=== PATIENT | female | born 1955 | race Caucasian/White ===

== ENCOUNTER 2018-03-03 04:15 | Inpatient (IN) | payer MEDICAID, SELFPAY ==
[2018-03-03] VITALS (30 sets, daily range): BP systolic 101–149; BP diastolic 30–78; PULSE 83–124; RESP 10–20; TEMP 35.6–37.7; O2SAT 94–100; BMI 21.0; BMI 22.4; BMI 22.5
--- NOTE | 2018-03-03 04:21 | NURSING ---
GLUCOSE READS HIGH
--- NOTE | 2018-03-03 04:25 | EKG12_ITS ---
Test Reason : Blood Pressure : / mmHG Vent. Rate : 113 BPM Atrial Rate : 094 BPM P-R Int : 000 ms QRS Dur : 086 ms QT Int : 472 ms P-R-T Axes : 000 043 050 degrees QTc Int : 647 ms Sinus tachycardia Nonspecific ST and T wave abnormality Prolonged QT Abnormal ECG Confirmed by MATT THOMAS, AHSAN ([id number]), graphic editor BLAISE KEENE ([id number] on 03/05/2018 10:59:23 AM Referred By: TAMARA Confirmed By:AHSAN GUTIERREZ MD
--- NOTE | 2018-03-03 04:27 | ED.VISSUMM ---
- ER Visit Summary Date of Service: 03/03/18 Chief Complaint: Decreased level of consciousness History of Present Illness: The patient is a 62 F who I am unable to obtain any useful history on. Patient is answering yes and no questions. She denies any fever or chills. No sore throat. She does report she has a cough that is productive. She is unsure when she last checked her sugar. She reports that she takes pills as well as insulin for her diabetes. Physical Examination: Vitals: Stable. Afebrile. General: Well-nourished and well-developed. Head: Normocephalic atraumatic. Neck: Supple, no lymphadenopathy. No JVD. Nontender. Cardiovascular: Tachycardic regular rhythm. No murmurs. Respiratory: No respiratory distress. Clear to auscultation bilaterally. Abdominal: Soft, nontender, nondistended, normal bowel sounds. No guarding, rebound, or peritoneal signs. Back: Nontender. Extremities: Nontender, no edema. Skin: Normal color, no rash. Neurologic: Lethargic, but arouses to voice. Moves all extremities well. Psych: Normal affect. Test Results: Accu-Chek is greater than 600. CBC is more for white count of 15.2 with 97 neutrophils and 5 lymphocytes. Chem-7 is more for chloride of 88, CO2 of 5, glucose of a 99, creatinine 1.94. Phosphorus is 8.2. Magnesium is 3.8. UA is negative for infection. Troponin is negative. She has moderate serum ketones. EKG is sinus tach at [address] changes. Chest x-ray shows chronic changes. Venous blood gas shows a pH of 7.026, CO2 of 12.1, and bicarb of 3.2. Emergency Department Course and Treatment: Patient had an IV placed. She was given 2 L normal saline. Patient was placed on an insulin drip. Treatment Plan: Patient will be admitted to the ICU for further evaluation and treatment. Disposition: Admitted in serious condition. Impression: 1. DKA. 2. Renal insufficiency. 3. Critical care time 30 minutes. This note was generated with [employer] software. It may contain incorrect words, spelling, and punctuation that were not noted in review of the chart prior to signing ED Disposition - Plan for ED Patient: Chief Complaint: Weakness Referrals: Care Physician,No Primary [Primary Care Provider] -
--- NOTE | 2018-03-03 04:35 | RAD_ITS ---
STUDY: X-RAY CHEST REASON FOR EXAM: Female, 62 years old. Shortness of breath. Diabetic emergency. TECHNIQUE: Single AP portable view of the chest. COMPARISON: None. FINDINGS: Lungs are underexpanded. There is no demonstrated pulmonary infiltrate. There is no demonstrated pleural abnormality. Normal heart size, taking into account limited depth of inspiration, leftward rotation, as well as AP portable technique. Normal mediastinum and morales. Normal visualized pulmonary arteries. There is atherosclerotic calcification of the aortic arch with tortuosity. There are diffuse degenerative changes of the visualized thoracic spine. Normal visualized ribs, clavicles, and shoulders. There is no demonstrated abnormality of the visualized soft tissue structures of the upper abdomen. RAD/Chest 1 View (Portable) IMPRESSION: No evidence for acute cardiopulmonary pathology. Electronically Signed: Sawyer Byrne MD at 5:36 EDT , Service support ,
[2018-03-03 04:42] LABS: Bacteria 0 SEEN /hpf (None Seen); Mucous, Urine 0 SEEN /hpf (<or=2+); Red Blood Cells-Urine 0 SEEN /hpf (0-5); Squamous Epithelial Cells - UA 0 SEEN /hpf (5-10); White Blood Cells 0 SEEN /hpf (0-5)
[2018-03-03 04:48] LABS: Color, Urine Yellow (Yellow); Glucose, Dipstick 1000 mg/dl (Normal); Leukocyte Esterase-Dipstick Negative /ul (Negative); Nitrite-Dipstick Negative (Negative); Occult Blood-Urine 25 /ul (Negative); Protein-Dipstick 100 mg/dl (Negative); Specific Gravity, Urine 1.015 (1.002-1.030); Urine Bilirubin Dipstick Negative (Negative); Urine Clarity Clear (Clear); Urine Urobilinogen Normal (Normal)
[2018-03-03 04:51] LABS: Bedside Glucose > 500 mg/dL (70-110)
[2018-03-03] MEDS: 0.9% Normal Saline 1,000 ML 999 ML IV ×3 (04:54→08:45)
[2018-03-03 05:00] LABS: Yeast-Urine RARE /hpf (None Seen)
[2018-03-03 05:02] LABS: Ketone-Dipstick 150 mg/dl (Negative)
--- NOTE | 2018-03-03 05:13 | CT_ITS ---
STUDY: CT BRAIN WITHOUT CONTRAST REASON FOR EXAM: Female, 62 years old. Decreased level of consciousness. Elevated blood pressure and blood sugar. RADIATION DOSAGE (If Supplied By Facility): CTDIvol = ( 44.99 ) mGy, DLP = ( 762.36 ) mGycm TECHNIQUE: Transaxial CT imaging of the brain was performed without administration of intravenous contrast material. Individualized dose optimization techniques were used for this CT. COMPARISON: None. FINDINGS: Normal soft tissue structures. Normal calvarium. There is mild cerebral atrophy with widening of the extra-axial spaces and ventricular dilatation. There are areas of decreased attenuation within the white matter tracts of the supratentorial brain, consistent with microvascular disease changes. Normal basal ganglia and thalami. Normal brainstem. Normal cerebellum. There is atherosclerotic calcification of the vertebral and cavernous carotid arteries. There is no intracranial hemorrhage. There are no findings of an acute ischemic infarction. Normal visualized paranasal sinuses. CT/Brain/Head without Contrast IMPRESSION: Chronic involutional changes of the brain. No demonstrated acute intracranial process. Electronically Signed: Sawyer Byrne MD at 6:20 EDT , Service support ,
[2018-03-03 05:16] LABS: Bedside Glucose > 500 mg/dL (70-110)
[2018-03-03 05:20] LABS: Absolute Neutrophil Count 13.6 X10^3/uL (2.0-7.7); Basophil# 0.02 X10^3/uL; Basophil% 0.1 % (0-1); Hematocrit 38.8 % (37-47); Hemoglobin 12.4 g/dl (12.0-15.0); Lymphocyte % 4.6 % (19-41); Mean Corpuscular Hgb 29.9 pg (27.0-32.0); Mean Corpuscular Volume 93.5 fL (81-99); Mean Platelet Vol. 13.2 fl (6.2-12.0); Monocyte# 0.79 X10^3/uL; Monocyte% 5.2 % (0-10); Neutrophil # 13.64 X10^3/uL (2.7-7.7); Neutrophil % 89.8 % (47-70); Platelet Count 326 K/mm3 (150-450); RBC Distribution Width CV 13.3 % (11.6-14.6); RBC Distribution Width SD 45.3 fl (35.1-43.9); Red Blood Count 4.15 M/mm3 (4.2-5.4); White Blood Count 15.2 K/mm3 (4.4-11.0)
[2018-03-03 05:21] LABS: Differential Indicated SCAN CRITERIA MET; POSITIVE COUNT NO; POSITIVE DIFFERENTIAL NO; POSITIVE MORPHOLOGY YES
[2018-03-03 05:32] LABS: Anion Gap 43 (5-15); BUN 29 mg/dL (7-18); BUN/Creat Ratio 14.9 RATIO (10-20); Chloride 88 mmol/L (98-107); Creatinine, Serum 1.94 mg/dL (0.55-1.02); EST Glomerular Filtration Rate 28 mL/min (>60); Est Glom Filt Rate - Afr Amer 33 mL/min (>60); Estimated Creatinine Clearance 23.48 ml/min; Glucose 899 mg/dL (74-106); Magnesium 3.8 mg/dL (1.6-2.6); Phosphorus 8.2 mg/dL (2.5-4.9); Potassium 3.6 mmol/L (3.5-5.1); Sodium Level 136 mmol/L (136-145)
--- NOTE | 2018-03-03 06:19 | NURSING ---
STILL READING HIGH
[2018-03-03 06:20] LABS: Differential Comment SCANNED
--- NOTE | 2018-03-03 06:37 | PCM.HP.STD ---
Problem List (1) DKA (diabetic ketoacidoses) Status: Acute Qualifiers: Diabetes mellitus type: type 2 Diabetes mellitus complication detail: without coma Qualified Code(s): E11.10 - Type 2 diabetes mellitus with ketoacidosis without coma (2) CINDY (acute kidney injury) Status: Acute (3) GERD (gastroesophageal reflux disease) Status: Chronic Qualifiers: Esophagitis presence: esophagitis presence not specified Qualified Code(s): K21.9 - Gastro-esophageal reflux disease without esophagitis (4) HLD (hyperlipidemia) Status: Chronic Qualifiers: Hyperlipidemia type: unspecified Qualified Code(s): E78.5 - Hyperlipidemia, unspecified (5) HTN (hypertension) Status: Chronic Qualifiers: Hypertension type: essential hypertension Qualified Code(s): I10 - Essential (primary) hypertension (6) Diabetes mellitus, type II Status: Chronic Qualifiers: Diabetes mellitus penitentiary insulin use: with manager intermediate use Diabetes mellitus complication status: with unspecified complications Qualified Code(s): E11.8 - Type 2 diabetes mellitus with unspecified complications; Z79.4 - MCFP (current) use of insulin History of Present Illness Date of Admission: 03/03/18 Chief Complaint: Family called 911 secondary to lethargy, confusion, N/V The patient is a 62 y/o F w/ PMHx: Diabetes mellitus type II, HTN, HLD, GERD although not best historian in current state who presents to the [facility] ED on 03/03/18 w/ history of being found by a neighbor and noted to be very lethargic and less responsive prompting presentation to the ED. In the emergency room patient is able to give some history but only able to answer yes and no questions. She does state that she is diabetic but cannot state whether she is type I or II, intensive, hyperlipidemia, reflux but no other information. To the ED physician she noted that she has had a mild cough and it has been productive however upon repeat questioning she denies any shortness of breath or cough. Family eventually arrived to the ED as they had called 911 and originally had her present to the hospital and noted that over the last 24 hours she has become more confused, lethargic, nauseous with emesis bouts, having very irregular behavior including stripping and defecating in the garbage can instead of the toilet. Family notes that she just recently moved in with them and was prior living alone. In the ED workup includes T 97.4, heart rate 112, BP 125/65, respiratory rate 16, 100% room air, CBC with WBC 15.2, hemoglobin 12.4, platelet 326 with left shift, BMP with chloride 88, carbon dioxide 5, anion gap 43, BUN/creatinine 29/1.94, glucose 899, hemoglobin A1c pending, phosphorus 8.2, magnesium 3.8, troponin less than 0.015, urinalysis with protein 100, glucose 1000, ketones 150, occult blood 25 otherwise unremarkable, chest x-ray with no acute findings, CT head with no acute findings. In the ED patient administered normal saline, insulin drip initiated. Upon admission Dr. Thomas, retail client solutions consultant contacted and consulted given severity of patient presentation and ICU admission. Past Medical History Past Medical History (Chronic Problems): Chronic Problems GERD (gastroesophageal reflux disease) (Chronic) HLD (hyperlipidemia) (Chronic) HTN (hypertension) (Chronic) Diabetes mellitus, type II (Chronic) Allergies Unable to Assess Allergy (Verified 03/03/18 04:17) Home Medications: Ambulatory Orders Medication Instructions Recorded Acetaminophen [Tylenol Extra 500 mg PO Q6H PRN PRN 03/03/18 Strength] Albuterol Inhaler [Ventolin Hfa 2 puff INHALATION Q6H PRN PRN 03/03/18 (SP)] Atorvastatin Calcium 40 mg PO DAILY 03/03/18 Calcium Citrate 200 mg PO DAILY 03/03/18 Carvedilol 6.25 mg PO BID 03/03/18 Flavoxate HCl 100 mg PO TID PRN 03/03/18 Gabapentin [Neurontin] 600 mg PO TIDCM 03/03/18 Guaifenesin [Mucinex] 600 mg PO BID 03/03/18 Insulin Aspart [Novolog Flexpen] 03/03/18 Insulin Glargine,Hum.rec.anlog 100 unit SQ 03/03/18 [Lantus Solostar] Loperamide HCl [Loperamide] 2 mg PO 4X/DAY PRN PRN 03/03/18 Magnesium Oxide [Mag-Ox 400] 400 mg PO DAILY 03/03/18 Metformin HCl 500 mg PO BID 03/03/18 Methocarbamol [Robaxin] 500 mg PO TID PRN 03/03/18 Omeprazole 40 mg PO DAILY 03/03/18 Potassium Citrate [Potassium 10 meq PO DAILY 03/03/18 Citrate ER] Surgical History: - - Patient may possibly have had hysterectomy per discussion but again poor historian currently. Family confirms . 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 Paternal History Items: - - Patient possibly stating that there is a maternal and paternal family history of heart disease and diabetes. Review of Systems Unable to obtain accurate/complete ROS d/t: Unable to obtain appropriate ROS secondary to acute presentation, confusion Comment: Family states that she has been confused, nauseous with bouts of emesis, moaning frequently, lethargic over the last 24 hours. VTE Information - Inpt Only VTE Present on Admission: No VTE Mechan Device Prophylaxis: SCD's VTE Pharm Prophylaxis ordered?: Yes Subjective: Laying in the ED bed, lethargic, increased respiratory rate, uncomfortable appearing. Objective: Physical Examination: General: awakens to stimuli, not markedly alert, not oriented, answering some questions w/ yes and no only, laying in the ED bed, ill appearing, moaning. Skin: normal color, turgor, no icterus, cyanosis. HEENT: AT/NC, EOM unable to be assessed, pupils sluggish, not markedly response, lazy eye present, dry MM, no carotid bruits or JVD noted. Lungs: Diminished BS BL bases, increased effort, some accessory muscle usage, purse lip breathing, no rales, ronchi or wheezing. Heart: Tachycardic with regular rhythm; no gallop, rub audible. Abdomen: soft, NTTP, ND, normal BS, no HSM. Extremities: no cyanosis, clubbing, or edema. Neurological: awakens to stimuli, not markedly alert, not oriented, answering some questions w/ yes and no only; cognitive function not intact; difficult to assess CM, moving all extremities, strength severely globally decreased secondary to acute presentation. Psychiatric: affect appears lethargic, no acute evidence of depressive or anxiety feelings. - Physical Exam Vital Signs Temp Pulse Resp BP Pulse Ox 97.4 F L 117 H 16 126/68 H 100 08/06/18 04:17 03/03/18 06:03 03/03/18 06:03 03/03/18 06:03 03/03/18 06:03 Oxygen Delivery Method Room Air Weight: 115 lb 4.828 oz Body Mass Index (BMI) 21.0 Finger Stick Blood Glucose 890 Laboratory Tests Past 24 Hrs 03/03/18 03/03/18 03/03/18 04:39 04:48 04:48 WBC 15.2 H RBC 4.15 L Hgb 12.4 Hct 38.8 MCV 93.5 MCH 29.9 MCHC 32.0 RDW 13.3 RDW Differential 45.3 H Plt Count 326 MPV 13.2 H Immature Gran % (Auto) 0.300 Neut % (Auto) 89.8 H Lymph % (Auto) 4.6 L [place] % (Auto) 5.2 Eos % (Auto) 0.0 Baso % (Auto) 0.1 Absolute Neuts (auto) 13.6 H Absolute Lymphs (auto) 0.70 L Total Counted Not Reportable Differential Comment SCANNED Sodium 136 Potassium 3.6 Chloride 88 L Carbon Dioxide 5.0 L* Anion Gap 43 H BUN 29 H Creatinine 1.94 H Estim Creat Clear Calc 23.48 Est GFR (MDRD) Af Amer 33 L Est GFR (MDRD) Non-Af 28 L BUN/Creatinine Ratio 14.9 Glucose 899 H* Hemoglobin A1c Calcium 9.0 Phosphorus 8.2 H Magnesium 3.8 H Troponin I < 0.015 Urine Color Yellow Urine Clarity Clear Urine pH 6.0 Ur Specific [place] 1.015 Urine Protein 100 H Urine Glucose (UA) 1000 H Urine Ketones 150 H Urine Occult Blood 25 H Urine Nitrite Negative Urine Bilirubin Negative Urine Urobilinogen Normal Ur Leukocyte Esterase Negative Urine RBC 0 SEEN Urine WBC 0 SEEN Ur Squamous Epith Cells 0 SEEN Urine Bacteria 0 SEEN Urine Mucus 0 SEEN Urine Yeast RARE Acetone Level 03/03/18 03/03/18 04:48 04:48 WBC RBC Hgb Hct MCV MCH MCHC RDW RDW Differential Plt Count MPV Immature Gran % (Auto) Neut % (Auto) Lymph % (Auto) [place] % (Auto) Eos % (Auto) Baso % (Auto) Absolute Neuts (auto) Absolute Lymphs (auto) Total Counted Differential Comment Sodium Potassium Chloride Carbon Dioxide Anion Gap BUN Creatinine Estim Creat Clear Calc Est GFR (MDRD) Af Amer Est GFR (MDRD) Non-Af BUN/Creatinine Ratio Glucose Hemoglobin A1c Pending Calcium Phosphorus Magnesium Troponin I Urine Color Urine Clarity Urine pH Ur Specific [place] Urine Protein Urine Glucose (UA) Urine Ketones Urine Occult Blood Urine Nitrite Urine Bilirubin Urine Urobilinogen Ur Leukocyte Esterase Urine RBC Urine WBC Ur Squamous Epith Cells Urine Bacteria Urine Mucus Urine Yeast Acetone Level MODERATE H POC Glucose 03/03/18 03/03/18 05:09 04:18 POC Glucose > 500 H* > 500 H* Assessment/Plan All Active Problems DKA (diabetic ketoacidoses) (Acute) CINDY (acute kidney injury) (Acute) The patient is a 62 y/o F w/ PMHx: Diabetes mellitus type II, HTN, HLD, GERD although not best historian in current state who presents to the [facility] ED on 03/03/18 w/ history of being found by a neighbor and noted to be very lethargic and less responsive prompting presentation to the ED. (1) Acute Encephalopathy secondary to DKA w/ Diabetes mellitus type ? II, Unclear w/ Metabolic Acidosis: In the ED workup includes T 97.4, heart rate 112, BP 125/65, respiratory rate 16, 100% room air, CBC with WBC 15.2, hemoglobin 12.4, platelet 326 with left shift, BMP with chloride 88, carbon dioxide 5, anion gap 43, BUN/creatinine 29/1.94, glucose 899, hemoglobin A1c pending, phosphorus 8.2, magnesium 3.8, troponin less than 0.015, urinalysis with protein 100, glucose 1000, ketones 150, occult blood 25 otherwise unremarkable, chest x-ray with no acute findings, CT head with no acute findings. Patient started on an insulin drip. Will admit to ICU, will consult retail client solutions consultant who is aware of admission, continue on insulin drip, check serial K+, glucose w/ IVF changes pending these levels, serial chemistry, obtain mag, phos daily w/ repletion as needed, transition to home SC regimen when gap closed w/ overlap on drip, nutrition consultation. Encouraged diet and insulin regimen compliance. ABG pending. TCK pending as unclear timeline from being found. (2) Suspected Acute kidney injury: Secondary to #1. Admission BUN/Cr 29/1.94, prior baseline creatinine unclear but given presentation suspect acute. Will aggressively hydrate, hold nephrotoxic medications and repeat chemistry in AM. If no improvement would plan FeNa assessment. (3) Hypertension:Hold home regimen given severity of encephalopathy, PRN lopressor. (4) Hyperlipidemia: Hold home statin regimen given severity of encephalopathy. (5) GERD: PPI. (6) DVT Prophylaxis: SCDs, heparin. (7) CODE status: Patient unable to discuss status. Family eventually arrived and notes that she does not have a healthcare power of district attorney or living will but that they are her closest living relatives (7 nephew with whom she recently moved in). Discussed CODE status at length including difference between FULL code, DNR-CCA and DNR-CC status. Following discussions about the differences in these status, family requested FULL code status. Advanced Care Planning Face to Face Time: 20 minutes. Code Visit Inpatient E&M: 90667 Init Hosp L3 Procedures: 42678 Advncd Care Plan 30 Min
--- NOTE | 2018-03-03 06:43 | HP.PCM_ITS ---
Problem List (1) DKA (diabetic ketoacidoses) Status: Acute Qualifiers: Diabetes mellitus type: type 2 Diabetes mellitus complication detail: without coma Qualified Code(s): E11.10 - Type 2 diabetes mellitus with ketoacidosis without coma (2) CINDY (acute kidney injury) Status: Acute (3) GERD (gastroesophageal reflux disease) Status: Chronic Qualifiers: Esophagitis presence: esophagitis presence not specified Qualified Code(s) : K21.9 - Gastro-esophageal reflux disease without esophagitis (4) HLD (hyperlipidemia) Status: Chronic Qualifiers: Hyperlipidemia type: unspecified Qualified Code(s): E78.5 - Hyperlipidemia , unspecified (5) HTN (hypertension) Status: Chronic Qualifiers: Hypertension type: essential hypertension Qualified Code(s): I10 - Essential (primary) hypertension (6) Diabetes mellitus, type II Status: Chronic Qualifiers: Diabetes mellitus long goods drier insulin use: with long goods drier use Diabetes mellitus complication status: with unspecified complications Qualified Code(s) : E11.8 - Type 2 diabetes mellitus with unspecified complications; Z79.4 - terminal system operator (current) use of insulin History of Present Illness Date of Admission: 03/03/18 Chief Complaint: Family called 911 secondary to lethargy, confusion, N/V The patient is a 62 y/o F w/ PMHx: Diabetes mellitus type II, HTN, HLD, GERD although not best historian in current state who presents to the [facility] ED on w/ history of being found by a neighbor and noted to be very lethargic and less responsive prompting presentation to the ED. In the emergency room patient is able to give some history but only able to answer yes and no questions. She does state that she is diabetic but cannot state whether she is type I or II, intensive, hyperlipidemia, reflux but no other information. To the ED physician she noted that she has had a mild cough and it has been productive however upon repeat questioning she denies any shortness of breath or cough. Family eventually arrived to the ED as they had called 911 and originally had her present to the hospital and noted that over the last 24 hours she has become more confused, lethargic, nauseous with emesis bouts, having very irregular behavior including stripping and defecating in the garbage can instead of the toilet. Family notes that she just recently moved in with them and was prior living alone. In the ED workup includes T 97.4, heart rate 112, BP 125/65, respiratory rate 16, 100% room air, CBC with WBC 15.2, hemoglobin 12.4, platelet 326 with left shift, BMP with chloride 88, carbon dioxide 5, anion gap 43, BUN/creatinine 29/1.94, glucose 899, hemoglobin A1c pending, phosphorus 8.2 , magnesium 3.8, troponin less than 0.015, urinalysis with protein 100, glucose 1000, ketones 150, occult blood 25 otherwise unremarkable, chest x-ray with no acute findings, CT head with no acute findings. In the ED patient administered normal saline, insulin drip initiated. Upon admission Dr. Thomas, business planning manager contacted and consulted given severity of patient presentation and ICU admission. Past Medical History Past Medical History (Chronic Problems): Chronic Problems GERD (gastroesophageal reflux disease) (Chronic) HLD (hyperlipidemia) (Chronic) HTN (hypertension) (Chronic) Diabetes mellitus, type II (Chronic) Allergies Unable to Assess Allergy (Verified 03/03/18 04:17) Home Medications: Ambulatory Orders Medication Instructions Recorded Acetaminophen [Tylenol Extra 500 mg PO Q6H PRN PRN 03/03/18 Strength] Albuterol Inhaler [Ventolin Hfa 2 puff INHALATION Q6H PRN PRN 03/03/18 (SP)] Atorvastatin Calcium 40 mg PO DAILY 03/03/18 Calcium Citrate 200 mg PO DAILY 03/03/18 Carvedilol 6.25 mg PO BID 03/03/18 Flavoxate HCl 100 mg PO TID PRN 03/03/18 Gabapentin [Neurontin] 600 mg PO TIDCM 03/03/18 Guaifenesin [Mucinex] 600 mg PO BID 03/03/18 Insulin Aspart [Novolog Flexpen] 03/03/18 Insulin Glargine,Hum.rec.anlog 100 unit SQ 03/03/18 [Lantus Solostar] Loperamide HCl [Loperamide] 2 mg PO 4X/DAY PRN PRN 03/03/18 Magnesium Oxide [Mag-Ox 400] 400 mg PO DAILY 03/03/18 Metformin HCl 500 mg PO BID 03/03/18 Methocarbamol [Robaxin] 500 mg PO TID PRN 03/03/18 Omeprazole 40 mg PO DAILY 03/03/18 Potassium Citrate [Potassium 10 meq PO DAILY 03/03/18 Citrate ER] Surgical History: - - Patient may possibly have had hysterectomy per discussion but again poor historian currently. Family confirms . Psychiatric History: No pertinent psych hx HUMAN PERFORMANCE CONSULTANT History: No pertinent HUMAN PERFORMANCE CONSULTANT history Lives: Alone Smoking Status: Unknown if ever smoked Tobacco Use: Non-smoker Alcohol: None Drugs: None - *Family History Maternal History Items: - - Patient possibly stating that there is a maternal and paternal family history of heart disease and diabetes. Paternal History Items: - - Patient possibly stating that there is a maternal and paternal family history of heart disease and diabetes. Review of Systems Unable to obtain accurate/complete ROS d/t: Unable to obtain appropriate ROS secondary to acute presentation, confusion Comment: Family states that she has been confused, nauseous with bouts of emesis , moaning frequently, lethargic over the last 24 hours. VTE Information - Inpt Only VTE Present on Admission: No VTE Mechan Device Prophylaxis: SCD's VTE Pharm Prophylaxis ordered?: Yes Subjective: Laying in the ED bed, lethargic, increased respiratory rate, uncomfortable appearing. Objective: Physical Examination: General: awakens to stimuli, not markedly alert, not oriented, answering some questions w/ yes and no only, laying in the ED bed, ill appearing, moaning. Skin: normal color, turgor, no icterus, cyanosis. HEENT: AT/NC, EOM unable to be assessed, pupils sluggish, not markedly response , lazy eye present, dry MM, no carotid bruits or JVD noted. Lungs: Diminished BS BL bases, increased effort, some accessory muscle usage, purse lip breathing, no rales, ronchi or wheezing. Heart: Tachycardic with regular rhythm; no gallop, rub audible. Abdomen: soft, NTTP, ND, normal BS, no HSM. Extremities: no cyanosis, clubbing, or edema. Neurological: awakens to stimuli, not markedly alert, not oriented, answering some questions w/ yes and no only; cognitive function not intact; difficult to assess CM, moving all extremities, strength severely globally decreased secondary to acute presentation. Psychiatric: affect appears lethargic, no acute evidence of depressive or anxiety feelings. - Physical Exam Vital Signs Temp Pulse Resp BP Pulse Ox 97.4 F L 117 H 16 126/68 H 100 08/06/18 04:17 03/03/18 06:03 03/03/18 06:03 03/03/18 06:03 03/03/18 06:03 Oxygen Delivery Method Room Air Weight: 115 lb 4.828 oz Body Mass Index (BMI) 21.0 Finger Stick Blood Glucose 890 Laboratory Tests Past 24 Hrs 03/03/18 03/03/18 03/03/18 04:39 04:48 04:48 WBC 15.2 H RBC 4.15 L Hgb 12.4 Hct 38.8 MCV 93.5 MCH 29.9 MCHC 32.0 RDW 13.3 RDW Differential 45.3 H Plt Count 326 MPV 13.2 H Immature Gran % (Auto) 0.300 Neut % (Auto) 89.8 H Lymph % (Auto) 4.6 L Cavalier % (Auto) 5.2 Eos % (Auto) 0.0 Baso % (Auto) 0.1 Absolute Neuts (auto) 13.6 H Absolute Lymphs (auto) 0.70 L Total Counted Not Reportable Differential Comment SCANNED Sodium 136 Potassium 3.6 Chloride 88 L Carbon Dioxide 5.0 L* Anion Gap 43 H BUN 29 H Creatinine 1.94 H Estim Creat Clear Calc 23.48 Est GFR (MDRD) Af Amer 33 L Est GFR (MDRD) Non-Af 28 L BUN/Creatinine Ratio 14.9 Glucose 899 H* Hemoglobin A1c Calcium 9.0 Phosphorus 8.2 H Magnesium 3.8 H Troponin I < 0.015 Urine Color Yellow Urine Clarity Clear Urine pH 6.0 Ur Specific Logan 1.015 Urine Protein 100 H Urine Glucose (UA) 1000 H Urine Ketones 150 H Urine Occult Blood 25 H Urine Nitrite Negative Urine Bilirubin Negative Urine Urobilinogen Normal Ur Leukocyte Esterase Negative Urine RBC 0 SEEN Urine WBC 0 SEEN Ur Squamous Epith Cells 0 SEEN Urine Bacteria 0 SEEN Urine Mucus 0 SEEN Urine Yeast RARE Acetone Level 03/03/18 03/03/18 04:48 04:48 WBC RBC Hgb Hct MCV MCH MCHC RDW RDW Differential Plt Count MPV Immature Gran % (Auto) Neut % (Auto) Lymph % (Auto) Cavalier % (Auto) Eos % (Auto) Baso % (Auto) Absolute Neuts (auto) Absolute Lymphs (auto) Total Counted Differential Comment Sodium Potassium Chloride Carbon Dioxide Anion Gap BUN Creatinine Estim Creat Clear Calc Est GFR (MDRD) Af Amer Est GFR (MDRD) Non-Af BUN/Creatinine Ratio Glucose Hemoglobin A1c Pending Calcium Phosphorus Magnesium Troponin I Urine Color Urine Clarity Urine pH Ur Specific Logan Urine Protein Urine Glucose (UA) Urine Ketones Urine Occult Blood Urine Nitrite Urine Bilirubin Urine Urobilinogen Ur Leukocyte Esterase Urine RBC Urine WBC Ur Squamous Epith Cells Urine Bacteria Urine Mucus Urine Yeast Acetone Level MODERATE H POC Glucose 03/03/18 03/03/18 05:09 04:18 POC Glucose > 500 H* > 500 H* Assessment/Plan All Active Problems DKA (diabetic ketoacidoses) (Acute) CINDY (acute kidney injury) (Acute) The patient is a 62 y/o F w/ PMHx: Diabetes mellitus type II, HTN, HLD, GERD although not best historian in current state who presents to the [facility] ED on w/ history of being found by a neighbor and noted to be very lethargic and less responsive prompting presentation to the ED. (1) Acute Encephalopathy secondary to DKA w/ Diabetes mellitus type ? II, Unclear w/ Metabolic Acidosis: In the ED workup includes T 97.4, heart rate 112 , BP 125/65, respiratory rate 16, 100% room air, CBC with WBC 15.2, hemoglobin 12.4, platelet 326 with left shift, BMP with chloride 88, carbon dioxide 5, anion gap 43, BUN/creatinine 29/1.94, glucose 899, hemoglobin A1c pending, phosphorus 8.2, magnesium 3.8, troponin less than 0.015, urinalysis with protein 100, glucose 1000, ketones 150, occult blood 25 otherwise unremarkable, chest x-ray with no acute findings, CT head with no acute findings. Patient started on an insulin drip. Will admit to ICU, will consult business planning manager who is aware of admission, continue on insulin drip, check serial K+, glucose w/ IVF changes pending these levels, serial chemistry, obtain mag, phos daily w/ repletion as needed, transition to home SC regimen when gap closed w/ overlap on drip, nutrition consultation. Encouraged diet and insulin regimen compliance. ABG pending. TCK pending as unclear timeline from being found. (2) Suspected Acute kidney injury: Secondary to #1. Admission BUN/Cr 29/1.94, prior baseline creatinine unclear but given presentation suspect acute. Will aggressively hydrate, hold nephrotoxic medications and repeat chemistry in AM. If no improvement would plan FeNa assessment. (3) Hypertension:Hold home regimen given severity of encephalopathy, PRN lopressor. (4) Hyperlipidemia: Hold home statin regimen given severity of encephalopathy. (5) GERD: PPI. (6) DVT Prophylaxis: SCDs, heparin. (7) CODE status: Patient unable to discuss status. Family eventually arrived and notes that she does not have a healthcare power of securities attorney or living will but that they are her closest living relatives (7 nephew with whom she recently moved in). Discussed CODE status at length including difference between FULL code, DNR-CCA and DNR-CC status. Following discussions about the differences in these status, family requested FULL code status. Advanced Care Planning Face to Face Time: 20 minutes. Code Visit Inpatient E&M: 91851 Init Hosp L3 Procedures: 39660 Advncd Care Plan 30 Min
--- NOTE | 2018-03-03 06:53 | NURSING ---
[id number] WHITE DKA
[2018-03-03 07:00] LABS: Bedside Glucose > 500 mg/dL (70-110)
[2018-03-03 07:00] LABS: Bedside Glucose > 500 mg/dL (70-110)
[2018-03-03 07:00] LABS: Bedside Glucose > 500 mg/dL (70-110)
[2018-03-03 07:17] LABS: CPK Total, Creatine Kinase 123 U/L (26-192)
--- NOTE | 2018-03-03 07:20 | NURSING ---
GLUCOSE READING HIGH.
[2018-03-03] MEDS: 0.9% NaCl Peripheral Flush Adult/Peds IV ×4 (08:35→21:01)
[2018-03-03 08:45] LABS: Anion Gap 34 (5-15); BUN 28 mg/dL (7-18); BUN/Creat Ratio 14.9 RATIO (10-20); Calcium,Total 8.7 mg/dL (8.5-10.1); Chloride 100 mmol/L (98-107); Creatinine, Serum 1.88 mg/dL (0.55-1.02); EST Glomerular Filtration Rate 29 mL/min (>60); Est Glom Filt Rate - Afr Amer 35 mL/min (>60); Glucose 720 mg/dL (74-106); Potassium 2.3 mmol/L (3.5-5.1); Sodium Level 140 mmol/L (136-145)
--- NOTE | 2018-03-03 09:04 | PCM.PN.HOSP ---
Subjective: Patient seen and examined. Admitted in the early hours of 03/03/2018 after being found very lethargic by her neighbor. She is a known diabetic but could not see which type and states she had been taking her medications. She was found to be in DKA in the emergency room with bicarb of 5, anion gap 43 blood glucose of 899 and urine ketones of 150. She is being managed for DKA on insulin drip and normal saline. She was admitted to the ICU. Patient seen and examined. She remains confused and very lethargic and slurring his speech. She denied any fever or chills and denied any cough. She also denies any chest pain, shortness of breath, but admitted to abdominal pain, she denied any diarrhea vomiting. Patient states that she was taking basically on insulin and remembers that she was taken at 15 units 3 times a day. I doubt this is very accurate though as basically as a long-acting insulin. Labs and vitals reviewed. 12 point Review of systems otherwise negative. Vitals/I&O's: Vital Signs Temp Pulse Resp BP Pulse Ox 97.4 F L 117 H 10 L 123/53 H 97 03/03/18 04:17 03/03/18 07:25 03/03/18 07:25 03/03/18 07:25 03/03/18 08:50 Oxygen Delivery Method Room Air Weight: 107 lb 9.6 oz Body Mass Index (BMI) 22.4 General: Alert, Lethargic, - - alert and oriented x 2 HEENT: Atraumatic, PERRLA, EOMI, Normocephalic Oral: Dry Mucosa Neck: Supple, No JVD, Negative Carotid Bruits Lungs: Clear to auscultation, Normal air movement, No rhonchi Cardiovascular: Regular Rhythm, Normal S1, Normal S2, Tachycardic, - - grade 2 systolic murmur in mitral area Abdomen: Bowel Sounds Present, Soft, Non Tender, Non-Distended, No Hepato-splenomegaly Extremities: No clubbing, No cyanosis, No edema, Capillary Refill Less than 3 Seconds Skin: No rashes, No breakdown Musculoskeletal: No Tenderness to Palpation of Joints or Extremities Lymphatic: No Cervical, Supraclavicular, or Inguinal Adenopathy Neurological: Cranial nerves II-XII grossly intact, - - power 4/5 in all extremities. Psych/Mental Status: - - lethargic Laboratory Results 03/03/18 06:54: POC Glucose > 500 H* 03/03/18 07:50: MRSA (PCR) Pending 03/03/18 08:15: Sodium 140, Potassium 2.3 L*, Chloride 100, Carbon Dioxide 6.0 L*, Anion Gap 34 H, BUN 28 H, Creatinine 1.88 H, Estim Creat Clear Calc 23.60, Est GFR (MDRD) Af Amer 35 L, Est GFR (MDRD) Non-Af 29 L, BUN/Creatinine Ratio 14.9, Glucose 720 H*, Calcium 8.7 Current Medications Acetaminophen (Tylenol) 650 mg RECTAL Q4H PRN PRN PRN Reason: fever, pain Al Hydroxide/Mg Hydroxide (Mylanta Ii) 30 ml PO Q6H PRN PRN PRN Reason: Gastric burning Dextrose (D50w Syringe) 0 gm IV X1 PRN; Protocol PRN Reason: HYPOGLYCEMIA Heparin Sodium (Porcine) (Heparin Na) 5,000 unit SC Q8 BUFFY Sodium Chloride () 1,000 mls @ 999 mls/hr IV .Q1H1M ONE Last Admin: 03/03/18 04:54 Dose: 999 mls/hr Insulin Human Lispro 100 unit/ (Sodium Chloride) 100 mls @ 5.23 mls/hr IV .Q19H8M BUFFY; 0.1 UNITS/KG/HR PRN Reason: Protocol Last Admin: 03/03/18 05:45 Dose: 5.23 mls/hr Sodium Chloride () 1,000 mls @ 999 mls/hr IV .Q1H1M BUFFY Stop: 03/03/18 09:26 Last Admin: 03/03/18 08:00 Dose: 999 mls/hr Pantoprazole Sodium 40 mg/ (Sodium Chloride) 110 mls @ 330 mls/hr IV Q12 BUFFY Sodium Chloride () 250 mls @ 15 mls/hr IV .[id number] PRN PRN Reason: SALINE FLUSH Potassium Chloride (Kcl 10meq/100ml) 10 meq in 100 mls @ 100 mls/hr IV BOLUS Q1H BUFFY Stop: 03/03/18 13:29 Magnesium Hydroxide (Milk Of Magnesia) 30 ml PO DAILY PRN PRN PRN Reason: Constipation Metoprolol Tartrate (Lopressor (Beta Daisy)) 5 mg IV Q6H PRN PRN Reason: SBP > 160, hold for HR < 60 Ondansetron HCl (Zofran) 4 mg IV Q8H PRN PRN PRN Reason: NAUSEA Promethazine HCl (Phenergan) 12.5 mg IV Q6H PRN PRN PRN Reason: NAUSEA/VOMITING Sodium Chloride () 5 - 30 ml IV UD PRN PRN Reason: SALINE FLUSH Last Admin: 03/03/18 08:35 Dose: 20 ml Medical Necessity - Tobacco Use Smoking Status: Former smoker Tobacco Use: Non-smoker Assessment/Plan All Active Problems DKA (diabetic ketoacidoses) (Acute) CINDY (acute kidney injury) (Acute) 1. DKA in a known diabetic likely due to noncompliance brought in very lethargic blood sugar 899 on admission, A1C pending. etiology of DKA likely due to noncompliance, initial troponin was negative, and EKG shows no acute ST changes. Patient cannot say how compliant she is with her meds anion gap of 43 on admission, now 36; serum acetone level was moderate. UA showed no evidence of UTI. patient remains very lethargic; bicarb is now 6 on IVF NS and insulin drip ABG not done in the ED; will recommend getting ABG if pH <6.9, will benefit from bicarb magnesium was 3.8, phosphorous was 8.2 will monitor as she may need intubation o/a of severe metabolic acidosis accounting coordinator on board 2. Hypokalemia K s 2.3, was 3.6 on admission. Aggressive replacement with IV potassium; will switch IVF to NS with KCl likely due to insulin pushing potassium into cells will monitor 3. Acute metabolic encephalopathy due to DKA management as per 1. will monitor for resolution with administration of IVF and insulin drip 4. CINDY due to dehydration Cr was 1.94 on admission, now 1.88 no baseline in EMR will monitor with IVF administration 5. Hypertension: BP meds on hold o/a of severe encephalopathy. On carvedilol at home. Will monitor. IV lopressor prn. 6. Hyperlipidemia: on statin. 7. GERD: on PPI 8. DVT prophylaxis: heparin Code status: full code. Code Visit Inpatient E&M: 46475 Subs Hosp L3
[2018-03-03 09:17] LABS: Partial Thromboplast Time 21.8 Seconds (24.1-36.2); Prothrombin Time (Protime)PT. 13.3 SECONDS (11.7-14.9)
--- NOTE | 2018-03-03 09:20 | PN_ITS ---
Subjective: Patient seen and examined. Admitted in the early hours of 03/03/2018 after being found very lethargic by her neighbor. She is a known diabetic but could not see which type and states she had been taking her medications. She was found to be in DKA in the emergency room with bicarb of 5, anion gap 43 blood glucose of 899 and urine ketones of 150. She is being managed for DKA on insulin drip and normal saline. She was admitted to the ICU. Patient seen and examined. She remains confused and very lethargic and slurring his speech. She denied any fever or chills and denied any cough. She also denies any chest pain, shortness of breath, but admitted to abdominal pain , she denied any diarrhea vomiting. Patient states that she was taking basically on insulin and remembers that she was taken at 15 units 3 times a day. I doubt this is very accurate though as basically as a long-acting insulin. Labs and vitals reviewed. 12 point Review of systems otherwise negative. Vitals/I&O's: Vital Signs Temp Pulse Resp BP Pulse Ox 97.4 F L 117 H 10 L 123/53 H 97 03/03/18 04:17 03/03/18 07:25 03/03/18 07:25 03/03/18 07:25 03/03/18 08:50 Oxygen Delivery Method Room Air Weight: 107 lb 9.6 oz Body Mass Index (BMI) 22.4 General: Alert, Lethargic, - - alert and oriented x 2 HEENT: Atraumatic, PERRLA, EOMI, Normocephalic Oral: Dry Mucosa Neck: Supple, No JVD, Negative Carotid Bruits Lungs: Clear to auscultation, Normal air movement, No rhonchi Cardiovascular: Regular Rhythm, Normal S1, Normal S2, Tachycardic, - - grade 2 systolic murmur in mitral area Abdomen: Bowel Sounds Present, Soft, Non Tender, Non-Distended, No Hepato- splenomegaly Extremities: No clubbing, No cyanosis, No edema, Capillary Refill Less than 3 Seconds Skin: No rashes, No breakdown Musculoskeletal: No Tenderness to Palpation of Joints or Extremities Lymphatic: No Cervical, Supraclavicular, or Inguinal Adenopathy Neurological: Cranial nerves II-XII grossly intact, - - power 4/5 in all extremities. Psych/Mental Status: - - lethargic Laboratory Results 03/03/18 06:54: POC Glucose > 500 H* 03/03/18 07:50: MRSA (PCR) Pending 03/03/18 08:15: Sodium 140, Potassium 2.3 L*, Chloride 100, Carbon Dioxide 6.0 L *, Anion Gap 34 H, BUN 28 H, Creatinine 1.88 H, Estim Creat Clear Calc 23.60, Est GFR (MDRD) Af Amer 35 L, Est GFR (MDRD) Non-Af 29 L, BUN/Creatinine Ratio 14.9, Glucose 720 H*, Calcium 8.7 Current Medications Acetaminophen (Tylenol) 650 mg RECTAL Q4H PRN PRN PRN Reason: fever, pain Al Hydroxide/Mg Hydroxide (Mylanta Ii) 30 ml PO Q6H PRN PRN PRN Reason: Gastric burning Dextrose (D50w Syringe) 0 gm IV X1 PRN; Protocol PRN Reason: HYPOGLYCEMIA Heparin Sodium (Porcine) (Heparin Na) 5,000 unit SC Q8 BUFFY Sodium Chloride () 1,000 mls @ 999 mls/hr IV .Q1H1M ONE Last Admin: 03/03/18 04:54 Dose: 999 mls/hr Insulin Human Lispro 100 unit/ (Sodium Chloride) 100 mls @ 5.23 mls/hr IV .Q19H8M BUFFY; 0.1 UNITS/KG/HR PRN Reason: Protocol Last Admin: 03/03/18 05:45 Dose: 5.23 mls/hr Sodium Chloride () 1,000 mls @ 999 mls/hr IV .Q1H1M BUFFY Stop: 03/03/18 09:26 Last Admin: 03/03/18 08:00 Dose: 999 mls/hr Pantoprazole Sodium 40 mg/ (Sodium Chloride) 110 mls @ 330 mls/hr IV Q12 BUFFY Sodium Chloride () 250 mls @ 15 mls/hr IV .[id number] PRN PRN Reason: SALINE FLUSH Potassium Chloride (Kcl 10meq/100ml) 10 meq in 100 mls @ 100 mls/hr IV BOLUS Q1H BUFFY Stop: 03/03/18 13:29 Magnesium Hydroxide (Milk Of Magnesia) 30 ml PO DAILY PRN PRN PRN Reason: Constipation Metoprolol Tartrate (Lopressor (Beta Daisy)) 5 mg IV Q6H PRN PRN Reason: SBP > 160, hold for HR < 60 Ondansetron HCl (Zofran) 4 mg IV Q8H PRN PRN PRN Reason: NAUSEA Promethazine HCl (Phenergan) 12.5 mg IV Q6H PRN PRN PRN Reason: NAUSEA/VOMITING Sodium Chloride () 5 - 30 ml IV UD PRN PRN Reason: SALINE FLUSH Last Admin: 03/03/18 08:35 Dose: 20 ml Medical Necessity - Tobacco Use Smoking Status: Former smoker Tobacco Use: Non-smoker Assessment/Plan All Active Problems DKA (diabetic ketoacidoses) (Acute) CINDY (acute kidney injury) (Acute) 1. DKA in a known diabetic likely due to noncompliance * brought in very lethargic * blood sugar 899 on admission, A1C pending. * etiology of DKA likely due to noncompliance, initial troponin was negative, and EKG shows no acute ST changes. Patient cannot say how compliant she is with her meds * anion gap of 43 on admission, now 36; serum acetone level was moderate. * UA showed no evidence of UTI. * patient remains very lethargic; bicarb is now 6 * on IVF NS and insulin drip * ABG not done in the ED; will recommend getting ABG * if pH <6.9, will benefit from bicarb * magnesium was 3.8, phosphorous was 8.2 * will monitor as she may need intubation o/a of severe metabolic acidosis * information technology data analyst on board * 2. Hypokalemia * K s 2.3, was 3.6 on admission. * Aggressive replacement with IV potassium; * will switch IVF to NS with KCl * likely due to insulin pushing potassium into cells * will monitor * 3. Acute metabolic encephalopathy due to DKA * management as per 1. * will monitor for resolution with administration of IVF and insulin drip * * 4. CINDY due to dehydration * Cr was 1.94 on admission, now 1.88 * no baseline in EMR * will monitor with IVF administration * 5. Hypertension: * BP meds on hold o/a of severe encephalopathy. * On carvedilol at home. Will monitor. IV lopressor prn. * 6. Hyperlipidemia: on statin. 7. GERD: on PPI 8. DVT prophylaxis: heparin Code status: full code. Code Visit Inpatient E&M: 89216 Subs Hosp L3
[2018-03-03] MEDS: Ondansetron 4 MG/2 ML Vial IV (09:24)
--- NOTE | 2018-03-03 10:10 | RAD_ITS ---
STUDY: X-RAY CHEST REASON FOR EXAM: Female, 62 years old. Line placement TECHNIQUE: Single AP portable view of the chest. COMPARISON: 03/03/2018 FINDINGS: A new right internal jugular central venous catheter is seen with the tip in the SVC. Cardiac monitoring leads overlie the chest. The lungs are underinflated. There is no demonstrated pleural abnormality. Normal size heart. Normal mediastinum and morales. Normal visualized pulmonary arteries. There is atherosclerotic calcification of the aortic arch with tortuosity. There are diffuse degenerative changes of the visualized thoracic spine. Normal visualized ribs, clavicles, and shoulders. There is no demonstrated abnormality of the visualized soft tissue structures of the upper abdomen. RAD/CXR for Line Placement IMPRESSION: Right internal jugular central venous catheter is seen with the tip in the SVC. No pneumothorax. Electronically Signed: Keven Contreras DO at 10:48 EDT Tel , Service support ,
[2018-03-03] MEDS: 0.9% Normal Saline 1,000 ML 150 ML IV (10:26)
--- NOTE | 2018-03-03 10:42 | PCM.CON.CC ---
Problem List (1) GERD (gastroesophageal reflux disease) Status: Chronic Qualifiers: Esophagitis presence: esophagitis presence not specified Qualified Code(s): K21.9 - Gastro-esophageal reflux disease without esophagitis (2) HLD (hyperlipidemia) Status: Chronic Qualifiers: Hyperlipidemia type: unspecified Qualified Code(s): E78.5 - Hyperlipidemia, unspecified (3) HTN (hypertension) Status: Chronic Qualifiers: Hypertension type: essential hypertension Qualified Code(s): I10 - Essential (primary) hypertension (4) Diabetes mellitus, type II Status: Chronic Qualifiers: Diabetes mellitus local intermodal truck driver insulin use: with local intermodal truck driver use Diabetes mellitus complication status: with unspecified complications Qualified Code(s): E11.8 - Type 2 diabetes mellitus with unspecified complications; Z79.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 on 03/03/2018 after being found by a neighbor and noted to be very lethargic. Reportedly 911 was called and patient was found confused, lethargic, nauseous with multiple bouts of emesis and very irregular behavior including defecating in the garbage instead of using the toilet. Patient had reportedly lived alone in the [facility], but was recently moved to her niece's house. On presentation to the emergency room, patient was noted to be tachycardic with a heart rate of 112 bpm and saturating 100% on room air. Laboratory workup showed hemoglobin of 12.4 with an anion gap of 43 and creatinine of 1.94. Glucose was noted to be 899. Chest x-ray and CT head did not show any acute findings. Patient was transferred to the intensive care unit for further monitoring. Shortly after arrival to the intensive care unit, patient's BMP showed a potassium of 2.3 with an elevation in bicarbonate to 6. Insulin drip was held secondary to profound hypokalemia. Consent was obtained and central line was placed by nurse practitioner. Patient tolerated the procedure well. Potassium is currently infusing and insulin drip is off. Blood sugars have been held during this time. Insulin drip will likely be re-initiated once potassium is improved. Patient is very confused and unable to provide any history at this time. Patient has a trash bag of medications, but reportedly does not take any of them. Hemoglobin A1c and MRSA screen is currently pending. No old data is available for comparison. Past Medical History Past Medical History (Chronic Problems): Chronic Problems GERD (gastroesophageal reflux disease) (Chronic) HLD (hyperlipidemia) (Chronic) HTN (hypertension) (Chronic) Diabetes mellitus, type II (Chronic) Allergies Unable to Assess Allergy (Verified 03/03/18 04:17) Home Medications: Ambulatory Orders Medication Instructions Recorded Acetaminophen [Tylenol Extra 500 mg PO Q6H PRN PRN 03/03/18 Strength] Albuterol Inhaler [Ventolin Hfa 2 puff INHALATION Q6H PRN PRN 03/03/18 (SP)] Atorvastatin Calcium 40 mg PO DAILY 03/03/18 Calcium Citrate 200 mg PO DAILY 03/03/18 Carvedilol 6.25 mg PO BID 03/03/18 Flavoxate HCl 100 mg PO TID PRN 03/03/18 Gabapentin [Neurontin] 600 mg PO TIDCM 03/03/18 Guaifenesin [Mucinex] 600 mg PO BID 03/03/18 Insulin Aspart [Novolog Flexpen] 03/03/18 Insulin Glargine,Hum.rec.anlog 100 unit SQ 03/03/18 [Lantus Solostar] Loperamide HCl [Loperamide] 2 mg PO 4X/DAY PRN PRN 03/03/18 Magnesium Oxide [Mag-Ox 400] 400 mg PO DAILY 03/03/18 Metformin HCl 500 mg PO BID 03/03/18 Methocarbamol [Robaxin] 500 mg PO TID PRN 03/03/18 Omeprazole 40 mg PO DAILY 03/03/18 Potassium Citrate [Potassium 10 meq PO DAILY 03/03/18 Citrate ER] Surgical History: - - Patient may possibly have had hysterectomy per discussion but again poor historian currently. Family confirms . 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 Paternal History Items: - - Patient possibly stating that there is a maternal and paternal family history of heart disease and diabetes. Review of Systems Unable to obtain accurate/complete ROS d/t: Confusion Objective: All chest x-rays were personally reviewed. This shows a possible right lower lobe infiltrate. CT scan of the head shows age-appropriate changes. - Physical Exam General: - - RASS -1. Appears older than stated age. Vocalizes intermittently. HEENT: Atraumatic, PERRLA, EOMI, - - Scleral icterus or injection noted. Exotropia noted of the left eye Oral: No Gingival or Mucosal Lesions/ Ulcerations, Dry Mucosa, - - Poor dentition Neck: Supple, No JVD, No Nodes, Trachea Midline Lungs: No rhonchi, No wheeze, No rales, Diminished, - - Symmetric expansion. No dullness to percussion. Occasional nonproductive cough noted Cardiovascular: Normal S1, Normal S2, No murmurs, No rub noted, No Gallop, Tachycardic Abdomen: Bowel Sounds Present, Soft, Non Tender, Non-Distended Extremities: No clubbing, No cyanosis, No edema, Capillary Refill Less than 3 Seconds Skin: No rashes, No breakdown Musculoskeletal: No Tenderness to Palpation of Joints or Extremities Lymphatic: No Cervical, Supraclavicular, or Inguinal Adenopathy Neurological: - - Not cooperative with exam. Only answers yes and no intermittently. Strength appears to be decreased globally without focal neurologic deficits. Psych/Mental Status: Flat Affect, Restless Vital Signs Temp Pulse Resp BP Pulse Ox 36.3 C L 117 H 10 L 123/53 H 97 03/03/18 04:17 03/03/18 07:25 03/03/18 07:25 03/03/18 07:25 03/03/18 08:50 Oxygen Delivery Method Room Air Weight: 48.807 kg Body Mass Index (BMI) 22.4 Laboratory Tests 03/03/18 03/03/18 03/03/18 04:18 04:39 04:48 WBC 15.2 H RBC 4.15 L Hgb 12.4 Hct 38.8 MCV 93.5 MCH 29.9 MCHC 32.0 RDW 13.3 RDW Differential 45.3 H Plt Count 326 MPV 13.2 H Immature Gran % (Auto) 0.300 Neut % (Auto) 89.8 H Lymph % (Auto) 4.6 L [place] % (Auto) 5.2 Eos % (Auto) 0.0 Baso % (Auto) 0.1 Absolute Neuts (auto) 13.6 H Absolute Lymphs (auto) 0.70 L Total Counted Not Reportable Differential Comment SCANNED PT INR APTT Sodium Potassium Chloride Carbon Dioxide Anion Gap BUN Creatinine Estim Creat Clear Calc Est GFR (MDRD) Af Amer Est GFR (MDRD) Non-Af BUN/Creatinine Ratio Glucose Hemoglobin A1c Calcium Phosphorus Magnesium Total Creatine Kinase Troponin I Urine Color Yellow Urine Clarity Clear Urine pH 6.0 Ur Specific [place] 1.015 Urine Protein 100 H Urine Glucose (UA) 1000 H Urine Ketones 150 H Urine Occult Blood 25 H Urine Nitrite Negative Urine Bilirubin Negative Urine Urobilinogen Normal Ur Leukocyte Esterase Negative Urine RBC 0 SEEN Urine WBC 0 SEEN Ur Squamous Epith Cells 0 SEEN Urine Bacteria 0 SEEN Urine Mucus 0 SEEN Urine Yeast RARE Acetone Level POC Glucose > 500 H* 03/03/18 03/03/18 03/03/18 04:48 04:48 04:48 WBC RBC Hgb Hct MCV MCH MCHC RDW RDW Differential Plt Count MPV Immature Gran % (Auto) Neut % (Auto) Lymph % (Auto) [place] % (Auto) Eos % (Auto) Baso % (Auto) Absolute Neuts (auto) Absolute Lymphs (auto) Total Counted Differential Comment PT INR APTT Sodium 136 Potassium 3.6 Chloride 88 L Carbon Dioxide 5.0 L* Anion Gap 43 H BUN 29 H Creatinine 1.94 H Estim Creat Clear Calc 23.48 Est GFR (MDRD) Af Amer 33 L Est GFR (MDRD) Non-Af 28 L BUN/Creatinine Ratio 14.9 Glucose 899 H* Hemoglobin A1c 14.1 H Calcium 9.0 Phosphorus 8.2 H Magnesium 3.8 H Total Creatine Kinase Troponin I < 0.015 Urine Color Urine Clarity Urine pH Ur Specific [place] Urine Protein Urine Glucose (UA) Urine Ketones Urine Occult Blood Urine Nitrite Urine Bilirubin Urine Urobilinogen Ur Leukocyte Esterase Urine RBC Urine WBC Ur Squamous Epith Cells Urine Bacteria Urine Mucus Urine Yeast Acetone Level MODERATE H POC Glucose 03/03/18 03/03/1818 04:48 05:09 05:55 WBC RBC Hgb Hct MCV MCH MCHC RDW RDW Differential Plt Count MPV Immature Gran % (Auto) Neut % (Auto) Lymph % (Auto) [place] % (Auto) Eos % (Auto) Baso % (Auto) Absolute Neuts (auto) Absolute Lymphs (auto) Total Counted Differential Comment PT INR APTT Sodium Potassium Chloride Carbon Dioxide Anion Gap BUN Creatinine Estim Creat Clear Calc Est GFR (MDRD) Af Amer Est GFR (MDRD) Non-Af BUN/Creatinine Ratio Glucose Hemoglobin A1c Calcium Phosphorus Magnesium Total Creatine Kinase 123 Troponin I Urine Color Urine Clarity Urine pH Ur Specific [place] Urine Protein Urine Glucose (UA) Urine Ketones Urine Occult Blood Urine Nitrite Urine Bilirubin Urine Urobilinogen Ur Leukocyte Esterase Urine RBC Urine WBC Ur Squamous Epith Cells Urine Bacteria Urine Mucus Urine Yeast Acetone Level POC Glucose > 500 H* > 500 H* 03/03/18 03/03/18 03/03/18 06:18 06:54 08:15 WBC RBC Hgb Hct MCV MCH MCHC RDW RDW Differential Plt Count MPV Immature Gran % (Auto) Neut % (Auto) Lymph % (Auto) [place] % (Auto) Eos % (Auto) Baso % (Auto) Absolute Neuts (auto) Absolute Lymphs (auto) Total Counted Differential Comment PT INR APTT Sodium 140 Potassium 2.3 L* Chloride 100 Carbon Dioxide 6.0 L* Anion Gap 34 H BUN 28 H Creatinine 1.88 H Estim Creat Clear Calc 23.60 Est GFR (MDRD) Af Amer 35 L Est GFR (MDRD) Non-Af 29 L BUN/Creatinine Ratio 14.9 Glucose 720 H* Hemoglobin A1c Calcium 8.7 Phosphorus Magnesium Total Creatine Kinase Troponin I Urine Color Urine Clarity Urine pH Ur Specific [place] Urine Protein Urine Glucose (UA) Urine Ketones Urine Occult Blood Urine Nitrite Urine Bilirubin Urine Urobilinogen Ur Leukocyte Esterase Urine RBC Urine WBC Ur Squamous Epith Cells Urine Bacteria Urine Mucus Urine Yeast Acetone Level POC Glucose > 500 H* > 500 H* 03/03/18 08:50 WBC RBC Hgb Hct MCV MCH MCHC RDW RDW Differential Plt Count MPV Immature Gran % (Auto) Neut % (Auto) Lymph % (Auto) [place] % (Auto) Eos % (Auto) Baso % (Auto) Absolute Neuts (auto) Absolute Lymphs (auto) Total Counted Differential Comment PT 13.3 INR 1.0 APTT 21.8 L Sodium Potassium Chloride Carbon Dioxide Anion Gap BUN Creatinine Estim Creat Clear Calc Est GFR (MDRD) Af Amer Est GFR (MDRD) Non-Af BUN/Creatinine Ratio Glucose Hemoglobin A1c Calcium Phosphorus Magnesium Total Creatine Kinase Troponin I Urine Color Urine Clarity Urine pH Ur Specific [place] Urine Protein Urine Glucose (UA) Urine Ketones Urine Occult Blood Urine Nitrite Urine Bilirubin Urine Urobilinogen Ur Leukocyte Esterase Urine RBC Urine WBC Ur Squamous Epith Cells Urine Bacteria Urine Mucus Urine Yeast Acetone Level POC Glucose Clinical Impression(s) from Imaging Studies Chest X-Ray 03/03/18 04:35 IMPRESSION: No evidence for acute cardiopulmonary pathology. Electronically Signed: Sawyer Byrne MD at 5:36 EDT , Service support , Brain CT 03/03/18 05:13 IMPRESSION: Chronic involutional changes of the brain. No demonstrated acute intracranial process. Electronically Signed: Sawyer Byrne MD at 6:20 EDT , Service support , Chest X-Ray 03/03/18 10:10 IMPRESSION: Right internal jugular central venous catheter is seen with the tip in the SVC. No pneumothorax. Electronically Signed: Keven Contreras DO at 10:48 EDT Tel , Service support , Assessment/Plan RECOMMENDATIONS: 1. Aggressive potassium repletion 2. Reinitiate insulin drip per protocol once potassium above 3 3. Initiate delirium protocol 4. Avoid contrast and nephrotoxic medications 5. Hold all baseline medications until further information available 6. Probable need for longterm placement at discharge IMPRESSIONS: 1. DKA with severe metabolic acidosis secondary to possible pneumonia Patient with reported type 2 diabetes mellitus and profound blood sugars on presentation. Drip has been held secondary to severe hypokalemia. Patient will continue with DKA per protocol once potassium has been repleted moving forward. Patient appears to be significantly volume depleted. Will repeat chest x-ray tomorrow to see if infiltrate in the right lower lobe. Cannot exclude an element of aspiration pneumonia given patient's current mental status. 2. Hypokalemia No EKG changes are noted at this time, so calcium not given. Patient did present with profound acidemia and a low normal potassium. Patient with significant drop in potassium following initiation of insulin drip. This has been held for now. Clinical suspicion for 2-300 mEq of potassium depleted. Central line has been placed. Aggressive repletion has been ordered. Continue with intermittent BMPs for evaluation. 3. Suspected acute kidney injury No baseline information is available at this time as the patient's baseline creatinine. Patient does have an elevated creatinine that appears to be responding to some fluids. Will attempt to obtain old information. Monitor urine output. Could investigate with a FENa if not improving after fluid hydration. 4. Hypertension/hyperlipidemia/GERD/poor background information Complicates care, management, recovery and prognosis. Patient with multiple medications, but appears to be nonadherent. Will hold on all medications for now and reinitiate in a stepwise fashion. 5. CODE STATUS Patient currently confused. Full CODE STATUS has been requested by family. TIME: 37 minutes of critical care time spent spent addressing patient's DKA, hypokalemia, acute kidney injury, review of all data and collaboration with care team. (9 AM to 11 AM)
[2018-03-03 10:47] LABS: Hemoglobin A1c 14.1 % (4.2-6.3)
--- NOTE | 2018-03-03 10:47 | CON.PCM_ITS ---
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 Diabetes mellitus complication status: with unspecified complications Qualified Code(s) : E11.8 - Type 2 diabetes mellitus with unspecified complications; Z79.4 - keno terminal operator (current) use of insulin (5) DKA (diabetic ketoacidoses) Status: Acute Qualifiers: Diabetes mellitus type: type 2 Diabetes mellitus complication detail: without coma Qualified Code(s): E11.10 - Type 2 diabetes mellitus with ketoacidosis without coma (6) CINDY (acute kidney injury) Status: Acute Reason for Consult Date of Consultation: 03/03/18 Reason for Consultation: DKA History of Present Illness: The patient is a 62 year old F, with past medical history listed below, who presented to [facility] on 03/03/2018 after being found by a neighbor and noted to be very lethargic. Reportedly 911 was called and patient was found confused, lethargic, nauseous with multiple bouts of emesis and very irregular behavior including defecating in the garbage instead of using the toilet. Patient had reportedly lived alone in the [facility], but was recently moved to her niece's house. On presentation to the emergency room, patient was noted to be tachycardic with a heart rate of 112 bpm and saturating 100% on room air. Laboratory workup showed hemoglobin of 12.4 with an anion gap of 43 and creatinine of 1.94. Glucose was noted to be 899. Chest x-ray and CT head did not show any acute findings. Patient was transferred to the intensive care unit for further monitoring. Shortly after arrival to the intensive care unit, patient's BMP showed a potassium of 2.3 with an elevation in bicarbonate to 6. Insulin drip was held secondary to profound hypokalemia. Consent was obtained and central line was placed by nurse practitioner. Patient tolerated the procedure well. Potassium is currently infusing and insulin drip is off. Blood sugars have been held during this time. Insulin drip will likely be re-initiated once potassium is improved. Patient is very confused and unable to provide any history at this time. Patient has a trash bag of medications, but reportedly does not take any of them. Hemoglobin A1c and MRSA screen is currently pending. No old data is available for comparison. Past Medical History Past Medical History (Chronic Problems): Chronic Problems GERD (gastroesophageal reflux disease) (Chronic) HLD (hyperlipidemia) (Chronic) HTN (hypertension) (Chronic) Diabetes mellitus, type II (Chronic) Allergies Unable to Assess Allergy (Verified 03/03/18 04:17) Home Medications: Ambulatory Orders Medication Instructions Recorded Acetaminophen [Tylenol Extra 500 mg PO Q6H PRN PRN 03/03/18 Strength] Albuterol Inhaler [Ventolin Hfa 2 puff INHALATION Q6H PRN PRN 03/03/18 (SP)] Atorvastatin Calcium 40 mg PO DAILY 03/03/18 Calcium Citrate 200 mg PO DAILY 03/03/18 Carvedilol 6.25 mg PO BID 03/03/18 Flavoxate HCl 100 mg PO TID PRN 03/03/18 Gabapentin [Neurontin] 600 mg PO TIDCM 03/03/18 Guaifenesin [Mucinex] 600 mg PO BID 03/03/18 Insulin Aspart [Novolog Flexpen] 03/03/18 Insulin Glargine,Hum.rec.anlog 100 unit SQ 03/03/18 [Lantus Solostar] Loperamide HCl [Loperamide] 2 mg PO 4X/DAY PRN PRN 03/03/18 Magnesium Oxide [Mag-Ox 400] 400 mg PO DAILY 03/03/18 Metformin HCl 500 mg PO BID 03/03/18 Methocarbamol [Robaxin] 500 mg PO TID PRN 03/03/18 Omeprazole 40 mg PO DAILY 03/03/18 Potassium Citrate [Potassium 10 meq PO DAILY 03/03/18 Citrate ER] Surgical History: - - Patient may possibly have had hysterectomy per discussion but again poor historian currently. Family confirms . 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 Paternal History Items: - - Patient possibly stating that there is a maternal and paternal family history of heart disease and diabetes. Review of Systems Unable to obtain accurate/complete ROS d/t: Confusion Objective: All chest x-rays were personally reviewed. This shows a possible right lower lobe infiltrate. CT scan of the head shows age-appropriate changes. - Physical Exam General: - - RASS -1. Appears older than stated age. Vocalizes intermittently. HEENT: Atraumatic, PERRLA, EOMI, - - Scleral icterus or injection noted. Exotropia noted of the left eye Oral: No Gingival or Mucosal Lesions/ Ulcerations, Dry Mucosa, - - Poor dentition Neck: Supple, No JVD, No Nodes, Trachea Midline Lungs: No rhonchi, No wheeze, No rales, Diminished, - - Symmetric expansion. No dullness to percussion. Occasional nonproductive cough noted Cardiovascular: Normal S1, Normal S2, No murmurs, No rub noted, No Gallop, Tachycardic Abdomen: Bowel Sounds Present, Soft, Non Tender, Non-Distended Extremities: No clubbing, No cyanosis, No edema, Capillary Refill Less than 3 Seconds Skin: No rashes, No breakdown Musculoskeletal: No Tenderness to Palpation of Joints or Extremities Lymphatic: No Cervical, Supraclavicular, or Inguinal Adenopathy Neurological: - - Not cooperative with exam. Only answers yes and no intermittently. Strength appears to be decreased globally without focal neurologic deficits. Psych/Mental Status: Flat Affect, Restless Vital Signs Temp Pulse Resp BP Pulse Ox 36.3 C L 117 H 10 L 123/53 H 97 03/03/18 04:17 03/03/18 07:25 03/03/18 07:25 03/03/18 07:25 03/03/18 08:50 Oxygen Delivery Method Room Air Weight: 48.807 kg Body Mass Index (BMI) 22.4 Laboratory Tests 03/03/18 03/03/18 03/03/18 04:18 04:39 04:48 WBC 15.2 H RBC 4.15 L Hgb 12.4 Hct 38.8 MCV 93.5 MCH 29.9 MCHC 32.0 RDW 13.3 RDW Differential 45.3 H Plt Count 326 MPV 13.2 H Immature Gran % (Auto) 0.300 Neut % (Auto) 89.8 H Lymph % (Auto) 4.6 L [place] % (Auto) 5.2 Eos % (Auto) 0.0 Baso % (Auto) 0.1 Absolute Neuts (auto) 13.6 H Absolute Lymphs (auto) 0.70 L Total Counted Not Reportable Differential Comment SCANNED PT INR APTT Sodium Potassium Chloride Carbon Dioxide Anion Gap BUN Creatinine Estim Creat Clear Calc Est GFR (MDRD) Af Amer Est GFR (MDRD) Non-Af BUN/Creatinine Ratio Glucose Hemoglobin A1c Calcium Phosphorus Magnesium Total Creatine Kinase Troponin I Urine Color Yellow Urine Clarity Clear Urine pH 6.0 Ur Specific [place] 1.015 Urine Protein 100 H Urine Glucose (UA) 1000 H Urine Ketones 150 H Urine Occult Blood 25 H Urine Nitrite Negative Urine Bilirubin Negative Urine Urobilinogen Normal Ur Leukocyte Esterase Negative Urine RBC 0 SEEN Urine WBC 0 SEEN Ur Squamous Epith Cells 0 SEEN Urine Bacteria 0 SEEN Urine Mucus 0 SEEN Urine Yeast RARE Acetone Level POC Glucose > 500 H* 03/03/18 03/03/18 03/03/18 04:48 04:48 04:48 WBC RBC Hgb Hct MCV MCH MCHC RDW RDW Differential Plt Count MPV Immature Gran % (Auto) Neut % (Auto) Lymph % (Auto) [place] % (Auto) Eos % (Auto) Baso % (Auto) Absolute Neuts (auto) Absolute Lymphs (auto) Total Counted Differential Comment PT INR APTT Sodium 136 Potassium 3.6 Chloride 88 L Carbon Dioxide 5.0 L* Anion Gap 43 H BUN 29 H Creatinine 1.94 H Estim Creat Clear Calc 23.48 Est GFR (MDRD) Af Amer 33 L Est GFR (MDRD) Non-Af 28 L BUN/Creatinine Ratio 14.9 Glucose 899 H* Hemoglobin A1c 14.1 H Calcium 9.0 Phosphorus 8.2 H Magnesium 3.8 H Total Creatine Kinase Troponin I < 0.015 Urine Color Urine Clarity Urine pH Ur Specific [place] Urine Protein Urine Glucose (UA) Urine Ketones Urine Occult Blood Urine Nitrite Urine Bilirubin Urine Urobilinogen Ur Leukocyte Esterase Urine RBC Urine WBC Ur Squamous Epith Cells Urine Bacteria Urine Mucus Urine Yeast Acetone Level MODERATE H POC Glucose 03/03/18 03/03/1818 04:48 05:09 05:55 WBC RBC Hgb Hct MCV MCH MCHC RDW RDW Differential Plt Count MPV Immature Gran % (Auto) Neut % (Auto) Lymph % (Auto) [place] % (Auto) Eos % (Auto) Baso % (Auto) Absolute Neuts (auto) Absolute Lymphs (auto) Total Counted Differential Comment PT INR APTT Sodium Potassium Chloride Carbon Dioxide Anion Gap BUN Creatinine Estim Creat Clear Calc Est GFR (MDRD) Af Amer Est GFR (MDRD) Non-Af BUN/Creatinine Ratio Glucose Hemoglobin A1c Calcium Phosphorus Magnesium Total Creatine Kinase 123 Troponin I Urine Color Urine Clarity Urine pH Ur Specific [place] Urine Protein Urine Glucose (UA) Urine Ketones Urine Occult Blood Urine Nitrite Urine Bilirubin Urine Urobilinogen Ur Leukocyte Esterase Urine RBC Urine WBC Ur Squamous Epith Cells Urine Bacteria Urine Mucus Urine Yeast Acetone Level POC Glucose > 500 H* > 500 H* 03/03/18 03/03/18 03/03/18 06:18 06:54 08:15 WBC RBC Hgb Hct MCV MCH MCHC RDW RDW Differential Plt Count MPV Immature Gran % (Auto) Neut % (Auto) Lymph % (Auto) [place] % (Auto) Eos % (Auto) Baso % (Auto) Absolute Neuts (auto) Absolute Lymphs (auto) Total Counted Differential Comment PT INR APTT Sodium 140 Potassium 2.3 L* Chloride 100 Carbon Dioxide 6.0 L* Anion Gap 34 H BUN 28 H Creatinine 1.88 H Estim Creat Clear Calc 23.60 Est GFR (MDRD) Af Amer 35 L Est GFR (MDRD) Non-Af 29 L BUN/Creatinine Ratio 14.9 Glucose 720 H* Hemoglobin A1c Calcium 8.7 Phosphorus Magnesium Total Creatine Kinase Troponin I Urine Color Urine Clarity Urine pH Ur Specific [place] Urine Protein Urine Glucose (UA) Urine Ketones Urine Occult Blood Urine Nitrite Urine Bilirubin Urine Urobilinogen Ur Leukocyte Esterase Urine RBC Urine WBC Ur Squamous Epith Cells Urine Bacteria Urine Mucus Urine Yeast Acetone Level POC Glucose > 500 H* > 500 H* 03/03/18 08:50 WBC RBC Hgb Hct MCV MCH MCHC RDW RDW Differential Plt Count MPV Immature Gran % (Auto) Neut % (Auto) Lymph % (Auto) [place] % (Auto) Eos % (Auto) Baso % (Auto) Absolute Neuts (auto) Absolute Lymphs (auto) Total Counted Differential Comment PT 13.3 INR 1.0 APTT 21.8 L Sodium Potassium Chloride Carbon Dioxide Anion Gap BUN Creatinine Estim Creat Clear Calc Est GFR (MDRD) Af Amer Est GFR (MDRD) Non-Af BUN/Creatinine Ratio Glucose Hemoglobin A1c Calcium Phosphorus Magnesium Total Creatine Kinase Troponin I Urine Color Urine Clarity Urine pH Ur Specific [place] Urine Protein Urine Glucose (UA) Urine Ketones Urine Occult Blood Urine Nitrite Urine Bilirubin Urine Urobilinogen Ur Leukocyte Esterase Urine RBC Urine WBC Ur Squamous Epith Cells Urine Bacteria Urine Mucus Urine Yeast Acetone Level POC Glucose Clinical Impression(s) from Imaging Studies Chest X-Ray 03/03/18 04:35 IMPRESSION: No evidence for acute cardiopulmonary pathology. Electronically Signed: Sawyer Byrne MD at 5:36 EDT , Service support , Brain CT 03/03/18 05:13 IMPRESSION: Chronic involutional changes of the brain. No demonstrated acute intracranial process. Electronically Signed: Sawyer Byrne MD at 6:20 EDT , Service support , Chest X-Ray 03/03/18 10:10 IMPRESSION: Right internal jugular central venous catheter is seen with the tip in the SVC. No pneumothorax. Electronically Signed: Keven Contreras DO at 10:48 EDT Tel , Service support , Assessment/Plan RECOMMENDATIONS: 1. Aggressive potassium repletion 2. Reinitiate insulin drip per protocol once potassium above 3 3. Initiate delirium protocol 4. Avoid contrast and nephrotoxic medications 5. Hold all baseline medications until further information available 6. Probable need for jail placement at discharge IMPRESSIONS: 1. DKA with severe metabolic acidosis secondary to possible pneumonia Patient with reported type 2 diabetes mellitus and profound blood sugars on presentation. Drip has been held secondary to severe hypokalemia. Patient will continue with DKA per protocol once potassium has been repleted moving forward. Patient appears to be significantly volume depleted. Will repeat chest x-ray tomorrow to see if infiltrate in the right lower lobe. Cannot exclude an element of aspiration pneumonia given patient's current mental status. 2. Hypokalemia No EKG changes are noted at this time, so calcium not given. Patient did present with profound acidemia and a low normal potassium. Patient with significant drop in potassium following initiation of insulin drip. This has been held for now. Clinical suspicion for 2-300 mEq of potassium depleted. Central line has been placed. Aggressive repletion has been ordered. Continue with intermittent BMPs for evaluation. 3. Suspected acute kidney injury No baseline information is available at this time as the patient's baseline creatinine. Patient does have an elevated creatinine that appears to be responding to some fluids. Will attempt to obtain old information. Monitor urine output. Could investigate with a FENa if not improving after fluid hydration. 4. Hypertension/hyperlipidemia/GERD/poor background information Complicates care, management, recovery and prognosis. Patient with multiple medications, but appears to be nonadherent. Will hold on all medications for now and reinitiate in a stepwise fashion. 5. CODE STATUS Patient currently confused. Full CODE STATUS has been requested by family. TIME: 37 minutes of critical care time spent spent addressing patient's DKA, hypokalemia, acute kidney injury, review of all data and collaboration with care team. (9 AM to 11 AM)
--- NOTE | 2018-03-03 10:57 | PCM.OP.BLANK ---
Operative Report Date of Procedure: 03/03/18 - Triple-lumen insertion Central line placement procedure note Indication: IV access/hemodynamic instability Procedure: A time-out was completed to verify correct patient, indication, medication allergies, procedure, coagulation studies, informed consent signed, and equipment needed. The patient was placed in the supine position for a central line placement to the rt IJ vein. The patients rt was prepped using chlorhexidine and a full body sterile drape was applied. 1% lidocaine was used to anesthetize the surrounding skin. A 7fr 16 cm blue Caterina triple lumen catheter introduced into the internal jugular vein using the modified Seldinger technique with the assistance of ultrasound. The catheter was threaded smoothly over the guidewire, the guidewire was removed easily, nonpulsatile blood returned. All ports were aspirated of air and flushed with sterile saline. The catheter was sutured in place and covered with an occlusive dressing impregnated with chlorhexidine. Post-procedure: The patient tolerated the procedure well. Vital signs remained stable. EBL 3 cc. No complications. Chest X Ray ordered to confirm tip placement and the absence of pneumothorax. Code Visit Procedures: [id number] Insert Non-tunnel CV Cath
[2018-03-03 11:40] LABS: Bedside Glucose > 500 mg/dL (70-110)
[2018-03-03 11:55] LABS: M R Staph aureus DNA By PCR Negative (Negative); Probe Check PASS; Specimen Processing Control PASS
[2018-03-03 12:15] LABS: Allen Test POS; Base Excess -26 mmol/L (-2 to +2); Bicarbonate 4.1 mmol/L (22-26); Blood Gas Specimen Type ART; O2 Delivery Device Room Air; PO2 110 mmHG (75-100); SITE L Radial; SO2 96 % (95-99); Time Given 830; Total Carbon Dioxide < 5 mmol/L; pCO2 13.8 mmHg (35-45); pH 7.08 (7.35-7.45)
[2018-03-03 12:30] LABS: Blood Gas Specimen Type VEN; O2 Delivery Device Room Air; SITE OTHER; Time Given 605; VBG BASE EXCESS -28 mmol/L (-1.0-3.5); VBG Oxygen Content < 5 mmol/L (23-33); VBG PO2 87 mmHg (25-40); VBG SO2 91 % (50-70); VBG pCO2 12.1 mmHg (41-51); VBG pH 7.03 (7.32-7.42)
[2018-03-03 12:53] LABS: Anion Gap 23 (5-15); BUN 26 mg/dL (7-18); BUN/Creat Ratio 18.7 RATIO (10-20); Calcium,Total 7.3 mg/dL (8.5-10.1); Chloride 114 mmol/L (98-107); Creatinine, Serum 1.39 mg/dL (0.55-1.02); EST Glomerular Filtration Rate 41 mL/min (>60); Est Glom Filt Rate - Afr Amer 49 mL/min (>60); Estimated Creatinine Clearance 31.92 ml/min; Glucose 478 mg/dL (74-106); Potassium 3.6 mmol/L (3.5-5.1); Sodium Level 144 mmol/L (136-145)
[2018-03-03 13:00] LABS: Bedside Glucose 408 mg/dL (70-110)
--- NOTE | 2018-03-03 13:31 | CASEMGMT ---
RN CM Assessment Link. DC Plan: probable SNF. SW referral for home/dc planning. Tasia BOYCEN RN ACM
[2018-03-03 15:00] LABS: Bedside Glucose 348 mg/dL (70-110)
[2018-03-03 15:00] LABS: Bedside Glucose 385 mg/dL (70-110)
[2018-03-03] MEDS: Heparin Injection (Vial) 5,000 UNIT/ML VIAL 5000 UNIT SC ×2 (15:15→21:01)
[2018-03-03 16:16] LABS: Bedside Glucose 288 mg/dL (70-110)
--- NOTE | 2018-03-03 16:17 | NURSING ---
Home medications that patient brought were used to completed patient's home medication list at this time. There were no instructions attached to insulin pens. This RN called [facility] in [place], [place], where patient refills medications, and spoke with Hope in the pharmacy. Current orders for both lantus and novolog obtained and entered into home medication list.
[2018-03-03 16:21] LABS: Anion Gap 16 (5-15); BUN 23 mg/dL (7-18); BUN/Creat Ratio 16.4 RATIO (10-20); Calcium,Total 7.3 mg/dL (8.5-10.1); Chloride 123 mmol/L (98-107); EST Glomerular Filtration Rate 40 mL/min (>60); Est Glom Filt Rate - Afr Amer 49 mL/min (>60); Estimated Creatinine Clearance 31.69 ml/min; Glucose 313 mg/dL (74-106); Potassium 3.2 mmol/L (3.5-5.1); Sodium Level 151 mmol/L (136-145)
[2018-03-03] MEDS: Dext 5%-0.45% NS 1,000 ML 150 ML IV (17:07)
[2018-03-03 17:16] LABS: Bedside Glucose 235 mg/dL (70-110)
[2018-03-03 18:16] LABS: Bedside Glucose 258 mg/dL (70-110)
[2018-03-03 19:11] LABS: Bedside Glucose 265 mg/dL (70-110)
[2018-03-03 20:32] LABS: Anion Gap 10 (5-15); BUN 21 mg/dL (7-18); BUN/Creat Ratio 15.4 RATIO (10-20); Calcium,Total 7.3 mg/dL (8.5-10.1); Chloride 125 mmol/L (98-107); Creatinine, Serum 1.36 mg/dL (0.55-1.02); EST Glomerular Filtration Rate 42 mL/min (>60); Est Glom Filt Rate - Afr Amer 50 mL/min (>60); Estimated Creatinine Clearance 32.62 ml/min; Glucose 278 mg/dL (74-106); Sodium Level 150 mmol/L (136-145)
[2018-03-03 21:11] LABS: Bedside Glucose 264 mg/dL (70-110)
[2018-03-03 21:11] LABS: Bedside Glucose 231 mg/dL (70-110)
[2018-03-03 23:11] LABS: Bedside Glucose 235 mg/dL (70-110)
[2018-03-04] VITALS (20 sets, daily range): BP systolic 100–161; BP diastolic 45–85; PULSE 88–104; RESP 13–20; TEMP 37–37.7; O2SAT 94–99
[2018-03-04] MEDS: Dext 5%-0.45% NS 1,000 ML 150 ML IV
[2018-03-04] MEDS: 0.9% NaCl Peripheral Flush Adult/Peds IV ×2 (00:03→09:14)
[2018-03-04 00:11] LABS: Bedside Glucose 174 mg/dL (70-110)
[2018-03-04 00:34] LABS: Anion Gap 8 (5-15); BUN 20 mg/dL (7-18); BUN/Creat Ratio 15.3 RATIO (10-20); Calcium,Total 7.1 mg/dL (8.5-10.1); Chloride 127 mmol/L (98-107); Creatinine, Serum 1.31 mg/dL (0.55-1.02); EST Glomerular Filtration Rate 44 mL/min (>60); Est Glom Filt Rate - Afr Amer 53 mL/min (>60); Estimated Creatinine Clearance 33.87 ml/min; Glucose 194 mg/dL (74-106); Potassium 3.3 mmol/L (3.5-5.1); Sodium Level 150 mmol/L (136-145)
[2018-03-04 02:21] LABS: Bedside Glucose 164 mg/dL (70-110)
[2018-03-04 03:31] LABS: Bedside Glucose 137 mg/dL (70-110)
[2018-03-04 03:31] LABS: Bedside Glucose 167 mg/dL (70-110)
[2018-03-04 04:31] LABS: Bedside Glucose 124 mg/dL (70-110)
[2018-03-04 04:32] LABS: Hematocrit 30.1 % (37-47); Hemoglobin 10.6 g/dl (12.0-15.0); Mean Corp Hgb Conc 35.2 g/gl (32-36); Mean Corpuscular Hgb 30.8 pg (27.0-32.0); Mean Corpuscular Volume 87.5 fL (81-99); Mean Platelet Vol. 11.3 fl (6.2-12.0); Platelet Count 229 K/mm3 (150-450); RBC Distribution Width CV 12.7 % (11.6-14.6); RBC Distribution Width SD 39.1 fl (35.1-43.9); Red Blood Count 3.44 M/mm3 (4.2-5.4); Scan Indicated on CBC? Y/N NO; White Blood Count 11.4 K/mm3 (4.4-11.0)
[2018-03-04 04:45] LABS: Anion Gap 9 (5-15); BUN 18 mg/dL (7-18); BUN/Creat Ratio 14.5 RATIO (10-20); Calcium,Total 7.2 mg/dL (8.5-10.1); Chloride 126 mmol/L (98-107); Creatinine, Serum 1.24 mg/dL (0.55-1.02); EST Glomerular Filtration Rate 46 mL/min (>60); Est Glom Filt Rate - Afr Amer 56 mL/min (>60); Estimated Creatinine Clearance 35.78 ml/min; Glucose 115 mg/dL (74-106); Potassium 3.1 mmol/L (3.5-5.1); Sodium Level 151 mmol/L (136-145)
--- NOTE | 2018-03-04 05:40 | RAD_ITS ---
STUDY: X-RAY CHEST REASON FOR EXAM: Female, 62 years old. Fever, shortness of breath TECHNIQUE: Single AP portable view of the chest. COMPARISON: 03/03/2018 FINDINGS: Right internal jugular central venous catheter is seen within the SVC. Cardiac monitoring leads overlie the chest. The lungs are clear and expanded. There is no demonstrated pleural abnormality. Normal size heart. Normal mediastinum and moralse. Normal visualized pulmonary arteries. There is atherosclerotic calcification of the aortic arch with tortuosity. Normal visualized thoracic spine. Normal visualized ribs, clavicles, and shoulders. Cholecystectomy clips are seen in the right upper quadrant of the abdomen. RAD/Chest 1 View (Portable) IMPRESSION: No focal consolidation. Electronically Signed: Keven Contreras DO at 9:33 EDT Tel , Service support ,
[2018-03-04] MEDS: Heparin Injection (Vial) 5,000 UNIT/ML VIAL 5000 UNIT SC ×3 (06:30→22:10)
[2018-03-04 06:45] LABS: Bedside Glucose 87 mg/dL (70-110)
--- NOTE | 2018-03-04 07:06 | PCM.PN.INT ---
Subjective: Patient did okay overnight. Patient's gap has been closed ?3 BMPs, but insulin drip was continued secondary to lack of p.o. intake. Patient is appropriate this morning and answering questions. Patient is denying any cough, chest pain or shortness of breath. Patient is unable to tell me her diabetic regimen. Objective: Chest x-ray completed this morning shows no evolving infiltrate in the right lower lobe. General: Alert, Cooperative, No apparent distress, - - Speaking in full sentences. Appears older than stated age. HEENT: Atraumatic, PERRLA, EOMI, Normocephalic, - - No scleral icterus or injection noted. Glasses in place. Oral: Moist Mucosa, No Gingival or Mucosal Lesions/ Ulcerations Neck: Supple, No JVD, No Nodes, Trachea Midline Lungs: No rhonchi, No rales, Diminished, Wheezes - Sporadic Cardiovascular: Regular rate, Regular Rhythm, Normal S1, Normal S2, No murmurs, No rub noted, No Gallop Abdomen: Bowel Sounds Present, Soft, Non Tender, Non-Distended Extremities: No clubbing, No cyanosis, No edema, Capillary Refill Less than 3 Seconds Skin: No rashes, No breakdown Musculoskeletal: No Tenderness to Palpation of Joints or Extremities Lymphatic: No Cervical, Supraclavicular, or Inguinal Adenopathy Neurological: Cranial nerves II-XII grossly intact, Neuro grossly intact, Motor Exam 5/5 strength throughout Psych/Mental Status: Normal Affect, Appropriate Vital Signs Temp Pulse Resp BP Pulse Ox 37.2 C 104 H 18 105/51 L 94 03/04/18 05:00 03/04/18 05:00 03/04/18 05:00 03/04/18 05:00 03/04/18 05:00 Oxygen Delivery Method Room Air Weight: 51.9 kg Body Mass Index (BMI) 22.4 Finger Stick Blood Glucose 258 Intake and Output for Last 24 Hours 03/02/18 03/03/18 03/04/18 23:59 23:59 23:59 Intake Total 3992 / 3992 1930.8 / 1930.8 Output Total 1675 / 1675 1080 / 1080 Balance 2317 / 2317 850.8 / 850.8 Labs (Last 48 Hours) 03/03/18 03/03/18 03/03/18 06:54 07:50 07:56 WBC RBC Hgb Hct MCV MCH MCHC RDW RDW Differential Plt Count MPV PT INR APTT Specimen Type Sample Site pH Bicarbonate Actual POC Total CO2 Base Excess O2 Saturation ABG pCO2 ABG pO2 Eddi Test O2 Delivery Device Blood Gas Notified Whom Blood Gas Notified Time Sodium Potassium Chloride Carbon Dioxide Anion Gap BUN Creatinine Estim Creat Clear Calc Est GFR (MDRD) Af Amer Est GFR (MDRD) Non-Af BUN/Creatinine Ratio Glucose Calcium MRSA (PCR) Negative POC Glucose > 500 H* > 500 H* 03/03/18 03/03/18 03/03/18 08:15 08:39 08:50 WBC RBC Hgb Hct MCV MCH MCHC RDW RDW Differential Plt Count MPV PT 13.3 INR 1.0 APTT 21.8 L Specimen Type ART Sample Site L Radial pH 7.08 L* Bicarbonate Actual 4.1 L POC Total CO2 < 5 Base Excess -26 L O2 Saturation 96 ABG pCO2 13.8 L* ABG pO2 110 H Eddi Test POS O2 Delivery Device Room Air Blood Gas Notified Whom ICU MD Blood Gas Notified Time 830 Sodium 140 Potassium 2.3 L* Chloride 100 Carbon Dioxide 6.0 L* Anion Gap 34 H BUN 28 H Creatinine 1.88 H Estim Creat Clear Calc 23.60 Est GFR (MDRD) Af Amer 35 L Est GFR (MDRD) Non-Af 29 L BUN/Creatinine Ratio 14.9 Glucose 720 H* Calcium 8.7 MRSA (PCR) POC Glucose 03/03/18 03/03/18 03/03/18 12:25 12:59 13:56 WBC RBC Hgb Hct MCV MCH MCHC RDW RDW Differential Plt Count MPV PT INR APTT Specimen Type Sample Site pH Bicarbonate Actual POC Total CO2 Base Excess O2 Saturation ABG pCO2 ABG pO2 Eddi Test O2 Delivery Device Blood Gas Notified Whom Blood Gas Notified Time Sodium 144 Potassium 3.6 Chloride 114 H Carbon Dioxide 7.0 L* Anion Gap 23 H BUN 26 H Creatinine 1.39 H Estim Creat Clear Calc 31.92 Est GFR (MDRD) Af Amer 49 L Est GFR (MDRD) Non-Af 41 L BUN/Creatinine Ratio 18.7 Glucose 478 H* Calcium 7.3 L MRSA (PCR) POC Glucose 408 H 385 H 03/03/18 03/03/18 03/03/18 14:56 16:00 16:02 WBC RBC Hgb Hct MCV MCH MCHC RDW RDW Differential Plt Count MPV PT INR APTT Specimen Type Sample Site pH Bicarbonate Actual POC Total CO2 Base Excess O2 Saturation ABG pCO2 ABG pO2 Eddi Test O2 Delivery Device Blood Gas Notified Whom Blood Gas Notified Time Sodium 151 H Potassium 3.2 L Chloride 123 H Carbon Dioxide 12.0 L Anion Gap 16 H BUN 23 H Creatinine 1.40 H Estim Creat Clear Calc 31.69 Est GFR (MDRD) Af Amer 49 L Est GFR (MDRD) Non-Af 40 L BUN/Creatinine Ratio 16.4 Glucose 313 H Calcium 7.3 L MRSA (PCR) POC Glucose 348 H 288 H 03/03/18 03/03/18 03/03/18 17:04 18:07 19:00 WBC RBC Hgb Hct MCV MCH MCHC RDW RDW Differential Plt Count MPV PT INR APTT Specimen Type Sample Site pH Bicarbonate Actual POC Total CO2 Base Excess O2 Saturation ABG pCO2 ABG pO2 Edid Test O2 Delivery Device Blood Gas Notified Whom Blood Gas Notified Time Sodium Potassium Chloride Carbon Dioxide Anion Gap BUN Creatinine Estim Creat Clear Calc Est GFR (MDRD) Af Amer Est GFR (MDRD) Non-Af BUN/Creatinine Ratio Glucose Calcium MRSA (PCR) POC Glucose 235 H 258 H 265 H 03/03/18 03/03/18 03/03/18 19:59 20:03 21:05 WBC RBC Hgb Hct MCV MCH MCHC RDW RDW Differential Plt Count MPV PT INR APTT Specimen Type Sample Site pH Bicarbonate Actual POC Total CO2 Base Excess O2 Saturation ABG pCO2 ABG pO2 Eddi Test O2 Delivery Device Blood Gas Notified Whom Blood Gas Notified Time Sodium 150 H Potassium 4.0 Chloride 125 H Carbon Dioxide 15.0 L Anion Gap 10 BUN 21 H Creatinine 1.36 H Estim Creat Clear Calc 32.62 Est GFR (MDRD) Af Amer 50 L Est GFR (MDRD) Non-Af 42 L BUN/Creatinine Ratio 15.4 Glucose 278 H Calcium 7.3 L MRSA (PCR) POC Glucose 264 H 231 H 03/03/18 03/03/18 03/04/18 23:04 23:57 00:00 WBC RBC Hgb Hct MCV MCH MCHC RDW RDW Differential Plt Count MPV PT INR APTT Specimen Type Sample Site pH Bicarbonate Actual POC Total CO2 Base Excess O2 Saturation ABG pCO2 ABG pO2 Eddi Test O2 Delivery Device Blood Gas Notified Whom Blood Gas Notified Time Sodium 150 H Potassium 3.3 L Chloride 127 H* Carbon Dioxide 15.0 L Anion Gap 8 BUN 20 H Creatinine 1.31 H Estim Creat Clear Calc 33.87 Est GFR (MDRD) Af Amer 53 L Est GFR (MDRD) Non-Af 44 L BUN/Creatinine Ratio 15.3 Glucose 194 H Calcium 7.1 L MRSA (PCR) POC Glucose 235 H 174 H 03/04/18 03/04/18 03/04/18 01:01 02:20 03:28 WBC RBC Hgb Hct MCV MCH MCHC RDW RDW Differential Plt Count MPV PT INR APTT Specimen Type Sample Site pH Bicarbonate Actual POC Total CO2 Base Excess O2 Saturation ABG pCO2 ABG pO2 Eddi Test O2 Delivery Device Blood Gas Notified Whom Blood Gas Notified Time Sodium Potassium Chloride Carbon Dioxide Anion Gap BUN Creatinine Estim Creat Clear Calc Est GFR (MDRD) Af Amer Est GFR (MDRD) Non-Af BUN/Creatinine Ratio Glucose Calcium MRSA (PCR) POC Glucose 164 H 167 H 137 H 03/04/18 03/04/18 03/04/18 04:20 04:25 04:25 WBC 11.4 H RBC 3.44 L Hgb 10.6 L Hct 30.1 L MCV 87.5 MCH 30.8 MCHC 35.2 RDW 12.7 RDW Differential 39.1 Plt Count 229 MPV 11.3 PT INR APTT Specimen Type Sample Site pH Bicarbonate Actual POC Total CO2 Base Excess O2 Saturation ABG pCO2 ABG pO2 Eddi Test O2 Delivery Device Blood Gas Notified Whom Blood Gas Notified Time Sodium 151 H Potassium 3.1 L Chloride 126 H Carbon Dioxide 16.0 L Anion Gap 9 BUN 18 Creatinine 1.24 H Estim Creat Clear Calc 35.78 Est GFR (MDRD) Af Amer 56 L Est GFR (MDRD) Non-Af 46 L BUN/Creatinine Ratio 14.5 Glucose 115 H Calcium 7.2 L MRSA (PCR) POC Glucose 124 H 03/04/18 06:27 WBC RBC Hgb Hct MCV MCH MCHC RDW RDW Differential Plt Count MPV PT INR APTT Specimen Type Sample Site pH Bicarbonate Actual POC Total CO2 Base Excess O2 Saturation ABG pCO2 ABG pO2 Eddi Test O2 Delivery Device Blood Gas Notified Whom Blood Gas Notified Time Sodium Potassium Chloride Carbon Dioxide Anion Gap BUN Creatinine Estim Creat Clear Calc Est GFR (MDRD) Af Amer Est GFR (MDRD) Non-Af BUN/Creatinine Ratio Glucose Calcium MRSA (PCR) POC Glucose 87 Medical Necessity - Tobacco Use Smoking Status: Former smoker Tobacco Use: Non-smoker Assessment/Plan All Active Problems DKA (diabetic ketoacidoses) (Acute) CINDY (acute kidney injury) (Acute) RECOMMENDATIONS: 1. Continue potassium repletion as indicated 2. Transition off of insulin drip 3. Continue delirium protocol 4. Discontinue IV fluids with drip, encourage p.o. free water 5. Hold all baseline medications until further information available 6. Probable need for prison placement at discharge 7. Likely okay to leave the intensive care unit if able to tolerate breakfast IMPRESSIONS: 1. DKA with severe metabolic acidosis secondary to possible pneumonia Patient has responded well to DKA protocol. Patient is currently having hypernatremia and hyperchloremia secondary to resuscitation. Likely okay to discontinue IV fluids with drip. Increase p.o. free water would be appropriate. Patient is unable to give home regimen, so will give Lantus 15 units twice daily with first dose now. Initiate p.o. intake. 2. Hypokalemia No EKG changes are noted at this time, so calcium not given. Patient has received significant amounts of potassium over the last 24 hours. Patient's gap is currently closed. Patient will be given IV repletion to avoid any nausea limiting p.o. intake. 3. Suspected acute kidney injury Continues to improve. No baseline information is available at this time as the patient's baseline creatinine. Patient does have an elevated creatinine that appears to be responding to some fluids. Will attempt to obtain old information. Monitor urine output. Increase free water intake. Urine output appears appropriate. 4. Hypertension/hyperlipidemia/GERD/poor background information Complicates care, management, recovery and prognosis. Patient with multiple medications, but appears to be nonadherent. Hold all medications for now and reinitiate in a stepwise fashion. 5. CODE STATUS Patient currently confused. Full CODE STATUS has been requested by family. Code Visit Inpatient E&M: 36135 Subs Hosp L3
[2018-03-04 08:06] LABS: Bedside Glucose 73 mg/dL (70-110)
[2018-03-04 08:41] LABS: Bedside Glucose 90 mg/dL (70-110)
--- NOTE | 2018-03-04 09:09 | PCM.PN.HOSP ---
Subjective: Patient seen and examined. She still confused. Still on the insulin drip. Anion gap is closed. She is able to answer questions and denies any fever or chills, any cough or chest pain, shortness of breath, abdominal pain, any diarrhea vomiting. She still however quite lethargic and confused. Labs and vitals reviewed. 12 point Review of systems otherwise negative. Vitals/I&O's: Vital Signs Temp Pulse Resp BP Pulse Ox 99.3 F H 97 13 137/55 H 95 03/04/18 06:00 03/04/18 06:00 03/04/18 06:00 03/04/18 06:00 03/04/18 08:01 Oxygen Delivery Method Room Air Weight: 114 lb 6.719 oz Body Mass Index (BMI) 22.4 Finger Stick Blood Glucose 258 Intake and Output for Last 24 Hours 03/02/18 03/03/18 03/04/18 23:59 23:59 23:59 Intake Total 3992 / 3992 1930.8 / 1930.8 Output Total 1675 / 1675 1080 / 1080 Balance 2317 / 2317 850.8 / 850.8 General: Alert, Cooperative, No apparent distress, Confused, Lethargic HEENT: Atraumatic, PERRLA, EOMI, Normocephalic Oral: Dry Mucosa Neck: Supple, No JVD, Negative Carotid Bruits Lungs: Clear to auscultation, Normal air movement, No rhonchi, No wheeze Cardiovascular: Regular rate, Regular Rhythm, Normal S1, Normal S2, No murmurs Abdomen: Bowel Sounds Present, Soft, Non Tender, Non-Distended, No Hepato-splenomegaly Extremities: No clubbing, No cyanosis, No edema, Capillary Refill Less than 3 Seconds Skin: No rashes, No breakdown Musculoskeletal: No Tenderness to Palpation of Joints or Extremities Lymphatic: No Cervical, Supraclavicular, or Inguinal Adenopathy Neurological: Cranial nerves II-XII grossly intact, Neuro grossly intact Psych/Mental Status: - - confused Laboratory Results 03/03/18 07:50: MRSA (PCR) Negative 03/03/18 07:56: POC Glucose > 500 H* 03/03/18 08:39: Specimen Type ART, Sample Site L Radial, pH 7.08 L*, Bicarbonate Actual 4.1 L, POC Total CO2 < 5, Base Excess -26 L, O2 Saturation 96, ABG pCO2 13.8 L*, ABG pO2 110 H, Eddi Test POS, O2 Delivery Device Room Air, Blood Gas Notified Whom ICU , Blood Gas Notified Time 830 03/03/18 08:50: PT 13.3, INR 1.0, APTT 21.8 L 03/03/18 12:25: Sodium 144, Potassium 3.6, Chloride 114 H, Carbon Dioxide 7.0 L*, Anion Gap 23 H, BUN 26 H, Creatinine 1.39 H, Estim Creat Clear Calc 31.92, Est GFR (MDRD) Af Amer 49 L, Est GFR (MDRD) Non-Af 41 L, BUN/Creatinine Ratio 18.7, Glucose 478 H*, Calcium 7.3 L 03/03/18 12:59: POC Glucose 408 H 03/03/18 13:56: POC Glucose 385 H 03/03/18 14:56: POC Glucose 348 H 03/03/18 16:00: Sodium 151 H, Potassium 3.2 L, Chloride 123 H, Carbon Dioxide 12.0 L, Anion Gap 16 H, BUN 23 H, Creatinine 1.40 H, Estim Creat Clear Calc 31.69, Est GFR (MDRD) Af Amer 49 L, Est GFR (MDRD) Non-Af 40 L, BUN/Creatinine Ratio 16.4, Glucose 313 H, Calcium 7.3 L 03/03/18 16:02: POC Glucose 288 H 03/03/18 17:04: POC Glucose 235 H 03/03/18 18:07: POC Glucose 258 H 03/03/18 19:00: POC Glucose 265 H 03/03/18 19:59: POC Glucose 264 H 03/03/18 20:03: Sodium 150 H, Potassium 4.0, Chloride 125 H, Carbon Dioxide 15.0 L, Anion Gap 10, BUN 21 H, Creatinine 1.36 H, Estim Creat Clear Calc 32.62, Est GFR (MDRD) Af Amer 50 L, Est GFR (MDRD) Non-Af 42 L, BUN/Creatinine Ratio 15.4, Glucose 278 H, Calcium 7.3 L 03/03/18 21:05: POC Glucose 231 H 03/03/18 23:04: POC Glucose 235 H 03/03/18 23:57: POC Glucose 174 H 03/04/18 00:00: Sodium 150 H, Potassium 3.3 L, Chloride 127 H*, Carbon Dioxide 15.0 L, Anion Gap 8, BUN 20 H, Creatinine 1.31 H, Estim Creat Clear Calc 33.87, Est GFR (MDRD) Af Amer 53 L, Est GFR (MDRD) Non-Af 44 L, BUN/Creatinine Ratio 15.3, Glucose 194 H, Calcium 7.1 L 03/04/18 01:01: POC Glucose 164 H 03/04/18 02:20: POC Glucose 167 H 03/04/18 03:28: POC Glucose 137 H 03/04/18 04:20: POC Glucose 124 H 03/04/18 04:25: Sodium 151 H, Potassium 3.1 L, Chloride 126 H, Carbon Dioxide 16.0 L, Anion Gap 9, BUN 18, Creatinine 1.24 H, Estim Creat Clear Calc 35.78, Est GFR (MDRD) Af Amer 56 L, Est GFR (MDRD) Non-Af 46 L, BUN/Creatinine Ratio 14.5, Glucose 115 H, Calcium 7.2 L 03/04/18 04:25: WBC 11.4 H, RBC 3.44 L, Hgb 10.6 L, Hct 30.1 L, MCV 87.5, MCH 30.8, MCHC 35.2, RDW 12.7, RDW Differential 39.1, Plt Count 229, MPV 11.3 03/04/18 06:27: POC Glucose 87 03/04/18 07:46: POC Glucose 73 03/04/18 08:36: POC Glucose 90 Current Medications Acetaminophen (Tylenol) 650 mg RECTAL Q4H PRN PRN PRN Reason: fever, pain Al Hydroxide/Mg Hydroxide (Mylanta Ii) 30 ml PO Q6H PRN PRN PRN Reason: Gastric burning Dextrose (D50w Syringe) 0 gm IV X1 PRN; Protocol PRN Reason: HYPOGLYCEMIA Heparin Sodium (Porcine) (Heparin Na) 5,000 unit SC Q8 BUFFY Last Admin: 03/04/18 06:30 Dose: 5,000 unit Sodium Chloride () 1,000 mls @ 999 mls/hr IV .Q1H1M ONE Last Admin: 03/03/18 04:54 Dose: 999 mls/hr Insulin Human Lispro 100 unit/ (Sodium Chloride) 100 mls @ 5.23 mls/hr IV .Q19H8M BUFFY; 0.1 UNITS/KG/HR PRN Reason: Protocol Last Admin: 03/04/18 06:31 Dose: Not Given Pantoprazole Sodium 40 mg/ (Sodium Chloride) 110 mls @ 330 mls/hr IV Q12 BUFFY Last Admin: 03/03/18 21:00 Dose: 330 mls/hr Sodium Chloride () 250 mls @ 15 mls/hr IV .[id number] PRN PRN Reason: SALINE FLUSH Potassium Chloride/Dextrose/Sod Cl (Kcl 20meq In D5.45ns 1000ml) 1,000 mls @ 125 mls/hr IV .Q8H BUFFY Last Admin: 03/04/18 01:17 Dose: 125 mls/hr Insulin Glargine (Lantus (Bkc)) 15 units SC BID BUFFY Last Admin: 03/04/18 07:47 Dose: 15 u Magnesium Hydroxide (Milk Of Magnesia) 30 ml PO DAILY PRN PRN PRN Reason: Constipation Metoprolol Tartrate (Lopressor (Beta Daisy)) 5 mg IV Q6H PRN PRN Reason: SBP > 160, hold for HR < 60 Ondansetron HCl (Zofran) 4 mg IV Q8H PRN PRN PRN Reason: NAUSEA Last Admin: 03/03/18 09:24 Dose: 4 mg Promethazine HCl (Phenergan) 12.5 mg IV Q6H PRN PRN PRN Reason: NAUSEA/VOMITING Sodium Chloride () 5 - 30 ml IV UD PRN PRN Reason: SALINE FLUSH Last Admin: 03/04/18 00:03 Dose: 10 ml Medical Necessity - Tobacco Use Smoking Status: Former smoker Tobacco Use: Non-smoker Assessment/Plan All Active Problems DKA (diabetic ketoacidoses) (Acute) CINDY (acute kidney injury) (Acute) 1. DKA in a known diabetic likely due to noncompliance still remains very lethargic anion gap has closed; remains on insulin drip bicarb up to 16 today; anion gap is 9 plan is to be switched to lantus today, then insulin drip will be stopped A1C was ~ 14 podiatric technician on board 2. Hypokalemia resolving. K today is 3.1 replace and monitor 3. Acute metabolic encephalopathy due to DKA still appears confused and lethargic management as per 1. 4. CINDY due to dehydration Cr was 1.94 on admission, now down to 1.24 will monitor 5. Hypertension: BP meds on hold o/a of severe encephalopathy. On carvedilol at home. BP has been quite controlled. on IV lopressor prn 6. Hyperlipidemia: on statin. 7. GERD: on PPI 8. DVT prophylaxis: heparin Code status: full code. Code Visit Inpatient E&M: 73353 Subs Hosp L3
--- NOTE | 2018-03-04 09:16 | PN_ITS ---
Subjective: Patient seen and examined. She still confused. Still on the insulin drip. Anion gap is closed. She is able to answer questions and denies any fever or chills, any cough or chest pain, shortness of breath, abdominal pain, any diarrhea vomiting. She still however quite lethargic and confused. Labs and vitals reviewed. 12 point Review of systems otherwise negative. Vitals/I&O's: Vital Signs Temp Pulse Resp BP Pulse Ox 99.3 F H 97 13 137/55 H 95 03/04/18 06:00 03/04/18 06:00 03/04/18 06:00 03/04/18 06:00 03/04/18 08:01 Oxygen Delivery Method Room Air Weight: 114 lb 6.719 oz Body Mass Index (BMI) 22.4 Finger Stick Blood Glucose 258 Intake and Output for Last 24 Hours 03/02/18 03/03/18 03/04/18 23:59 23:59 23:59 Intake Total 3992 / 3992 1930.8 / 1930.8 Output Total 1675 / 1675 1080 / 1080 Balance 2317 / 2317 850.8 / 850.8 General: Alert, Cooperative, No apparent distress, Confused, Lethargic HEENT: Atraumatic, PERRLA, EOMI, Normocephalic Oral: Dry Mucosa Neck: Supple, No JVD, Negative Carotid Bruits Lungs: Clear to auscultation, Normal air movement, No rhonchi, No wheeze Cardiovascular: Regular rate, Regular Rhythm, Normal S1, Normal S2, No murmurs Abdomen: Bowel Sounds Present, Soft, Non Tender, Non-Distended, No Hepato- splenomegaly Extremities: No clubbing, No cyanosis, No edema, Capillary Refill Less than 3 Seconds Skin: No rashes, No breakdown Musculoskeletal: No Tenderness to Palpation of Joints or Extremities Lymphatic: No Cervical, Supraclavicular, or Inguinal Adenopathy Neurological: Cranial nerves II-XII grossly intact, Neuro grossly intact Psych/Mental Status: - - confused Laboratory Results 03/03/18 07:50: MRSA (PCR) Negative 03/03/18 07:56: POC Glucose > 500 H* 03/03/18 08:39: Specimen Type ART, Sample Site L Radial, pH 7.08 L*, Bicarbonate Actual 4.1 L, POC Total CO2 < 5, Base Excess -26 L, O2 Saturation 96 , ABG pCO2 13.8 L*, ABG pO2 110 H, Eddi Test POS, O2 Delivery Device Room Air, Blood Gas Notified Whom ICU , Blood Gas Notified Time 830 03/03/18 08:50: PT 13.3, INR 1.0, APTT 21.8 L 03/03/18 12:25: Sodium 144, Potassium 3.6, Chloride 114 H, Carbon Dioxide 7.0 L* , Anion Gap 23 H, BUN 26 H, Creatinine 1.39 H, Estim Creat Clear Calc 31.92, Est GFR (MDRD) Af Amer 49 L, Est GFR (MDRD) Non-Af 41 L, BUN/Creatinine Ratio 18.7, Glucose 478 H*, Calcium 7.3 L 03/03/18 12:59: POC Glucose 408 H 03/03/18 13:56: POC Glucose 385 H 03/03/18 14:56: POC Glucose 348 H 03/03/18 16:00: Sodium 151 H, Potassium 3.2 L, Chloride 123 H, Carbon Dioxide 12.0 L, Anion Gap 16 H, BUN 23 H, Creatinine 1.40 H, Estim Creat Clear Calc 31.69, Est GFR (MDRD) Af Amer 49 L, Est GFR (MDRD) Non-Af 40 L, BUN/Creatinine Ratio 16.4, Glucose 313 H, Calcium 7.3 L 03/03/18 16:02: POC Glucose 288 H 03/03/18 17:04: POC Glucose 235 H 03/03/18 18:07: POC Glucose 258 H 03/03/18 19:00: POC Glucose 265 H 03/03/18 19:59: POC Glucose 264 H 03/03/18 20:03: Sodium 150 H, Potassium 4.0, Chloride 125 H, Carbon Dioxide 15.0 L, Anion Gap 10, BUN 21 H, Creatinine 1.36 H, Estim Creat Clear Calc 32.62 , Est GFR (MDRD) Af Amer 50 L, Est GFR (MDRD) Non-Af 42 L, BUN/Creatinine Ratio 15.4, Glucose 278 H, Calcium 7.3 L 03/03/18 21:05: POC Glucose 231 H 03/03/18 23:04: POC Glucose 235 H 03/03/18 23:57: POC Glucose 174 H 03/04/18 00:00: Sodium 150 H, Potassium 3.3 L, Chloride 127 H*, Carbon Dioxide 15.0 L, Anion Gap 8, BUN 20 H, Creatinine 1.31 H, Estim Creat Clear Calc 33.87, Est GFR (MDRD) Af Amer 53 L, Est GFR (MDRD) Non-Af 44 L, BUN/Creatinine Ratio 15.3, Glucose 194 H, Calcium 7.1 L 03/04/18 01:01: POC Glucose 164 H 03/04/18 02:20: POC Glucose 167 H 03/04/18 03:28: POC Glucose 137 H 03/04/18 04:20: POC Glucose 124 H 03/04/18 04:25: Sodium 151 H, Potassium 3.1 L, Chloride 126 H, Carbon Dioxide 16.0 L, Anion Gap 9, BUN 18, Creatinine 1.24 H, Estim Creat Clear Calc 35.78, Est GFR (MDRD) Af Amer 56 L, Est GFR (MDRD) Non-Af 46 L, BUN/Creatinine Ratio 14.5, Glucose 115 H, Calcium 7.2 L 03/04/18 04:25: WBC 11.4 H, RBC 3.44 L, Hgb 10.6 L, Hct 30.1 L, MCV 87.5, MCH 30.8, MCHC 35.2, RDW 12.7, RDW Differential 39.1, Plt Count 229, MPV 11.3 03/04/18 06:27: POC Glucose 87 03/04/18 07:46: POC Glucose 73 03/04/18 08:36: POC Glucose 90 Current Medications Acetaminophen (Tylenol) 650 mg RECTAL Q4H PRN PRN PRN Reason: fever, pain Al Hydroxide/Mg Hydroxide (Mylanta Ii) 30 ml PO Q6H PRN PRN PRN Reason: Gastric burning Dextrose (D50w Syringe) 0 gm IV X1 PRN; Protocol PRN Reason: HYPOGLYCEMIA Heparin Sodium (Porcine) (Heparin Na) 5,000 unit SC Q8 BUFFY Last Admin: 03/04/18 06:30 Dose: 5,000 unit Sodium Chloride () 1,000 mls @ 999 mls/hr IV .Q1H1M ONE Last Admin: 03/03/18 04:54 Dose: 999 mls/hr Insulin Human Lispro 100 unit/ (Sodium Chloride) 100 mls @ 5.23 mls/hr IV .Q19H8M BUFFY; 0.1 UNITS/KG/HR PRN Reason: Protocol Last Admin: 03/04/18 06:31 Dose: Not Given Pantoprazole Sodium 40 mg/ (Sodium Chloride) 110 mls @ 330 mls/hr IV Q12 BUFFY Last Admin: 03/03/18 21:00 Dose: 330 mls/hr Sodium Chloride () 250 mls @ 15 mls/hr IV .[id number] PRN PRN Reason: SALINE FLUSH Potassium Chloride/Dextrose/Sod Cl (Kcl 20meq In D5.45ns 1000ml) 1,000 mls @ 125 mls/hr IV .Q8H BUFFY Last Admin: 03/04/18 01:17 Dose: 125 mls/hr Insulin Glargine (Lantus (Bkc)) 15 units SC BID BUFFY Last Admin: 03/04/18 07:47 Dose: 15 u Magnesium Hydroxide (Milk Of Magnesia) 30 ml PO DAILY PRN PRN PRN Reason: Constipation Metoprolol Tartrate (Lopressor (Beta Daisy)) 5 mg IV Q6H PRN PRN Reason: SBP > 160, hold for HR < 60 Ondansetron HCl (Zofran) 4 mg IV Q8H PRN PRN PRN Reason: NAUSEA Last Admin: 03/03/18 09:24 Dose: 4 mg Promethazine HCl (Phenergan) 12.5 mg IV Q6H PRN PRN PRN Reason: NAUSEA/VOMITING Sodium Chloride () 5 - 30 ml IV UD PRN PRN Reason: SALINE FLUSH Last Admin: 03/04/18 00:03 Dose: 10 ml Medical Necessity - Tobacco Use Smoking Status: Former smoker Tobacco Use: Non-smoker Assessment/Plan All Active Problems DKA (diabetic ketoacidoses) (Acute) CINDY (acute kidney injury) (Acute) 1. DKA in a known diabetic likely due to noncompliance * still remains very lethargic * anion gap has closed; remains on insulin drip * bicarb up to 16 today; anion gap is 9 * plan is to be switched to lantus today, then insulin drip will be stopped * A1C was ~ 14 * machine stoppage frequency checker on board * 2. Hypokalemia * resolving. K today is 3.1 * replace and monitor * * 3. Acute metabolic encephalopathy due to DKA * still appears confused and lethargic * management as per 1. * * * 4. CINDY due to dehydration * Cr was 1.94 on admission, now down to 1.24 * will monitor * 5. Hypertension: * BP meds on hold o/a of severe encephalopathy. * On carvedilol at home. BP has been quite controlled. * on IV lopressor prn * * 6. Hyperlipidemia: on statin. 7. GERD: on PPI 8. DVT prophylaxis: heparin Code status: full code. Code Visit Inpatient E&M: 60083 Subs Hosp L3
[2018-03-04] MEDS: Pantoprazole Sodium 40 MG Tablet PO ×2 (10:41→22:12)
--- NOTE | 2018-03-04 10:45 | CASEMGMT ---
RN CM Note: Family is present in room for patient. Requesting to speak with SW. Message left with JorgeRushBuck ALAS that family would like to speak with her. Tasia BOYCEN RN ACM
--- NOTE | 2018-03-04 11:35 | CASEMGMT ---
RN CM NOTE:
--- NOTE | 2018-03-04 11:35 | CASEMGMT ---
PATRICK YAN Note. Pt's niece and sister in law requested to speak with PATRICK YAN. Intro role to them. They are very concerned re: pt returning to niece's house. Niece states pt is hoarder and home is in horrible condition including mice, smells noted from even outside home. PATRICK YAN inquired re: daughter and son-in-law in [place]. Niece and sister in law state they want nothing to do with her. No DPOA that they are aware of. -PATRICK YAN acknowledged their concerns. Recommended they speak with EVETTE Rosa. Family stated they have been waiting to do this. Niece works overnight caregiver and is tired. PATRICK YAN let them know their concerns will be addressed and PATRICK YAN/EVETTE will assist with dc planning. Family would like pt placed in SNF on discharge. Family will wait for SW consult and explain concerns to her. Tasia NIEVES RN ACM
[2018-03-04 11:50] LABS: Bedside Glucose 343 mg/dL (70-110)
[2018-03-04] MEDS: Insulin Lispro 100 UNIT/ML INSULN.PEN SC ×3 (12:22→22:10)
--- NOTE | 2018-03-04 13:05 | CASEMGMT ---
Social Work Note EVETTE met with pt's niece Moni and sister in law Ofelia. Michelle informed this worker of their concerns about pt returning home. Moni states that she allowed pt to live with her after pt's daughter kicked pt out of the home that she was staying in. Moni states that pt was living in the home of her daughter's. Moni states that pt is a hoarder and had mice and rat in the home. Moni states that she was unable to get into pt's home when she moved pt in to her home. Michelle states that pt is not safe to return home as pt is requiring a lot of assistance and having inappopriate behaviors. Moni states that pt would poop around her home and would take her clothes off in the home. Michelle asked about HCPOA for pt. Michelle states that pt is in the right mindset now and they would like pt to complete HCPOA. EVETTE informed Michelle that this worker can meet with pt to see if she wishes to complete HCPOA. Michelle states that they would like pt to go to SNF at discharge but doesn't want this worker to mention this to pt. EVETTE informed Michelle that this worker has to mention to pt about going to SNF and if pt is alert and orientated and wishes to not go to SNF then this SW has to respect patient's decisions and can't make pt go to SNF. Ofelia states that that is why they would like HCPOA to be completed so they can make decisions for pt. EVETTE explained that HCPOA only comes into action if pt is confused, not alert or orientated and is unable to make decisions for herself. EVETTE once again explained to Michelle that if pt is alert and orientated she is able to make decisions for herself. Ofelia provided direct number [phone]. Ofelia also provided pt's sister María number [phone]. EVETTE attempted to meet with pt. Pt currently working with PT. SW will see pt later as time allows. Plan: NAZARIO Jane CLEAN ROOM ASSEMBLER, SCREEN WRITER
--- NOTE | 2018-03-04 14:54 | CASEMGMT ---
Social Work Note EVETTE met with pt to confirm discharge plans. Pt's sister María and sister in law Ofelia present in room. Pt confirms that she wishes to complete advanced directives. Pt completed advanced directives. This worker and RN FARRAH Hamilton witnessed pt's signature. EVETTE placed copy in pt's chart and provided pt with the original. Per request, this worker provided María and Ofelia with copy of advanced directives too. [place] states that before coming in to the hospital she was living with her niece Moni in a two story home. Pt states that there are four steps into her home and four steps in her home. Pt states that she was previously independent with ADLS except cleaning. Pt states that she is a hoarder. Pt states that before moving in with her niece she was living in [place], [place] and lived there for 4 years. DME include cane and walker. Pt denied current substance abuse. Pt states that a long time ago she smoked and was a drug user. Pt denied current use. Pt states that she has a history of depression and anxiety. Pt states that she currently takes Prozac but couldn't remember the name of the medication she takes for her anxiety. Pt states that she had a PCP in [place] but that she will be going to see Dr. Pérez in [place], [place]. Pt is agreeable to referral being sent to [facility]. EVETTE explained referral process and that this worker will also send referral to [facility] for Medicaid. Pt states understanding. Pt, María and Ofelia denied additional needs or concerns at this time. EVETTE faxed referral to Lanny at [facility]. EVETTE placed a call to Lanny to inform her of referral. Lanny states she will review referral and give this worker a call back if she is able to accept. Plan: [facility] pending acceptance. Pt will need Level of Care. Susan Jane MARKETING TECHNOLOGIST, MACHINE ROOM ENGINEER
[2018-03-04 17:16] LABS: Bedside Glucose 360 mg/dL (70-110)
[2018-03-04] MEDS: Mag Hydrox/Al Hydrox/Simeth 30 ML UDC PO (18:50)
[2018-03-04 22:21] LABS: Bedside Glucose 285 mg/dL (70-110)
[2018-03-05] VITALS (11 sets, daily range): BP systolic 140–154; BP diastolic 76–92; PULSE 83–106; RESP 16; TEMP 36.6–37.1; O2SAT 97–100
[2018-03-05] MEDS: Heparin Injection (Vial) 5,000 UNIT/ML VIAL 5000 UNIT SC ×3 (06:52→22:04)
[2018-03-05 06:56] LABS: Absolute Lymphocyte Count 1.73 X10^3/ul (0.83-4.51); Absolute Neutrophil Count 3.2 X10^3/uL (2.0-7.7); Basophil# 0.02 X10^3/uL; Basophil% 0.4 % (0-1); Eosinophil# 0.05 X10^3/uL; Eosinophils% 0.9 % (0-5); Hematocrit 28.7 % (37-47); Hemoglobin 10.3 g/dl (12.0-15.0); Lymphocyte # 1.73 X10^3/ul (4.0); Lymphocyte % 31.6 % (19-41); Mean Corp Hgb Conc 35.9 g/gl (32-36); Mean Corpuscular Volume 86.4 fL (81-99); Mean Platelet Vol. 11.3 fl (6.2-12.0); Monocyte# 0.49 X10^3/uL; Monocyte% 8.9 % (0-10); Neutrophil # 3.19 X10^3/uL (2.7-7.7); Neutrophil % 58.2 % (47-70); Platelet Count 156 K/mm3 (150-450); RBC Distribution Width CV 12.6 % (11.6-14.6); Red Blood Count 3.32 M/mm3 (4.2-5.4); White Blood Count 5.5 K/mm3 (4.4-11.0)
[2018-03-05 06:57] LABS: POSITIVE COUNT NO; POSITIVE DIFFERENTIAL NO; POSITIVE MORPHOLOGY NO
[2018-03-05 07:06] LABS: Bedside Glucose 73 mg/dL (70-110)
[2018-03-05 07:12] LABS: Anion Gap 7 (5-15); BUN 9 mg/dL (7-18); BUN/Creat Ratio 11.8 RATIO (10-20); Calcium,Total 7.6 mg/dL (8.5-10.1); Chloride 116 mmol/L (98-107); Creatinine, Serum 0.76 mg/dL (0.55-1.02); EST Glomerular Filtration Rate 81 mL/min (>60); Est Glom Filt Rate - Afr Amer 98 mL/min (>60); Estimated Creatinine Clearance 63.03 ml/min; Glucose 82 mg/dL (74-106); Phosphorus 0.8 mg/dL (2.5-4.9); Potassium 2.7 mmol/L (3.5-5.1); Sodium Level 146 mmol/L (136-145)
--- NOTE | 2018-03-05 07:58 | PCM.PN.INT ---
Subjective: Patient transferred out of the intensive care unit yesterday. No acute issues were reported overnight. Patient feels that she is at her baseline at this time. General: Alert, Oriented x3, Cooperative, No apparent distress, - - Speaking in full sentences. HEENT: Atraumatic, PERRLA, EOMI, Normocephalic, - - No scleral icterus or injection noted. Oral: Moist Mucosa, No Gingival or Mucosal Lesions/ Ulcerations Neck: Supple, No JVD, No Nodes, Trachea Midline Lungs: Clear to auscultation, Normal air movement, No rhonchi, No wheeze, No rales, - - Symmetric expansion. No dullness to percussion. Cardiovascular: Regular rate, Regular Rhythm, Normal S1, Normal S2, No murmurs, No rub noted, No Gallop Abdomen: Bowel Sounds Present, Soft, Non Tender, Non-Distended Extremities: No clubbing, No cyanosis, No edema, Capillary Refill Less than 3 Seconds Skin: No rashes, No breakdown Musculoskeletal: No Tenderness to Palpation of Joints or Extremities Lymphatic: No Cervical, Supraclavicular, or Inguinal Adenopathy Neurological: Cranial nerves II-XII grossly intact, Neuro grossly intact, Motor Exam 5/5 strength throughout Psych/Mental Status: Alert and oriented to time, place, person, mood and affect Vital Signs Temp Pulse Resp BP Pulse Ox 36.6 C 90 16 153/83 H 98 03/05/18 07:27 03/05/18 07:27 03/05/18 07:27 03/05/18 07:27 03/05/18 07:27 Oxygen Delivery Method Room Air Weight: 52.7 kg Body Mass Index (BMI) 22.4 Finger Stick Blood Glucose 258 Intake and Output for Last 24 Hours 03/03/18 03/04/18 03/05/18 23:59 23:59 23:59 Intake Total 3992 / 3992 2630.8 / 2630.8 0 / 0 Output Total 1675 / 1675 1930 / 1930 Balance 2317 / 2317 700.8 / 700.8 0 / 0 Labs (Last 48 Hours) 03/03/18 03/03/18 03/03/18 07:50 07:56 08:15 WBC RBC Hgb Hct MCV MCH MCHC RDW RDW Differential Plt Count MPV Immature Gran % (Auto) Neut % (Auto) Lymph % (Auto) [place] % (Auto) Eos % (Auto) Baso % (Auto) Absolute Neuts (auto) Absolute Lymphs (auto) Total Counted PT INR APTT Specimen Type Sample Site pH Bicarbonate Actual POC Total CO2 Base Excess O2 Saturation ABG pCO2 ABG pO2 Eddi Test O2 Delivery Device Blood Gas Notified Whom Blood Gas Notified Time Sodium 140 Potassium 2.3 L* Chloride 100 Carbon Dioxide 6.0 L* Anion Gap 34 H BUN 28 H Creatinine 1.88 H Estim Creat Clear Calc 23.60 Est GFR (MDRD) Af Amer 35 L Est GFR (MDRD) Non-Af 29 L BUN/Creatinine Ratio 14.9 Glucose 720 H* Calcium 8.7 Phosphorus Magnesium MRSA (PCR) Negative POC Glucose > 500 H* 03/03/18 03/03/18 03/03/18 08:39 08:50 12:25 WBC RBC Hgb Hct MCV MCH MCHC RDW RDW Differential Plt Count MPV Immature Gran % (Auto) Neut % (Auto) Lymph % (Auto) [place] % (Auto) Eos % (Auto) Baso % (Auto) Absolute Neuts (auto) Absolute Lymphs (auto) Total Counted PT 13.3 INR 1.0 APTT 21.8 L Specimen Type ART Sample Site L Radial pH 7.08 L* Bicarbonate Actual 4.1 L POC Total CO2 < 5 Base Excess -26 L O2 Saturation 96 ABG pCO2 13.8 L* ABG pO2 110 H Eddi Test POS O2 Delivery Device Room Air Blood Gas Notified Whom ICU MD Blood Gas Notified Time 830 Sodium 144 Potassium 3.6 Chloride 114 H Carbon Dioxide 7.0 L* Anion Gap 23 H BUN 26 H Creatinine 1.39 H Estim Creat Clear Calc 31.92 Est GFR (MDRD) Af Amer 49 L Est GFR (MDRD) Non-Af 41 L BUN/Creatinine Ratio 18.7 Glucose 478 H* Calcium 7.3 L Phosphorus Magnesium MRSA (PCR) POC Glucose 03/03/18 03/03/18 03/03/18 12:59 13:56 14:56 WBC RBC Hgb Hct MCV MCH MCHC RDW RDW Differential Plt Count MPV Immature Gran % (Auto) Neut % (Auto) Lymph % (Auto) [place] % (Auto) Eos % (Auto) Baso % (Auto) Absolute Neuts (auto) Absolute Lymphs (auto) Total Counted PT INR APTT Specimen Type Sample Site pH Bicarbonate Actual POC Total CO2 Base Excess O2 Saturation ABG pCO2 ABG pO2 Eddi Test O2 Delivery Device Blood Gas Notified Whom Blood Gas Notified Time Sodium Potassium Chloride Carbon Dioxide Anion Gap BUN Creatinine Estim Creat Clear Calc Est GFR (MDRD) Af Amer Est GFR (MDRD) Non-Af BUN/Creatinine Ratio Glucose Calcium Phosphorus Magnesium MRSA (PCR) POC Glucose 408 H 385 H 348 H 03/03/18 03/03/18 03/03/18 16:00 16:02 17:04 WBC RBC Hgb Hct MCV MCH MCHC RDW RDW Differential Plt Count MPV Immature Gran % (Auto) Neut % (Auto) Lymph % (Auto) [place] % (Auto) Eos % (Auto) Baso % (Auto) Absolute Neuts (auto) Absolute Lymphs (auto) Total Counted PT INR APTT Specimen Type Sample Site pH Bicarbonate Actual POC Total CO2 Base Excess O2 Saturation ABG pCO2 ABG pO2 Eddi Test O2 Delivery Device Blood Gas Notified Whom Blood Gas Notified Time Sodium 151 H Potassium 3.2 L Chloride 123 H Carbon Dioxide 12.0 L Anion Gap 16 H BUN 23 H Creatinine 1.40 H Estim Creat Clear Calc 31.69 Est GFR (MDRD) Af Amer 49 L Est GFR (MDRD) Non-Af 40 L BUN/Creatinine Ratio 16.4 Glucose 313 H Calcium 7.3 L Phosphorus Magnesium MRSA (PCR) POC Glucose 288 H 235 H 03/03/18 03/03/18 03/03/18 18:07 19:00 19:59 WBC RBC Hgb Hct MCV MCH MCHC RDW RDW Differential Plt Count MPV Immature Gran % (Auto) Neut % (Auto) Lymph % (Auto) [place] % (Auto) Eos % (Auto) Baso % (Auto) Absolute Neuts (auto) Absolute Lymphs (auto) Total Counted PT INR APTT Specimen Type Sample Site pH Bicarbonate Actual POC Total CO2 Base Excess O2 Saturation ABG pCO2 ABG pO2 Dedi Test O2 Delivery Device Blood Gas Notified Whom Blood Gas Notified Time Sodium Potassium Chloride Carbon Dioxide Anion Gap BUN Creatinine Estim Creat Clear Calc Est GFR (MDRD) Af Amer Est GFR (MDRD) Non-Af BUN/Creatinine Ratio Glucose Calcium Phosphorus Magnesium MRSA (PCR) POC Glucose 258 H 265 H 264 H 03/03/18 03/03/18 03/03/18 20:03 21:05 23:04 WBC RBC Hgb Hct MCV MCH MCHC RDW RDW Differential Plt Count MPV Immature Gran % (Auto) Neut % (Auto) Lymph % (Auto) [place] % (Auto) Eos % (Auto) Baso % (Auto) Absolute Neuts (auto) Absolute Lymphs (auto) Total Counted PT INR APTT Specimen Type Sample Site pH Bicarbonate Actual POC Total CO2 Base Excess O2 Saturation ABG pCO2 ABG pO2 Eddi Test O2 Delivery Device Blood Gas Notified Whom Blood Gas Notified Time Sodium 150 H Potassium 4.0 Chloride 125 H Carbon Dioxide 15.0 L Anion Gap 10 BUN 21 H Creatinine 1.36 H Estim Creat Clear Calc 32.62 Est GFR (MDRD) Af Amer 50 L Est GFR (MDRD) Non-Af 42 L BUN/Creatinine Ratio 15.4 Glucose 278 H Calcium 7.3 L Phosphorus Magnesium MRSA (PCR) POC Glucose 231 H 235 H 03/03/18 03/04/18 03/04/18 23:57 00:00 01:01 WBC RBC Hgb Hct MCV MCH MCHC RDW RDW Differential Plt Count MPV Immature Gran % (Auto) Neut % (Auto) Lymph % (Auto) [place] % (Auto) Eos % (Auto) Baso % (Auto) Absolute Neuts (auto) Absolute Lymphs (auto) Total Counted PT INR APTT Specimen Type Sample Site pH Bicarbonate Actual POC Total CO2 Base Excess O2 Saturation ABG pCO2 ABG pO2 Eddi Test O2 Delivery Device Blood Gas Notified Whom Blood Gas Notified Time Sodium 150 H Potassium 3.3 L Chloride 127 H* Carbon Dioxide 15.0 L Anion Gap 8 BUN 20 H Creatinine 1.31 H Estim Creat Clear Calc 33.87 Est GFR (MDRD) Af Amer 53 L Est GFR (MDRD) Non-Af 44 L BUN/Creatinine Ratio 15.3 Glucose 194 H Calcium 7.1 L Phosphorus Magnesium MRSA (PCR) POC Glucose 174 H 164 H 03/04/18 03/04/18 03/04/18 02:20 03:28 04:20 WBC RBC Hgb Hct MCV MCH MCHC RDW RDW Differential Plt Count MPV Immature Gran % (Auto) Neut % (Auto) Lymph % (Auto) [place] % (Auto) Eos % (Auto) Baso % (Auto) Absolute Neuts (auto) Absolute Lymphs (auto) Total Counted PT INR APTT Specimen Type Sample Site pH Bicarbonate Actual POC Total CO2 Base Excess O2 Saturation ABG pCO2 ABG pO2 Eddi Test O2 Delivery Device Blood Gas Notified Whom Blood Gas Notified Time Sodium Potassium Chloride Carbon Dioxide Anion Gap BUN Creatinine Estim Creat Clear Calc Est GFR (MDRD) Af Amer Est GFR (MDRD) Non-Af BUN/Creatinine Ratio Glucose Calcium Phosphorus Magnesium MRSA (PCR) POC Glucose 167 H 137 H 124 H 03/04/18 03/04/18 03/04/18 04:25 04:25 06:27 WBC 11.4 H RBC 3.44 L Hgb 10.6 L Hct 30.1 L MCV 87.5 MCH 30.8 MCHC 35.2 RDW 12.7 RDW Differential 39.1 Plt Count 229 MPV 11.3 Immature Gran % (Auto) Neut % (Auto) Lymph % (Auto) [place] % (Auto) Eos % (Auto) Baso % (Auto) Absolute Neuts (auto) Absolute Lymphs (auto) Total Counted PT INR APTT Specimen Type Sample Site pH Bicarbonate Actual POC Total CO2 Base Excess O2 Saturation ABG pCO2 ABG pO2 Eddi Test O2 Delivery Device Blood Gas Notified Whom Blood Gas Notified Time Sodium 151 H Potassium 3.1 L Chloride 126 H Carbon Dioxide 16.0 L Anion Gap 9 BUN 18 Creatinine 1.24 H Estim Creat Clear Calc 35.78 Est GFR (MDRD) Af Amer 56 L Est GFR (MDRD) Non-Af 46 L BUN/Creatinine Ratio 14.5 Glucose 115 H Calcium 7.2 L Phosphorus Magnesium MRSA (PCR) POC Glucose 87 03/04/18 03/04/18 03/04/18 07:46 08:36 11:43 WBC RBC Hgb Hct MCV MCH MCHC RDW RDW Differential Plt Count MPV Immature Gran % (Auto) Neut % (Auto) Lymph % (Auto) [place] % (Auto) Eos % (Auto) Baso % (Auto) Absolute Neuts (auto) Absolute Lymphs (auto) Total Counted PT INR APTT Specimen Type Sample Site pH Bicarbonate Actual POC Total CO2 Base Excess O2 Saturation ABG pCO2 ABG pO2 Eddi Test O2 Delivery Device Blood Gas Notified Whom Blood Gas Notified Time Sodium Potassium Chloride Carbon Dioxide Anion Gap BUN Creatinine Estim Creat Clear Calc Est GFR (MDRD) Af Amer Est GFR (MDRD) Non-Af BUN/Creatinine Ratio Glucose Calcium Phosphorus Magnesium MRSA (PCR) POC Glucose 73 90 343 H 03/04/18 03/04/18 03/05/18 17:08 22:09 06:42 WBC 5.5 RBC 3.32 L Hgb 10.3 L Hct 28.7 L MCV 86.4 MCH 31.0 MCHC 35.9 RDW 12.6 RDW Differential 38.0 Plt Count 156 MPV 11.3 Immature Gran % (Auto) 0.000 Neut % (Auto) 58.2 Lymph % (Auto) 31.6 [place] % (Auto) 8.9 Eos % (Auto) 0.9 Baso % (Auto) 0.4 Absolute Neuts (auto) 3.2 Absolute Lymphs (auto) 1.73 Total Counted Not Reportable PT INR APTT Specimen Type Sample Site pH Bicarbonate Actual POC Total CO2 Base Excess O2 Saturation ABG pCO2 ABG pO2 Eddi Test O2 Delivery Device Blood Gas Notified Whom Blood Gas Notified Time Sodium Potassium Chloride Carbon Dioxide Anion Gap BUN Creatinine Estim Creat Clear Calc Est GFR (MDRD) Af Amer Est GFR (MDRD) Non-Af BUN/Creatinine Ratio Glucose Calcium Phosphorus Magnesium MRSA (PCR) POC Glucose 360 H 285 H 03/05/18 03/05/18 06:42 06:49 WBC RBC Hgb Hct MCV MCH MCHC RDW RDW Differential Plt Count MPV Immature Gran % (Auto) Neut % (Auto) Lymph % (Auto) [place] % (Auto) Eos % (Auto) Baso % (Auto) Absolute Neuts (auto) Absolute Lymphs (auto) Total Counted PT INR APTT Specimen Type Sample Site pH Bicarbonate Actual POC Total CO2 Base Excess O2 Saturation ABG pCO2 ABG pO2 Edid Test O2 Delivery Device Blood Gas Notified Whom Blood Gas Notified Time Sodium 146 H Potassium 2.7 L* Chloride 116 H Carbon Dioxide 23.0 Anion Gap 7 BUN 9 Creatinine 0.76 Estim Creat Clear Calc 63.03 Est GFR (MDRD) Af Amer 98 Est GFR (MDRD) Non-Af 81 BUN/Creatinine Ratio 11.8 Glucose 82 Calcium 7.6 L Phosphorus 0.8 L* Magnesium 2.0 MRSA (PCR) POC Glucose 73 Clinical Impression(s) from Imaging Studies Chest X-Ray 03/04/18 05:40 IMPRESSION: No focal consolidation. Electronically Signed: Keven Contreras DO at 9:33 EDT Tel , Service support , Medical Necessity - Tobacco Use Smoking Status: Former smoker Tobacco Use: Non-smoker Assessment/Plan All Active Problems DKA (diabetic ketoacidoses) (Acute) CINDY (acute kidney injury) (Acute) RECOMMENDATIONS: 1. Aggressive potassium repletion as indicated 2. Continue delirium protocol 3. Probable need for usp placement at discharge 4. Will sign off from a critical care perspective IMPRESSIONS: 1. DKA with severe metabolic acidosis secondary to possible pneumonia Patient has responded well to DKA protocol. Unfortunately, patient's hemoglobin A1c shows pronounced long-term poor control of diabetes mellitus. Patient may need slight lowering of Lantus therapy given blood sugar of 73 this morning. No symptoms were reported. Patient does have significant hypokalemia noted. 2. Hypokalemia No EKG changes are noted at this time, so calcium not given. Patient was ordered potassium phosphate, but anticipate 100+ mEq of potassium will be required for normalization. Defer to hospitalist on if recheck should be completed this evening. Clinical suspicion for a refeeding type syndrome given decreased potassium and hypophosphatemia. 3. Suspected acute kidney injury RESOLVED > No baseline information is available at this time as the patient's baseline creatinine. Patient responded well to increase in free water intake. Hypernatremia and hyperchloremia are improving. 4. Hypertension/hyperlipidemia/GERD/poor background information Complicates care, management, recovery and prognosis. Patient with multiple medications, but appears to be nonadherent. Hold all medications for now and reinitiate in a stepwise fashion. 5. CODE STATUS Patient currently confused. Full CODE STATUS has been requested by family. Code Visit Inpatient E&M: 76552 Subs Hosp L2
[2018-03-05] MEDS: 0.9% NaCl Peripheral Flush Adult/Peds IV (09:06)
[2018-03-05] MEDS: Pantoprazole Sodium 40 MG Tablet PO ×2 (09:06→22:05)
--- NOTE | 2018-03-05 10:04 | CASEMGMT ---
Addendum entered by Susan Jane 03/05/18 13:41: Pt's niece Moni didn't answer and voice mailbox is full and can't accept messages. EVETTE will atempt again at a later time to update pt's niece. Original Note: Addendum entered by Susan Jane 03/05/18 13:39: EVETTE attempted to update pt that [facility] accepted her but pt soundly sleeping. EVETTE placed a call to pt's Niece Moni to update her on pt's acceptance. Original Note: Addendum entered by Susan Jane 03/05/18 12:39: EVETTE received call from Lanny at [facility] stating that pt's [employer] was terminated 02/25/2018 and Lanny can take pt under her Medicaid. EVETTE started Level of Care. EVETTE informed Dr. Soriano that transfer to extended care facility will need filled out so this worker can fax to [facility]. EVETTE will fax Level of Care to [facility] when documents are available. Original Note: Addendum entered by Susan Jane 03/05/18 11:19: EVETTE received call from Lanny at [facility] asking about pt's insurance. Lanny states that she ran pt's Medicaid and it is showing as active. EVETTE informed Lanny that the insurance cards that [facility] has on file is [employer]. EVETTE faxed [employer] insurance cards to Lanny at [facility]. EVETTE waiting to hear from Lanny at [facility] regarding pt's insurance. Original Note: Social Work Not EVETTE received message from Lanny at [facility] stating that she is able to accept pt. EVETTE went to begin level of care for pt. Pt's insurance cards state that pt has [employer]. Pt will need pre-cert and not Level of care. EVETTE placed a call to Lanny at [facility] and left her a message asking if she is able to accept [employer] or if she is able to get one time contract. EVETTE also asked Lanny if she is able to still accept pt if PT/OT are recommending home at discharge. EVETTE waiting to hear back from Lanny at [facility] as this is pt and pt's family first choice for SNF. Plan: EVETTE waiting to hear back from [facility] about pt's insurance. Pt will need pre-cert Susan Jane LAND DEVELOPER, SAWING AND ASSEMBLY SUPERVISOR
--- NOTE | 2018-03-05 10:11 | PCM.PN.HOSP ---
Subjective: Patient seen and examined. She was admitted and managed for DKA likely due to noncompliance with her diabetes medications. Anion gap is closed and patient started on Lantus 15 units subcu twice daily. Patient seen and examined she has no complaints and was eating breakfast. She denied any fever or chills, and cough or chest pain, shortness of breath, any abdominal pain diarrhea or vomiting. Review of systems is otherwise negative. Labs and vitals reviewed. Noted to have severe hypokalemia and hypophosphatemia today which have been replaced. Vitals/I&O's: Vital Signs Temp Pulse Resp BP Pulse Ox 97.8 F 90 16 153/83 H 98 03/05/18 07:27 03/05/18 07:27 03/05/18 07:27 03/05/18 07:27 03/05/18 07:27 Oxygen Delivery Method Room Air Weight: 116 lb 2.938 oz Body Mass Index (BMI) 22.4 Finger Stick Blood Glucose 258 Intake and Output for Last 24 Hours 03/03/18 03/04/18 03/05/18 23:59 23:59 23:59 Intake Total 3992 / 3992 2630.8 / 2630.8 0 / 0 Output Total 1675 / 1675 1930 / 1930 Balance 2317 / 2317 700.8 / 700.8 0 / 0 General: Alert, Oriented x3, Cooperative, No apparent distress HEENT: Atraumatic, PERRLA, EOMI, Normocephalic Oral: Moist Mucosa Neck: Supple, No JVD, Negative Carotid Bruits Lungs: Clear to auscultation, Normal air movement, No rhonchi, No wheeze, No rales Cardiovascular: Regular rate, Regular Rhythm, Normal S1, Normal S2, No murmurs Abdomen: Bowel Sounds Present, Soft, Non Tender, Non-Distended, No Hepato-splenomegaly Extremities: No clubbing, No cyanosis, No edema, Capillary Refill Less than 3 Seconds Skin: No rashes, No breakdown Musculoskeletal: No Tenderness to Palpation of Joints or Extremities Lymphatic: No Cervical, Supraclavicular, or Inguinal Adenopathy Neurological: Cranial nerves II-XII grossly intact, Motor Exam 5/5 strength throughout Psych/Mental Status: Normal Affect, Appropriate, Alert and oriented to time, place, person, mood and affect Laboratory Results 03/04/18 11:43: POC Glucose 343 H 03/04/18 17:08: POC Glucose 360 H 03/04/18 22:09: POC Glucose 285 H 03/05/18 06:42: WBC 5.5, RBC 3.32 L, Hgb 10.3 L, Hct 28.7 L, MCV 86.4, MCH 31.0, MCHC 35.9, RDW 12.6, RDW Differential 38.0, Plt Count 156, MPV 11.3, Immature Gran % (Auto) 0.000, Neut % (Auto) 58.2, Lymph % (Auto) 31.6, [place] % (Auto) 8.9, Eos % (Auto) 0.9, Baso % (Auto) 0.4, Absolute Neuts (auto) 3.2, Absolute Lymphs (auto) 1.73, Total Counted Not Reportable 03/05/18 06:42: Sodium 146 H, Potassium 2.7 L*, Chloride 116 H, Carbon Dioxide 23.0, Anion Gap 7, BUN 9, Creatinine 0.76, Estim Creat Clear Calc 63.03, Est GFR (MDRD) Af Amer 98, Est GFR (MDRD) Non-Af 81, BUN/Creatinine Ratio 11.8, Glucose 82, Calcium 7.6 L, Phosphorus 0.8 L*, Magnesium 2.0 03/05/18 06:49: POC Glucose 73 Current Medications Al Hydroxide/Mg Hydroxide (Mylanta Ii) 30 ml PO Q6H PRN PRN PRN Reason: Gastric burning Last Admin: 03/04/18 18:50 Dose: 30 ml Dextrose (D50w Syringe) 0 gm IV X1 PRN; Protocol PRN Reason: HYPOGLYCEMIA Heparin Sodium (Porcine) (Heparin Na) 5,000 unit SC Q8 BUFFY Last Admin: 03/05/18 06:52 Dose: 5,000 unit Sodium Chloride () 250 mls @ 15 mls/hr IV .[id number] PRN PRN Reason: SALINE FLUSH Potassium Phosphate 40 mm/ (Sodium Chloride) 513.3333 mls @ 62.5 mls/hr IV X1 ONE Stop: 03/05/18 16:42 Last Admin: 03/05/18 09:04 Dose: 62.5 mls/hr Insulin Glargine (Lantus (Bkc)) 15 units SC 1100,2200 [facility] Last Admin: 03/04/18 22:11 Dose: 15 units Insulin Human Lispro (Humalog Kwikpen ([facility])) 0 unit SC ACHS [facility] PRN Reason: Protocol Last Admin: 03/05/18 06:55 Dose: Not Given Magnesium Hydroxide (Milk Of Magnesia) 30 ml PO DAILY PRN PRN PRN Reason: Constipation Ondansetron HCl (Zofran) 4 mg IV Q8H PRN PRN PRN Reason: NAUSEA Last Admin: 03/03/18 09:24 Dose: 4 mg Pantoprazole Sodium (Protonix) 40 mg PO BID [facility] Last Admin: 03/05/18 09:06 Dose: 40 mg Potassium Chloride (K-Dur) 40 meq [facility] Stop: 03/05/18 17:01 Last Admin: 03/05/18 09:04 Dose: 40 meq Promethazine HCl (Phenergan) 12.5 mg IV Q6H PRN PRN PRN Reason: NAUSEA/VOMITING Sodium Chloride () 5 - 30 ml IV UD PRN PRN Reason: SALINE FLUSH Last Admin: 03/05/18 09:06 Dose: 10 ml Medical Necessity - Tobacco Use Smoking Status: Former smoker Tobacco Use: Non-smoker Assessment/Plan All Active Problems DKA (diabetic ketoacidoses) (Acute) CINDY (acute kidney injury) (Acute) 1. DKA in a known diabetic likely due to noncompliance More alert today has no complaints. DKA has resolved and anion gap is closed. started on insulin lantus SC 15IU bid. to adjust as needed 2. Hypokalemia and hypophosphatemia] K is 2.7 and phosphate is 0.8 replaced with potassiium phosphate. will monitor BMP 3. Diabetes mellitus management as per 1 on ISS also. Will resume metformin. 4. CINDY due to dehydration resolved. Cr down to 0.76 5. Hypertension: BP 90-150 systolic. Carvedilol on hold due to severe encephalopathy will resume carvedilol. 6. Hypernatremia Na was 151 yesterdat; is 146 today. Likely due to IVF administration will stop IVF 7. Hyperlipidemia: on statin. 8. GERD: on PPI 9. DVT prophylaxis: heparin Code status: full code. This note was generated with Dragon dictation software. It may contain incorrect words, spelling, and punctuation that were not noted in checking the note before signing. Code Visit Inpatient E&M: 53150 Subs Hosp L3
--- NOTE | 2018-03-05 10:17 | PN_ITS ---
Subjective: Patient seen and examined. She was admitted and managed for DKA likely due to noncompliance with her diabetes medications. Anion gap is closed and patient started on Lantus 15 units subcu twice daily. Patient seen and examined she has no complaints and was eating breakfast. She denied any fever or chills, and cough or chest pain, shortness of breath, any abdominal pain diarrhea or vomiting. Review of systems is otherwise negative. Labs and vitals reviewed. Noted to have severe hypokalemia and hypophosphatemia today which have been replaced. Vitals/I&O's: Vital Signs Temp Pulse Resp BP Pulse Ox 97.8 F 90 16 153/83 H 98 03/05/18 07:27 03/05/18 07:27 03/05/18 07:27 03/05/18 07:27 03/05/18 07:27 Oxygen Delivery Method Room Air Weight: 116 lb 2.938 oz Body Mass Index (BMI) 22.4 Finger Stick Blood Glucose 258 Intake and Output for Last 24 Hours 03/03/18 03/04/18 03/05/18 23:59 23:59 23:59 Intake Total 3992 / 3992 2630.8 / 2630.8 0 / 0 Output Total 1675 / 1675 1930 / 1930 Balance 2317 / 2317 700.8 / 700.8 0 / 0 General: Alert, Oriented x3, Cooperative, No apparent distress HEENT: Atraumatic, PERRLA, EOMI, Normocephalic Oral: Moist Mucosa Neck: Supple, No JVD, Negative Carotid Bruits Lungs: Clear to auscultation, Normal air movement, No rhonchi, No wheeze, No rales Cardiovascular: Regular rate, Regular Rhythm, Normal S1, Normal S2, No murmurs Abdomen: Bowel Sounds Present, Soft, Non Tender, Non-Distended, No Hepato- splenomegaly Extremities: No clubbing, No cyanosis, No edema, Capillary Refill Less than 3 Seconds Skin: No rashes, No breakdown Musculoskeletal: No Tenderness to Palpation of Joints or Extremities Lymphatic: No Cervical, Supraclavicular, or Inguinal Adenopathy Neurological: Cranial nerves II-XII grossly intact, Motor Exam 5/5 strength throughout Psych/Mental Status: Normal Affect, Appropriate, Alert and oriented to time, place, person, mood and affect Laboratory Results 03/04/18 11:43: POC Glucose 343 H 03/04/18 17:08: POC Glucose 360 H 03/04/18 22:09: POC Glucose 285 H 03/05/18 06:42: WBC 5.5, RBC 3.32 L, Hgb 10.3 L, Hct 28.7 L, MCV 86.4, MCH 31.0 , MCHC 35.9, RDW 12.6, RDW Differential 38.0, Plt Count 156, MPV 11.3, Immature Gran % (Auto) 0.000, Neut % (Auto) 58.2, Lymph % (Auto) 31.6, [place] % (Auto) 8.9 , Eos % (Auto) 0.9, Baso % (Auto) 0.4, Absolute Neuts (auto) 3.2, Absolute Lymphs (auto) 1.73, Total Counted Not Reportable 03/05/18 06:42: Sodium 146 H, Potassium 2.7 L*, Chloride 116 H, Carbon Dioxide 23.0, Anion Gap 7, BUN 9, Creatinine 0.76, Estim Creat Clear Calc 63.03, Est GFR (MDRD) Af Amer 98, Est GFR (MDRD) Non-Af 81, BUN/Creatinine Ratio 11.8, Glucose 82, Calcium 7.6 L, Phosphorus 0.8 L*, Magnesium 2.0 03/05/18 06:49: POC Glucose 73 Current Medications Al Hydroxide/Mg Hydroxide (Mylanta Ii) 30 ml PO Q6H PRN PRN PRN Reason: Gastric burning Last Admin: 03/04/18 18:50 Dose: 30 ml Dextrose (D50w Syringe) 0 gm IV X1 PRN; Protocol PRN Reason: HYPOGLYCEMIA Heparin Sodium (Porcine) (Heparin Na) 5,000 unit SC Q8 [facility] Last Admin: 03/05/18 06:52 Dose: 5,000 unit Sodium Chloride () 250 mls @ 15 mls/hr IV .[id number] PRN PRN Reason: SALINE FLUSH Potassium Phosphate 40 mm/ (Sodium Chloride) 513.3333 mls @ 62.5 mls/hr IV X1 ONE Stop: 03/05/18 16:42 Last Admin: 03/05/18 09:04 Dose: 62.5 mls/hr Insulin Glargine (Lantus (Bkc)) 15 units SC 1100,2200 [facility] Last Admin: 03/04/18 22:11 Dose: 15 units Insulin Human Lispro (Humalog Kwikpen ([facility])) 0 unit SC ACHS [facility] PRN Reason: Protocol Last Admin: 03/05/18 06:55 Dose: Not Given Magnesium Hydroxide (Milk Of Magnesia) 30 ml PO DAILY PRN PRN PRN Reason: Constipation Ondansetron HCl (Zofran) 4 mg IV Q8H PRN PRN PRN Reason: NAUSEA Last Admin: 03/03/18 09:24 Dose: 4 mg Pantoprazole Sodium (Protonix) 40 mg PO BID [facility] Last Admin: 03/05/18 09:06 Dose: 40 mg Potassium Chloride (K-Dur) 40 meq PO [facility]ID[facility] Stop: 03/05/18 17:01 Last Admin: 03/05/18 09:04 Dose: 40 meq Promethazine HCl (Phenergan) 12.5 mg IV Q6H PRN PRN PRN Reason: NAUSEA/VOMITING Sodium Chloride () 5 - 30 ml IV UD PRN PRN Reason: SALINE FLUSH Last Admin: 03/05/18 09:06 Dose: 10 ml Medical Necessity - Tobacco Use Smoking Status: Former smoker Tobacco Use: Non-smoker Assessment/Plan All Active Problems DKA (diabetic ketoacidoses) (Acute) CINDY (acute kidney injury) (Acute) 1. DKA in a known diabetic likely due to noncompliance * More alert today has no complaints. * DKA has resolved and anion gap is closed. * started on insulin lantus SC 15IU bid. to adjust as needed * 2. Hypokalemia and hypophosphatemia] * K is 2.7 and phosphate is 0.8 * replaced with potassiium phosphate. * will monitor BMP * * 3. Diabetes mellitus * management as per 1 * on ISS also. Will resume metformin. * 4. CINDY due to dehydration * resolved. Cr down to 0.76 * * * 5. Hypertension: * BP 90-150 systolic. Carvedilol on hold due to severe encephalopathy * will resume carvedilol. * 6. Hypernatremia * Na was 151 yesterdat; is 146 today. Likely due to IVF administration * will stop IVF * 7. Hyperlipidemia: on statin. 8. GERD: on PPI 9. DVT prophylaxis: heparin Code status: full code. This note was generated with [employer]ek Mobile[employer] software. It may contain incorrect words, spelling, and punctuation that were not noted in checking the note before signing. Code Visit Inpatient E&M: 02494 Subs Hosp L3
[2018-03-05 11:31] LABS: Bedside Glucose 394 mg/dL (70-110)
[2018-03-05] MEDS: Insulin Lispro 100 UNIT/ML INSULN.PEN SC ×3 (12:30→22:05)
--- NOTE | 2018-03-05 14:43 | CASEMGMT ---
Social Work Note SW in to update pt that she got accepted into [facility]. SW informed pt that this worker will need to get approval from her insurance and this worker is waiting for the doctor to complete documentation. Pt states understanding. SW attempted to call pt's niece Moni again to update and Iris was unable to answer and voice mailbox is still full. EVETTE placed a call to pt's sister in Law Ofelia and updated her that pt has been accepted into [facility] and that this worker is waiting to hear from pt's insurance. Ofelia states understanding. Plan: [facility] pending Level Of Care Susan Jane HEALTH SAFETY INSTRUCTOR, COMIC BOOK ARTIST
--- NOTE | 2018-03-05 15:37 | PCM.TXEXTCAR ---
- Diet 03/04/18 07:59 Diet: Cardiac: Carb-Controlled Is pt able to select menu?: No - Routine Orders/Code Status Enema Type: Fleetz Enema Frequency: Daily PRN Suppository Type: Dulcolax 10mg Suppository Frequency: Daily PRN O2 Frequency: PRN Keep PO Greater than or Equal to (%): 92 Code Status: Full Code - Wound(s) LT Knee Wound Type: Abrasion Rt elbow Wound Type: Abrasion - Therapies Weight Bearing: Full weight bearing Physical Therapy: Eval and Treat Occupational Therapy: Eval and Treat - Allergies/Procedures Done in Hospital Allergies/Adverse Reactions: Allergies Unable to Assess Allergy (Verified 03/03/18 04:17) Procedures: None - Type of Care/Length of Stay Estimated LOS: Convalescent Care Less Than 30 days Type of Care Needed: Skilled Rehab Potential: Good Prognosis: Good - Additional Orders/Day of Discharge H&P will serve as current which was dated: 03/03/18 Day of Discharge: 03/05/18 - Dietary and Speech Recommendations Dietitian Recommendations/Changes: Rec diet change to 1600 calorie, cardiac. - Follow Up Care Primary Care Physician: Care Physician,No Primary [NON-STAFF] - Please follow up with your Primary Care Physician in: one week
[2018-03-05 16:26] LABS: Bedside Glucose 227 mg/dL (70-110)
[2018-03-05] MEDS: Atorvastatin Calcium 40 MG Tablet PO (22:05)
[2018-03-05] MEDS: guaiFENesin 600 MG Tablet PO (22:05)
[2018-03-05] MEDS: Carvedilol 6.25 MG Tablet PO (22:05)
[2018-03-05 23:00] LABS: Bedside Glucose 206 mg/dL (70-110)
[2018-03-06] VITALS (8 sets, daily range): BP systolic 125–157; BP diastolic 69–93; PULSE 82–98; RESP 16; TEMP 36.6–36.9; O2SAT 98–99
[2018-03-06 06:25] LABS: Absolute Lymphocyte Count 1.96 X10^3/ul (0.83-4.51); Absolute Neutrophil Count 1.7 X10^3/uL (2.0-7.7); Basophil# 0.02 X10^3/uL; Basophil% 0.5 % (0-1); Eosinophil# 0.04 X10^3/uL; Hematocrit 30.6 % (37-47); Hemoglobin 10.7 g/dl (12.0-15.0); Lymphocyte # 1.96 X10^3/ul (4.0); Lymphocyte % 47.5 % (19-41); Mean Corpuscular Hgb 30.5 pg (27.0-32.0); Mean Corpuscular Volume 87.2 fL (81-99); Mean Platelet Vol. 11.9 fl (6.2-12.0); Monocyte# 0.41 X10^3/uL; Monocyte% 9.9 % (0-10); Neutrophil % 41.1 % (47-70); Platelet Count 161 K/mm3 (150-450); RBC Distribution Width CV 12.6 % (11.6-14.6); RBC Distribution Width SD 38.8 fl (35.1-43.9); Red Blood Count 3.51 M/mm3 (4.2-5.4); White Blood Count 4.1 K/mm3 (4.4-11.0)
[2018-03-06 06:27] LABS: POSITIVE COUNT NO; POSITIVE DIFFERENTIAL NO; POSITIVE MORPHOLOGY NO
[2018-03-06] MEDS: Heparin Injection (Vial) 5,000 UNIT/ML VIAL 5000 UNIT SC ×2 (06:43→14:23)
[2018-03-06] MEDS: Insulin Lispro 100 UNIT/ML INSULN.PEN SC (06:44)
[2018-03-06 06:56] LABS: Bedside Glucose 207 mg/dL (70-110)
[2018-03-06 07:03] LABS: Anion Gap 8 (5-15); BUN 10 mg/dL (7-18); Calcium,Total 7.5 mg/dL (8.5-10.1); Chloride 109 mmol/L (98-107); Creatinine, Serum 0.67 mg/dL (0.55-1.02); EST Glomerular Filtration Rate 95 mL/min (>60); Est Glom Filt Rate - Afr Amer 114 mL/min (>60); Estimated Creatinine Clearance 71.23 ml/min; Glucose 186 mg/dL (74-106); Phosphorus 2.1 mg/dL (2.5-4.9); Potassium 3.5 mmol/L (3.5-5.1); Sodium Level 141 mmol/L (136-145)
[2018-03-06] MEDS: FLUoxetine 20 MG Capsule PO (07:38)
[2018-03-06] MEDS: Calcium Carbonate 500 MG Tablet PO (07:38)
[2018-03-06] MEDS: Pantoprazole Sodium 40 MG Tablet PO (07:38)
[2018-03-06] MEDS: guaiFENesin 600 MG Tablet PO (07:38)
[2018-03-06] MEDS: Carvedilol 6.25 MG Tablet PO (07:38)
[2018-03-06] MEDS: Magnesium Oxide 400 MG Tablet PO (07:39)
[2018-03-06] MEDS: Loratadine 10 MG Tablet PO (07:39)
[2018-03-06] MEDS: Vitamin B Comp W-C Capsule 1 CAP PO (07:39)
--- NOTE | 2018-03-06 09:21 | CASEMGMT ---
Addendum entered by Susan Jane 03/06/18 11:11: EVETTE placed a call to Lanny at [facility] stating that this worker faxed Level of Care and is awaiting authorization from [facility] and once this worker receives Level of Care pt will be discharged. EVETTE informed Lanny that this worker should receive Level of Care today as it was submitted earlier this morning. Original Note: Social Work Note SW faxed Level Of Care to [facility]. EVETTE waiting for authorization from [facility]. Plan: [facility] once Level of Care is complete Susan Jane CORONER'S JUROR, SAFETY DEPOSIT SUPERVISOR
--- NOTE | 2018-03-06 10:01 | PCM.TXEXTCAR ---
- Diet 03/04/18 07:59 Diet: Cardiac: Carb-Controlled Is pt able to select menu?: No - Routine Orders/Code Status Enema Type: Fleetz Enema Frequency: Daily PRN Suppository Type: Dulcolax 10mg Suppository Frequency: Daily PRN O2 Frequency: PRN Keep PO Greater than or Equal to (%): 92 Code Status: Full Code - Wound(s) LT Knee Wound Type: Abrasion Rt elbow Wound Type: Abrasion - Therapies Weight Bearing: Weight bearing as tolerated Physical Therapy: Eval and Treat Occupational Therapy: Eval and Treat - Allergies/Procedures Done in Hospital Allergies/Adverse Reactions: Allergies Unable to Assess Allergy (Verified 03/03/18 04:17) Procedures: Central line placement - Type of Care/Length of Stay Estimated LOS: Convalescent Care Less Than 30 days Type of Care Needed: Intermediate Rehab Potential: Good Prognosis: Good - Additional Orders/Day of Discharge H&P will serve as current which was dated: 03/03/18 Day of Discharge: 03/06/18 - Dietary and Speech Recommendations Dietitian Recommendations/Changes: Rec diet change to 1600 calorie, cardiac. - Follow Up Care Primary Care Physician: Care Physician,No Primary [NON-STAFF] - In 1 Week Abbi Barba MD [STAFF PHYSICIAN] - Please follow up with your Primary Care Physician in: one week Please Follow Up With: Pratima Rai NP-C When: two weeks
--- NOTE | 2018-03-06 10:16 | DS.PCM_ITS ---
Discharge Date and Diagnosis Date of Admission: 03/03/18 Date of Discharge: 03/06/18 - Primary Discharge Diagnosis DKA due to noncompliance in a known diabetic - Secondary Discharge Diagnosis Chronic Problems GERD (gastroesophageal reflux disease) (Chronic) HLD (hyperlipidemia) (Chronic) HTN (hypertension) (Chronic) Diabetes mellitus, type II (Chronic) Hospital Course and Treatment Imaging Results: Diagnostic Data Brain CT 03/03/18 05:13 IMPRESSION: Chronic involutional changes of the brain. No demonstrated acute intracranial process. Electronically Signed: Sawyer Byrne MD at 6:20 EDT , Service support , Chest X-Ray 03/04/18 05:40 IMPRESSION: No focal consolidation. Electronically Signed: Keven Contreras DO at 9:33 EDT Tel , Service support , Laboratory Tests 03/03/18 03/03/18 03/03/18 04:18 04:39 04:48 WBC 15.2 H RBC 4.15 L Hgb 12.4 Hct 38.8 MCV 93.5 MCH 29.9 MCHC 32.0 RDW 13.3 RDW Differential 45.3 H Plt Count 326 MPV 13.2 H Immature Gran % (Auto) 0.300 Neut % (Auto) 89.8 H Lymph % (Auto) 4.6 L [place] % (Auto) 5.2 Eos % (Auto) 0.0 Baso % (Auto) 0.1 Absolute Neuts (auto) 13.6 H Absolute Lymphs (auto) 0.70 L Total Counted Not Reportable Differential Comment SCANNED PT INR APTT Specimen Type Sample Site pH Bicarbonate Actual POC Total CO2 Base Excess O2 Saturation ABG pCO2 ABG pO2 Eddi Test VBG pH VBG pO2 VBG O2 Sat (Calc) VBG O2 Content VBG Base Excess POC Mix VBG pCO2 Pt Tmp O2 Delivery Device Blood Gas Notified Whom Blood Gas Notified Time Sodium Potassium Chloride Carbon Dioxide Anion Gap BUN Creatinine Estim Creat Clear Calc Est GFR (MDRD) Af Amer Est GFR (MDRD) Non-Af BUN/Creatinine Ratio Glucose Hemoglobin A1c Calcium Phosphorus Magnesium Total Creatine Kinase Troponin I Urine Color Yellow Urine Clarity Clear Urine pH 6.0 Ur Specific [place] 1.015 Urine Protein 100 H Urine Glucose (UA) 1000 H Urine Ketones 150 H Urine Occult Blood 25 H Urine Nitrite Negative Urine Bilirubin Negative Urine Urobilinogen Normal Ur Leukocyte Esterase Negative Urine RBC 0 SEEN Urine WBC 0 SEEN Ur Squamous Epith Cells 0 SEEN Urine Bacteria 0 SEEN Urine Mucus 0 SEEN Urine Yeast RARE Acetone Level MRSA (PCR) POC Glucose > 500 H* 03/03/18 03/03/18 03/03/18 04:48 04:48 04:48 WBC RBC Hgb Hct MCV MCH MCHC RDW RDW Differential Plt Count MPV Immature Gran % (Auto) Neut % (Auto) Lymph % (Auto) [place] % (Auto) Eos % (Auto) Baso % (Auto) Absolute Neuts (auto) Absolute Lymphs (auto) Total Counted Differential Comment PT INR APTT Specimen Type Sample Site pH Bicarbonate Actual POC Total CO2 Base Excess O2 Saturation ABG pCO2 ABG pO2 Eddi Test VBG pH VBG pO2 VBG O2 Sat (Calc) VBG O2 Content VBG Base Excess POC Mix VBG pCO2 Pt Tmp O2 Delivery Device Blood Gas Notified Whom Blood Gas Notified Time Sodium 136 Potassium 3.6 Chloride 88 L Carbon Dioxide 5.0 L* Anion Gap 43 H BUN 29 H Creatinine 1.94 H Estim Creat Clear Calc 23.48 Est GFR (MDRD) Af Amer 33 L Est GFR (MDRD) Non-Af 28 L BUN/Creatinine Ratio 14.9 Glucose 899 H* Hemoglobin A1c 14.1 H Calcium 9.0 Phosphorus 8.2 H Magnesium 3.8 H Total Creatine Kinase Troponin I < 0.015 Urine Color Urine Clarity Urine pH Ur Specific [place] Urine Protein Urine Glucose (UA) Urine Ketones Urine Occult Blood Urine Nitrite Urine Bilirubin Urine Urobilinogen Ur Leukocyte Esterase Urine RBC Urine WBC Ur Squamous Epith Cells Urine Bacteria Urine Mucus Urine Yeast Acetone Level MODERATE H MRSA (PCR) POC Glucose 03/03/18 03/03/18 03/03/18 04:48 05:09 05:55 WBC RBC Hgb Hct MCV MCH MCHC RDW RDW Differential Plt Count MPV Immature Gran % (Auto) Neut % (Auto) Lymph % (Auto) [place] % (Auto) Eos % (Auto) Baso % (Auto) Absolute Neuts (auto) Absolute Lymphs (auto) Total Counted Differential Comment PT INR APTT Specimen Type Sample Site pH Bicarbonate Actual POC Total CO2 Base Excess O2 Saturation ABG pCO2 ABG pO2 Eddi Test VBG pH VBG pO2 VBG O2 Sat (Calc) VBG O2 Content VBG Base Excess POC Mix VBG pCO2 Pt Tmp O2 Delivery Device Blood Gas Notified Whom Blood Gas Notified Time Sodium Potassium Chloride Carbon Dioxide Anion Gap BUN Creatinine Estim Creat Clear Calc Est GFR (MDRD) Af Amer Est GFR (MDRD) Non-Af BUN/Creatinine Ratio Glucose Hemoglobin A1c Calcium Phosphorus Magnesium Total Creatine Kinase 123 Troponin I Urine Color Urine Clarity Urine pH Ur Specific [place] Urine Protein Urine Glucose (UA) Urine Ketones Urine Occult Blood Urine Nitrite Urine Bilirubin Urine Urobilinogen Ur Leukocyte Esterase Urine RBC Urine WBC Ur Squamous Epith Cells Urine Bacteria Urine Mucus Urine Yeast Acetone Level MRSA (PCR) POC Glucose > 500 H* > 500 H* 03/03/18 03/03/18 03/03/18 06:02 06:18 06:54 WBC RBC Hgb Hct MCV MCH MCHC RDW RDW Differential Plt Count MPV Immature Gran % (Auto) Neut % (Auto) Lymph % (Auto) [place] % (Auto) Eos % (Auto) Baso % (Auto) Absolute Neuts (auto) Absolute Lymphs (auto) Total Counted Differential Comment PT INR APTT Specimen Type DEBORAH Sample Site OTHER pH Bicarbonate Actual POC Total CO2 Base Excess O2 Saturation ABG pCO2 ABG pO2 Eddi Test VBG pH 7.03 L* VBG pO2 87 H VBG O2 Sat (Calc) 91 H VBG O2 Content < 5 L VBG Base Excess -28 L POC Mix VBG pCO2 Pt Tmp 12.1 L* O2 Delivery Device Room Air Blood Gas Notified Whom ED Blood Gas Notified Time 605 Sodium Potassium Chloride Carbon Dioxide Anion Gap BUN Creatinine Estim Creat Clear Calc Est GFR (MDRD) Af Amer Est GFR (MDRD) Non-Af BUN/Creatinine Ratio Glucose Hemoglobin A1c Calcium Phosphorus Magnesium Total Creatine Kinase Troponin I Urine Color Urine Clarity Urine pH Ur Specific [place] Urine Protein Urine Glucose (UA) Urine Ketones Urine Occult Blood Urine Nitrite Urine Bilirubin Urine Urobilinogen Ur Leukocyte Esterase Urine RBC Urine WBC Ur Squamous Epith Cells Urine Bacteria Urine Mucus Urine Yeast Acetone Level MRSA (PCR) POC Glucose > 500 H* > 500 H* 03/03/18 03/03/18 03/03/18 07:50 07:56 08:15 WBC RBC Hgb Hct MCV MCH MCHC RDW RDW Differential Plt Count MPV Immature Gran % (Auto) Neut % (Auto) Lymph % (Auto) [place] % (Auto) Eos % (Auto) Baso % (Auto) Absolute Neuts (auto) Absolute Lymphs (auto) Total Counted Differential Comment PT INR APTT Specimen Type Sample Site pH Bicarbonate Actual POC Total CO2 Base Excess O2 Saturation ABG pCO2 ABG pO2 Eddi Test VBG pH VBG pO2 VBG O2 Sat (Calc) VBG O2 Content VBG Base Excess POC Mix VBG pCO2 Pt Tmp O2 Delivery Device Blood Gas Notified Whom Blood Gas Notified Time Sodium 140 Potassium 2.3 L* Chloride 100 Carbon Dioxide 6.0 L* Anion Gap 34 H BUN 28 H Creatinine 1.88 H Estim Creat Clear Calc 23.60 Est GFR (MDRD) Af Amer 35 L Est GFR (MDRD) Non-Af 29 L BUN/Creatinine Ratio 14.9 Glucose 720 H* Hemoglobin A1c Calcium 8.7 Phosphorus Magnesium Total Creatine Kinase Troponin I Urine Color Urine Clarity Urine pH Ur Specific [place] Urine Protein Urine Glucose (UA) Urine Ketones Urine Occult Blood Urine Nitrite Urine Bilirubin Urine Urobilinogen Ur Leukocyte Esterase Urine RBC Urine WBC Ur Squamous Epith Cells Urine Bacteria Urine Mucus Urine Yeast Acetone Level MRSA (PCR) Negative POC Glucose > 500 H* 03/03/18 03/03/18 03/03/18 08:39 08:50 12:25 WBC RBC Hgb Hct MCV MCH MCHC RDW RDW Differential Plt Count MPV Immature Gran % (Auto) Neut % (Auto) Lymph % (Auto) [place] % (Auto) Eos % (Auto) Baso % (Auto) Absolute Neuts (auto) Absolute Lymphs (auto) Total Counted Differential Comment PT 13.3 INR 1.0 APTT 21.8 L Specimen Type ART Sample Site L Radial pH 7.08 L* Bicarbonate Actual 4.1 L POC Total CO2 < 5 Base Excess -26 L O2 Saturation 96 ABG pCO2 13.8 L* ABG pO2 110 H Eddi Test POS VBG pH VBG pO2 VBG O2 Sat (Calc) VBG O2 Content VBG Base Excess POC Mix VBG pCO2 Pt Tmp O2 Delivery Device Room Air Blood Gas Notified Whom ICU MD Blood Gas Notified Time 830 Sodium 144 Potassium 3.6 Chloride 114 H Carbon Dioxide 7.0 L* Anion Gap 23 H BUN 26 H Creatinine 1.39 H Estim Creat Clear Calc 31.92 Est GFR (MDRD) Af Amer 49 L Est GFR (MDRD) Non-Af 41 L BUN/Creatinine Ratio 18.7 Glucose 478 H* Hemoglobin A1c Calcium 7.3 L Phosphorus Magnesium Total Creatine Kinase Troponin I Urine Color Urine Clarity Urine pH Ur Specific [place] Urine Protein Urine Glucose (UA) Urine Ketones Urine Occult Blood Urine Nitrite Urine Bilirubin Urine Urobilinogen Ur Leukocyte Esterase Urine RBC Urine WBC Ur Squamous Epith Cells Urine Bacteria Urine Mucus Urine Yeast Acetone Level MRSA (PCR) POC Glucose 03/03/18 03/03/18 03/03/18 12:59 13:56 14:56 WBC RBC Hgb Hct MCV MCH MCHC RDW RDW Differential Plt Count MPV Immature Gran % (Auto) Neut % (Auto) Lymph % (Auto) [place] % (Auto) Eos % (Auto) Baso % (Auto) Absolute Neuts (auto) Absolute Lymphs (auto) Total Counted Differential Comment PT INR APTT Specimen Type Sample Site pH Bicarbonate Actual POC Total CO2 Base Excess O2 Saturation ABG pCO2 ABG pO2 Eddi Test VBG pH VBG pO2 VBG O2 Sat (Calc) VBG O2 Content VBG Base Excess POC Mix VBG pCO2 Pt Tmp O2 Delivery Device Blood Gas Notified Whom Blood Gas Notified Time Sodium Potassium Chloride Carbon Dioxide Anion Gap BUN Creatinine Estim Creat Clear Calc Est GFR (MDRD) Af Amer Est GFR (MDRD) Non-Af BUN/Creatinine Ratio Glucose Hemoglobin A1c Calcium Phosphorus Magnesium Total Creatine Kinase Troponin I Urine Color Urine Clarity Urine pH Ur Specific [place] Urine Protein Urine Glucose (UA) Urine Ketones Urine Occult Blood Urine Nitrite Urine Bilirubin Urine Urobilinogen Ur Leukocyte Esterase Urine RBC Urine WBC Ur Squamous Epith Cells Urine Bacteria Urine Mucus Urine Yeast Acetone Level MRSA (PCR) POC Glucose 408 H 385 H 348 H 03/03/18 03/03/18 03/03/18 16:00 16:02 17:04 WBC RBC Hgb Hct MCV MCH MCHC RDW RDW Differential Plt Count MPV Immature Gran % (Auto) Neut % (Auto) Lymph % (Auto) [place] % (Auto) Eos % (Auto) Baso % (Auto) Absolute Neuts (auto) Absolute Lymphs (auto) Total Counted Differential Comment PT INR APTT Specimen Type Sample Site pH Bicarbonate Actual POC Total CO2 Base Excess O2 Saturation ABG pCO2 ABG pO2 Eddi Test VBG pH VBG pO2 VBG O2 Sat (Calc) VBG O2 Content VBG Base Excess POC Mix VBG pCO2 Pt Tmp O2 Delivery Device Blood Gas Notified Whom Blood Gas Notified Time Sodium 151 H Potassium 3.2 L Chloride 123 H Carbon Dioxide 12.0 L Anion Gap 16 H BUN 23 H Creatinine 1.40 H Estim Creat Clear Calc 31.69 Est GFR (MDRD) Af Amer 49 L Est GFR (MDRD) Non-Af 40 L BUN/Creatinine Ratio 16.4 Glucose 313 H Hemoglobin A1c Calcium 7.3 L Phosphorus Magnesium Total Creatine Kinase Troponin I Urine Color Urine Clarity Urine pH Ur Specific [place] Urine Protein Urine Glucose (UA) Urine Ketones Urine Occult Blood Urine Nitrite Urine Bilirubin Urine Urobilinogen Ur Leukocyte Esterase Urine RBC Urine WBC Ur Squamous Epith Cells Urine Bacteria Urine Mucus Urine Yeast Acetone Level MRSA (PCR) POC Glucose 288 H 235 H 03/03/18 03/03/18 03/03/18 18:07 19:00 19:59 WBC RBC Hgb Hct MCV MCH MCHC RDW RDW Differential Plt Count MPV Immature Gran % (Auto) Neut % (Auto) Lymph % (Auto) [place] % (Auto) Eos % (Auto) Baso % (Auto) Absolute Neuts (auto) Absolute Lymphs (auto) Total Counted Differential Comment PT INR APTT Specimen Type Sample Site pH Bicarbonate Actual POC Total CO2 Base Excess O2 Saturation ABG pCO2 ABG pO2 Eddi Test VBG pH VBG pO2 VBG O2 Sat (Calc) VBG O2 Content VBG Base Excess POC Mix VBG pCO2 Pt Tmp O2 Delivery Device Blood Gas Notified Whom Blood Gas Notified Time Sodium Potassium Chloride Carbon Dioxide Anion Gap BUN Creatinine Estim Creat Clear Calc Est GFR (MDRD) Af Amer Est GFR (MDRD) Non-Af BUN/Creatinine Ratio Glucose Hemoglobin A1c Calcium Phosphorus Magnesium Total Creatine Kinase Troponin I Urine Color Urine Clarity Urine pH Ur Specific [place] Urine Protein Urine Glucose (UA) Urine Ketones Urine Occult Blood Urine Nitrite Urine Bilirubin Urine Urobilinogen Ur Leukocyte Esterase Urine RBC Urine WBC Ur Squamous Epith Cells Urine Bacteria Urine Mucus Urine Yeast Acetone Level MRSA (PCR) POC Glucose 258 H 265 H 264 H 03/03/18 03/03/18 03/03/18 20:03 21:05 23:04 WBC RBC Hgb Hct MCV MCH MCHC RDW RDW Differential Plt Count MPV Immature Gran % (Auto) Neut % (Auto) Lymph % (Auto) [place] % (Auto) Eos % (Auto) Baso % (Auto) Absolute Neuts (auto) Absolute Lymphs (auto) Total Counted Differential Comment PT INR APTT Specimen Type Sample Site pH Bicarbonate Actual POC Total CO2 Base Excess O2 Saturation ABG pCO2 ABG pO2 Eddi Test VBG pH VBG pO2 VBG O2 Sat (Calc) VBG O2 Content VBG Base Excess POC Mix VBG pCO2 Pt Tmp O2 Delivery Device Blood Gas Notified Whom Blood Gas Notified Time Sodium 150 H Potassium 4.0 Chloride 125 H Carbon Dioxide 15.0 L Anion Gap 10 BUN 21 H Creatinine 1.36 H Estim Creat Clear Calc 32.62 Est GFR (MDRD) Af Amer 50 L Est GFR (MDRD) Non-Af 42 L BUN/Creatinine Ratio 15.4 Glucose 278 H Hemoglobin A1c Calcium 7.3 L Phosphorus Magnesium Total Creatine Kinase Troponin I Urine Color Urine Clarity Urine pH Ur Specific [place] Urine Protein Urine Glucose (UA) Urine Ketones Urine Occult Blood Urine Nitrite Urine Bilirubin Urine Urobilinogen Ur Leukocyte Esterase Urine RBC Urine WBC Ur Squamous Epith Cells Urine Bacteria Urine Mucus Urine Yeast Acetone Level MRSA (PCR) POC Glucose 231 H 235 H 03/03/18 03/04/18 03/04/18 23:57 00:00 01:01 WBC RBC Hgb Hct MCV MCH MCHC RDW RDW Differential Plt Count MPV Immature Gran % (Auto) Neut % (Auto) Lymph % (Auto) [place] % (Auto) Eos % (Auto) Baso % (Auto) Absolute Neuts (auto) Absolute Lymphs (auto) Total Counted Differential Comment PT INR APTT Specimen Type Sample Site pH Bicarbonate Actual POC Total CO2 Base Excess O2 Saturation ABG pCO2 ABG pO2 Eddi Test VBG pH VBG pO2 VBG O2 Sat (Calc) VBG O2 Content VBG Base Excess POC Mix VBG pCO2 Pt Tmp O2 Delivery Device Blood Gas Notified Whom Blood Gas Notified Time Sodium 150 H Potassium 3.3 L Chloride 127 H* Carbon Dioxide 15.0 L Anion Gap 8 BUN 20 H Creatinine 1.31 H Estim Creat Clear Calc 33.87 Est GFR (MDRD) Af Amer 53 L Est GFR (MDRD) Non-Af 44 L BUN/Creatinine Ratio 15.3 Glucose 194 H Hemoglobin A1c Calcium 7.1 L Phosphorus Magnesium Total Creatine Kinase Troponin I Urine Color Urine Clarity Urine pH Ur Specific [place] Urine Protein Urine Glucose (UA) Urine Ketones Urine Occult Blood Urine Nitrite Urine Bilirubin Urine Urobilinogen Ur Leukocyte Esterase Urine RBC Urine WBC Ur Squamous Epith Cells Urine Bacteria Urine Mucus Urine Yeast Acetone Level MRSA (PCR) POC Glucose 174 H 164 H 03/04/18 03/04/18 03/04/18 02:20 03:28 04:20 WBC RBC Hgb Hct MCV MCH MCHC RDW RDW Differential Plt Count MPV Immature Gran % (Auto) Neut % (Auto) Lymph % (Auto) [place] % (Auto) Eos % (Auto) Baso % (Auto) Absolute Neuts (auto) Absolute Lymphs (auto) Total Counted Differential Comment PT INR APTT Specimen Type Sample Site pH Bicarbonate Actual POC Total CO2 Base Excess O2 Saturation ABG pCO2 ABG pO2 Eddi Test VBG pH VBG pO2 VBG O2 Sat (Calc) VBG O2 Content VBG Base Excess POC Mix VBG pCO2 Pt Tmp O2 Delivery Device Blood Gas Notified Whom Blood Gas Notified Time Sodium Potassium Chloride Carbon Dioxide Anion Gap BUN Creatinine Estim Creat Clear Calc Est GFR (MDRD) Af Amer Est GFR (MDRD) Non-Af BUN/Creatinine Ratio Glucose Hemoglobin A1c Calcium Phosphorus Magnesium Total Creatine Kinase Troponin I Urine Color Urine Clarity Urine pH Ur Specific [place] Urine Protein Urine Glucose (UA) Urine Ketones Urine Occult Blood Urine Nitrite Urine Bilirubin Urine Urobilinogen Ur Leukocyte Esterase Urine RBC Urine WBC Ur Squamous Epith Cells Urine Bacteria Urine Mucus Urine Yeast Acetone Level MRSA (PCR) POC Glucose 167 H 137 H 124 H 03/04/18 03/04/18 03/04/18 04:25 04:25 06:27 WBC 11.4 H RBC 3.44 L Hgb 10.6 L Hct 30.1 L MCV 87.5 MCH 30.8 MCHC 35.2 RDW 12.7 RDW Differential 39.1 Plt Count 229 MPV 11.3 Immature Gran % (Auto) Neut % (Auto) Lymph % (Auto) [place] % (Auto) Eos % (Auto) Baso % (Auto) Absolute Neuts (auto) Absolute Lymphs (auto) Total Counted Differential Comment PT INR APTT Specimen Type Sample Site pH Bicarbonate Actual POC Total CO2 Base Excess O2 Saturation ABG pCO2 ABG pO2 Eddi Test VBG pH VBG pO2 VBG O2 Sat (Calc) VBG O2 Content VBG Base Excess POC Mix VBG pCO2 Pt Tmp O2 Delivery Device Blood Gas Notified Whom Blood Gas Notified Time Sodium 151 H Potassium 3.1 L Chloride 126 H Carbon Dioxide 16.0 L Anion Gap 9 BUN 18 Creatinine 1.24 H Estim Creat Clear Calc 35.78 Est GFR (MDRD) Af Amer 56 L Est GFR (MDRD) Non-Af 46 L BUN/Creatinine Ratio 14.5 Glucose 115 H Hemoglobin A1c Calcium 7.2 L Phosphorus Magnesium Total Creatine Kinase Troponin I Urine Color Urine Clarity Urine pH Ur Specific [place] Urine Protein Urine Glucose (UA) Urine Ketones Urine Occult Blood Urine Nitrite Urine Bilirubin Urine Urobilinogen Ur Leukocyte Esterase Urine RBC Urine WBC Ur Squamous Epith Cells Urine Bacteria Urine Mucus Urine Yeast Acetone Level MRSA (PCR) POC Glucose 87 03/04/18 03/04/18 03/04/18 07:46 08:36 11:43 WBC RBC Hgb Hct MCV MCH MCHC RDW RDW Differential Plt Count MPV Immature Gran % (Auto) Neut % (Auto) Lymph % (Auto) [place] % (Auto) Eos % (Auto) Baso % (Auto) Absolute Neuts (auto) Absolute Lymphs (auto) Total Counted Differential Comment PT INR APTT Specimen Type Sample Site pH Bicarbonate Actual POC Total CO2 Base Excess O2 Saturation ABG pCO2 ABG pO2 Eddi Test VBG pH VBG pO2 VBG O2 Sat (Calc) VBG O2 Content VBG Base Excess POC Mix VBG pCO2 Pt Tmp O2 Delivery Device Blood Gas Notified Whom Blood Gas Notified Time Sodium Potassium Chloride Carbon Dioxide Anion Gap BUN Creatinine Estim Creat Clear Calc Est GFR (MDRD) Af Amer Est GFR (MDRD) Non-Af BUN/Creatinine Ratio Glucose Hemoglobin A1c Calcium Phosphorus Magnesium Total Creatine Kinase Troponin I Urine Color Urine Clarity Urine pH Ur Specific [place] Urine Protein Urine Glucose (UA) Urine Ketones Urine Occult Blood Urine Nitrite Urine Bilirubin Urine Urobilinogen Ur Leukocyte Esterase Urine RBC Urine WBC Ur Squamous Epith Cells Urine Bacteria Urine Mucus Urine Yeast Acetone Level MRSA (PCR) POC Glucose 73 90 343 H 03/04/18 03/04/18 03/05/18 17:08 22:09 06:42 WBC 5.5 RBC 3.32 L Hgb 10.3 L Hct 28.7 L MCV 86.4 MCH 31.0 MCHC 35.9 RDW 12.6 RDW Differential 38.0 Plt Count 156 MPV 11.3 Immature Gran % (Auto) 0.000 Neut % (Auto) 58.2 Lymph % (Auto) 31.6 [place] % (Auto) 8.9 Eos % (Auto) 0.9 Baso % (Auto) 0.4 Absolute Neuts (auto) 3.2 Absolute Lymphs (auto) 1.73 Total Counted Not Reportable Differential Comment PT INR APTT Specimen Type Sample Site pH Bicarbonate Actual POC Total CO2 Base Excess O2 Saturation ABG pCO2 ABG pO2 Eddi Test VBG pH VBG pO2 VBG O2 Sat (Calc) VBG O2 Content VBG Base Excess POC Mix VBG pCO2 Pt Tmp O2 Delivery Device Blood Gas Notified Whom Blood Gas Notified Time Sodium Potassium Chloride Carbon Dioxide Anion Gap BUN Creatinine Estim Creat Clear Calc Est GFR (MDRD) Af Amer Est GFR (MDRD) Non-Af BUN/Creatinine Ratio Glucose Hemoglobin A1c Calcium Phosphorus Magnesium Total Creatine Kinase Troponin I Urine Color Urine Clarity Urine pH Ur Specific [place] Urine Protein Urine Glucose (UA) Urine Ketones Urine Occult Blood Urine Nitrite Urine Bilirubin Urine Urobilinogen Ur Leukocyte Esterase Urine RBC Urine WBC Ur Squamous Epith Cells Urine Bacteria Urine Mucus Urine Yeast Acetone Level MRSA (PCR) POC Glucose 360 H 285 H 03/05/18 03/05/18 03/05/18 06:42 06:49 11:25 WBC RBC Hgb Hct MCV MCH MCHC RDW RDW Differential Plt Count MPV Immature Gran % (Auto) Neut % (Auto) Lymph % (Auto) [place] % (Auto) Eos % (Auto) Baso % (Auto) Absolute Neuts (auto) Absolute Lymphs (auto) Total Counted Differential Comment PT INR APTT Specimen Type Sample Site pH Bicarbonate Actual POC Total CO2 Base Excess O2 Saturation ABG pCO2 ABG pO2 Eddi Test VBG pH VBG pO2 VBG O2 Sat (Calc) VBG O2 Content VBG Base Excess POC Mix VBG pCO2 Pt Tmp O2 Delivery Device Blood Gas Notified Whom Blood Gas Notified Time Sodium 146 H Potassium 2.7 L* Chloride 116 H Carbon Dioxide 23.0 Anion Gap 7 BUN 9 Creatinine 0.76 Estim Creat Clear Calc 63.03 Est GFR (MDRD) Af Amer 98 Est GFR (MDRD) Non-Af 81 BUN/Creatinine Ratio 11.8 Glucose 82 Hemoglobin A1c Calcium 7.6 L Phosphorus 0.8 L* Magnesium 2.0 Total Creatine Kinase Troponin I Urine Color Urine Clarity Urine pH Ur Specific [place] Urine Protein Urine Glucose (UA) Urine Ketones Urine Occult Blood Urine Nitrite Urine Bilirubin Urine Urobilinogen Ur Leukocyte Esterase Urine RBC Urine WBC Ur Squamous Epith Cells Urine Bacteria Urine Mucus Urine Yeast Acetone Level MRSA (PCR) POC Glucose 73 394 H 03/05/18 03/05/18 03/06/18 16:18 22:03 05:48 WBC 4.1 L RBC 3.51 L Hgb 10.7 L Hct 30.6 L MCV 87.2 MCH 30.5 MCHC 35.0 RDW 12.6 RDW Differential 38.8 Plt Count 161 MPV 11.9 Immature Gran % (Auto) 0.000 Neut % (Auto) 41.1 L Lymph % (Auto) 47.5 H [place] % (Auto) 9.9 Eos % (Auto) 1.0 Baso % (Auto) 0.5 Absolute Neuts (auto) 1.7 L Absolute Lymphs (auto) 1.96 Total Counted Not Reportable Differential Comment PT INR APTT Specimen Type Sample Site pH Bicarbonate Actual POC Total CO2 Base Excess O2 Saturation ABG pCO2 ABG pO2 Eddi Test VBG pH VBG pO2 VBG O2 Sat (Calc) VBG O2 Content VBG Base Excess POC Mix VBG pCO2 Pt Tmp O2 Delivery Device Blood Gas Notified Whom Blood Gas Notified Time Sodium Potassium Chloride Carbon Dioxide Anion Gap BUN Creatinine Estim Creat Clear Calc Est GFR (MDRD) Af Amer Est GFR (MDRD) Non-Af BUN/Creatinine Ratio Glucose Hemoglobin A1c Calcium Phosphorus Magnesium Total Creatine Kinase Troponin I Urine Color Urine Clarity Urine pH Ur Specific [place] Urine Protein Urine Glucose (UA) Urine Ketones Urine Occult Blood Urine Nitrite Urine Bilirubin Urine Urobilinogen Ur Leukocyte Esterase Urine RBC Urine WBC Ur Squamous Epith Cells Urine Bacteria Urine Mucus Urine Yeast Acetone Level MRSA (PCR) POC Glucose 227 H 206 H 03/06/18 03/06/18 05:48 06:41 WBC RBC Hgb Hct MCV MCH MCHC RDW RDW Differential Plt Count MPV Immature Gran % (Auto) Neut % (Auto) Lymph % (Auto) [place] % (Auto) Eos % (Auto) Baso % (Auto) Absolute Neuts (auto) Absolute Lymphs (auto) Total Counted Differential Comment PT INR APTT Specimen Type Sample Site pH Bicarbonate Actual POC Total CO2 Base Excess O2 Saturation ABG pCO2 ABG pO2 Eddi Test VBG pH VBG pO2 VBG O2 Sat (Calc) VBG O2 Content VBG Base Excess POC Mix VBG pCO2 Pt Tmp O2 Delivery Device Blood Gas Notified Whom Blood Gas Notified Time Sodium 141 Potassium 3.5 Chloride 109 H Carbon Dioxide 24.0 Anion Gap 8 BUN 10 Creatinine 0.67 Estim Creat Clear Calc 71.23 Est GFR (MDRD) Af Amer 114 Est GFR (MDRD) Non-Af 95 BUN/Creatinine Ratio 15.0 Glucose 186 H Hemoglobin A1c Calcium 7.5 L Phosphorus 2.1 L Magnesium Total Creatine Kinase Troponin I Urine Color Urine Clarity Urine pH Ur Specific [place] Urine Protein Urine Glucose (UA) Urine Ketones Urine Occult Blood Urine Nitrite Urine Bilirubin Urine Urobilinogen Ur Leukocyte Esterase Urine RBC Urine WBC Ur Squamous Epith Cells Urine Bacteria Urine Mucus Urine Yeast Acetone Level MRSA (PCR) POC Glucose 207 H Operations: None Procedures: Central line placement Summary of Care Provided: The patient is a 62 year old F with a history of diabetes mellitus type 2, hypertension, hyperlipidemia and GERD. She was admitted by the ED on 03/03/2018 after she was found by her neighbor and noted to be very lethargic and minimally responsive. She is unable to give much history in the ED but did state that she was a diabetic did not know which type, and could not give any other information. According to family who presented later, she had been noted to be more confused and lethargic over the last 24 hours prior to admission with nausea and emesis and having very irregular behavior including stripping and defecating in the garbage. She had previously been living alone and had recently moved in with her family; in the ED, labs showed bicarb level of 5 with an anion gap of 43, creatinine of 1.94 and glucose of 8099. Magnesium was 3.8 initial potassium was 3.6. She is admitted to the ICU after CT head was done which was also negative and managed for DKA in a nondiabetic likely due to noncompliance, acute metabolic encephalopathy due to DKA and CINDY. She was hydrated with IV fluids and was started on insulin drip. Subsequently insulin drip was stopped briefly as potassium dropped to less than 3. Potassium was replaced and insulin drip was resumed. Hemoglobin A1c came back at 14. Anion gap closed in the ICU with IV fluid and IV insulin drip administration. Patient was subsequently transitioned to subcut insulin 15 units twice daily and home metformin was also resumed. Acute kidney injury resolved and creatinine trended down to normal. Patient was noted to have hypo-kalemia and hypophosphatemia and these were replaced with potassium phosphate. Patient remained stable though skilled to [facility] by PT. She was discharged to the [facility] on 03/06/2018 with a prescription for subcut insulin 50 units twice daily; metformin was increased to thousand milligrams twice daily and on insulin sliding scale. Blood pressure medication (carvedilol) which were held on admission due to encephalopathy were resumed and blood pressure control improved. She has no primary care doctor and so was referred to Dr. Barba of [facility] and also referred to the endocrinology nurse practitioner to follow-up for diabetes. Patient seen and examined prior to discharge. She complained of mild pain in the right side of her neck where central line had been inserted. She denies any fever or chills, any cough or chest pain, shortness of breath, abdominal pain, any diarrhea vomiting. Review of systems otherwise negative. Labs and vitals reviewed. On examination Vital Signs Height 4 ft 10 in Weight: 115 lb 11.883 oz Weight in Pounds 115.7 lbs Pulse Ox 98 Temperature 97.9 F Pulse Rate 98 Respiratory Rate 16 Blood Pressure [BP] 154/92 Blood Pressure 157/93 Blood Pressure Position [BP] Semi-Fowlers Blood Pressure Position Semi-Fowlers []General: Alert, Oriented x3, Cooperative, No apparent distress HEENT: Atraumatic, PERRLA, EOMI, Normocephalic Oral: Moist Mucosa Neck: Supple, No JVD, Negative Carotid Bruits. No swelling over left side of neck; minimal tenderness and no erythema. Clean dressing over site of central line insertion Lungs: Clear to auscultation, Normal air movement, No rhonchi, No wheeze, No rales Cardiovascular: Regular rate, Regular Rhythm, Normal S1, Normal S2, No murmurs Abdomen: Bowel Sounds Present, Soft, Non Tender, Non-Distended, No Hepato- splenomegaly Extremities: No clubbing, No cyanosis, No edema, Capillary Refill Less than 3 Seconds Skin: No rashes, No breakdown Musculoskeletal: No Tenderness to Palpation of Joints or Extremities Lymphatic: No Cervical, Supraclavicular, or Inguinal Adenopathy Neurological: Cranial nerves II-XII grossly intact, Motor Exam 5/5 strength throughout Psych/Mental Status: Normal Affect, Appropriate, Alert and oriented to place, person, mood and affect Plan as stated above. Discharge summary copied to Dr. Barba and REBECCA Rai (CHARACTER IMPERSONATOR- endocrinology) as patient has been referred to them for follow up. This note was generated with [employer] dictation software. It may contain incorrect words, spelling, and punctuation that were not noted in checking the note before signing. Discharge Diet: 1800 Calorie Control Diet Discharge Activity: Return to Normal Activity Weight Bearing Status: Weight bearing as tolerated Call your doctor if you observe: Dizziness, - - altered mental status Home Medications: Medications to take at Discharge Albuterol Inhaler [Ventolin Hfa] 2 puff INHALATION Q6H PRN PRN 03/03/18 Atorvastatin Calcium 40 mg PO DAILY 03/03/18 B Complex with Vitamin C [Vitamin B-Complex with Vit C] 1 each PO DAILY Benzonatate [Tessalon Perle] 100 mg PO TID PRN PRN 03/03/18 Calcium Citrate 200 mg PO DAILY 03/03/18 Carvedilol 6.25 mg PO BID 03/03/18 Dextrose [Glucose Bits] 1 gm PO PRN PRN 03/03/18 Docusate Sodium [Colace] 100 mg PO DAILY PRN PRN 03/03/18 Fexofenadine HCl 180 mg PO DAILY 03/03/18 Flavoxate HCl 100 mg PO TID PRN 03/03/18 Fluoxetine HCl 20 mg PO DAILY 03/03/18 Gabapentin [Neurontin] 600 mg PO TIDCM 03/03/18 Guaifenesin [Mucinex] 600 mg PO BID 03/03/18 Insulin Aspart [Novolog Flexpen] 10 units SC TIDCM 03/03/18 Loperamide HCl [Loperamide] 2 mg PO 4X/DAY PRN PRN 03/03/18 Magnesium Oxide [Mag-Ox 400] 400 mg PO DAILY 03/03/18 Methocarbamol [Robaxin] 500 mg PO TID PRN 03/03/18 Omeprazole 40 mg PO DAILY 03/03/18 Potassium Chloride 10 meq PO DAILY 03/03/18 Insulin Glargine [Lantus SoloStar Pen] 15 units SC 1100,2200 #20 pen 03/06/18 Metformin HCl 1,000 mg PO BID #60 tab 03/06/18 Na Biphos/Potassium Phosphate [Neutra-Phos Packet] 1 packet PO TID #20 packet Following Prescrptions Were Given to Patient: Insulin Glargine [Lantus SoloStar Pen] 15 units SC 1100,2200 #20 pen Metformin HCl 1,000 mg PO BID #60 tab Na Biphos/Potassium Phosphate [Neutra-Phos Packet] 1 packet PO TID #20 packet Primary Care Physician: Abbi Barba MD [STAFF PHYSICIAN] - Care Physician,No Primary [NON-STAFF] - In 1 Week Please follow up with your Primary Care Physician in: one week Please Follow Up With: Pratima Rai NP-C When: two weeks Disposition: [facility] facility Minutes spent on discharge:: 40 Patient Condition:: Stable Medical Necessity - Tobacco Use Smoking Status: Former smoker Tobacco Use: Non-smoker Meaningful Use Info Meaningful Use Diagnoses (Choose all that apply): None applicable Code Visit Inpatient E&M: 20585 Disch Hosp
[2018-03-06 11:30] LABS: Bedside Glucose 474 mg/dL (70-110)
[2018-03-06] MEDS: Insulin Lispro 100 UNIT/ML INSULN.PEN 10 UNIT SC (11:34)
--- NOTE | 2018-03-06 13:44 | CASEMGMT ---
Social Work Note SW placed a call to Becca Hung at [facility] and this SW asked about Level of Care for pt. Becca states that she received the Level of Care and there is one more in front of it. Plan: Discharge to [facility] when Level of Care is confirmed Susan Jane [employer] AGENT, SR. DIRECTOR
== END 2018-03-06 15:32 | disposition skilled nursing facility (03) | DRG 294 ==
LOC: ED 06:57 → ICU 07:02 → MS3 03-04 13:29
PROVIDERS: Internal Medicine Critical Care Medicine; Admitting Provider Family Medicine; Emergency Provider Emergency Medicine; Visit Provider Student in an Organized Health Care Education/Training Program
DX: E11.10 Type 2 diabetes mellitus with ketoacidosis without coma (principal); N17.9 Acute kidney failure, unspecified; G93.41 Metabolic encephalopathy; Z79.4 Long term (current) use of insulin; K21.9 Gastro-esophageal reflux disease without esophagitis; E78.5 Hyperlipidemia, unspecified; I10 Essential (primary) hypertension; Z87.891 Personal history of nicotine dependence; Z91.19 Patient's noncompliance with other medical treatment and regimen
CPT/HCPCS: 36415; 36600; 70450; 71045; 80048; 81001; 82009; 82550; 82803; 82962; 83036; 83735; 84100; 84484; 85025; 85027; 85610; 85730; 87641; 93005; 97110; 97116; 97162; 97165; 97530; 97802; 99285; J7030; J7040; A4216; C1751; J2405; J7799

== ENCOUNTER → 2018-03-11 05:00 | Outpatient (REF) | payer MEDICAID, SELFPAY ==
[2018-03-11 11:46] LABS: Absolute Lymphocyte Count 1.81 X10^3/ul (0.83-4.51); Absolute Neutrophil Count 2.6 X10^3/uL (2.0-7.7); Basophil# 0.03 X10^3/uL; Basophil% 0.6 % (0-1); Eosinophil# 0.09 X10^3/uL; Eosinophils% 1.7 % (0-5); Hematocrit 34.6 % (37-47); Hemoglobin 11.1 g/dl (12.0-15.0); Lymphocyte # 1.81 X10^3/ul (4.0); Lymphocyte % 34.2 % (19-41); Mean Corp Hgb Conc 32.1 g/gl (32-36); Mean Corpuscular Hgb 29.9 pg (27.0-32.0); Mean Corpuscular Volume 93.3 fL (81-99); Mean Platelet Vol. 11.2 fl (6.2-12.0); Monocyte# 0.72 X10^3/uL; Monocyte% 13.6 % (0-10); Neutrophil # 2.59 X10^3/uL (2.7-7.7); Platelet Count 321 K/mm3 (150-450); RBC Distribution Width CV 13.5 % (11.6-14.6); RBC Distribution Width SD 43.4 fl (35.1-43.9); Red Blood Count 3.71 M/mm3 (4.2-5.4); White Blood Count 5.3 K/mm3 (4.4-11.0)
[2018-03-11 11:47] LABS: POSITIVE COUNT NO; POSITIVE DIFFERENTIAL NO; POSITIVE MORPHOLOGY NO
[2018-03-11 11:51] LABS: ALB/GLOB Ratio 0.8 RATIO (0.9-2.4); AST(SGOT) 63 U/L (15-37); Alanine Aminotransfer ALT/SGPT 51 U/L (13-56); Albumin, Serum 2.8 g/dL (3.2-5.0); Alkaline Phosphatase 98 U/L (45-117); Anion Gap 8 (5-15); BUN 15 mg/dL (7-18); Calcium,Total 8.6 mg/dL (8.5-10.1); Chloride 106 mmol/L (98-107); Creatinine, Serum 0.94 mg/dL (0.55-1.02); EST Glomerular Filtration Rate 64 mL/min (>60); Est Glom Filt Rate - Afr Amer 77 mL/min (>60); Globulin 3.5 g/dL (2.2-4.2); Glucose 162 mg/dL (74-106); Potassium 4.3 mmol/L (3.5-5.1); Protein, Total 6.3 g/dL (6.4-8.2); Sodium Level 139 mmol/L (136-145)
== END ==
LOC: OLS.AVED 05:00
PROVIDERS: Visit Provider Family Medicine
DX: D64.9 Anemia, unspecified (principal); E11.9 Type 2 diabetes mellitus without complications
CPT/HCPCS: 36415; 80053; 85025

== ENCOUNTER → 2018-04-21 04:00 | Outpatient (REF) | payer MEDICAID, SELFPAY ==
[2018-04-21 09:30] LABS: Anion Gap 11 (5-15); BUN 20 mg/dL (7-18); BUN/Creat Ratio 25.6 RATIO (10-20); Calcium,Total 8.8 mg/dL (8.5-10.1); Chloride 104 mmol/L (98-107); Creatinine, Serum 0.78 mg/dL (0.55-1.02); EST Glomerular Filtration Rate 79 mL/min (>60); Est Glom Filt Rate - Afr Amer 96 mL/min (>60); Glucose 167 mg/dL (74-106); Potassium 3.9 mmol/L (3.5-5.1); Sodium Level 142 mmol/L (136-145)
== END ==
LOC: OLS.AVEB 04:00
PROVIDERS: Visit Provider Family Medicine
DX: E11.9 Type 2 diabetes mellitus without complications (principal); I10 Essential (primary) hypertension
CPT/HCPCS: 36415; 80048